=== PATIENT | female | born 1985 | race Caucasian/White ===

== ENCOUNTER 2021-01-14 21:27 | Emergency (ER) | payer OTHER, SELFPAY ==
[2021-01-14] VITALS (10 sets, daily range): BP systolic 126–133; BP diastolic 66–77; PULSE 115; RESP 18; TEMP 36.2; O2SAT 99–100
[2021-01-14] MEDS: SODIUM CHLORIDE 0.9% IV 1,000 ML 999 ML IV CONT (22:24)
[2021-01-14] MEDS: METOCLOPRAMIDE HCL INJ 10 MG/2 ML VIAL IV PUSH (22:24)
[2021-01-14] MEDS: diphenhydrAMINE HCl INJ 50 MG/ML VIAL 25 MG IV PUSH (22:24)
[2021-01-14 22:35] LABS: Basophils Percent Auto 0.2 % (0.2-1.2); Eosinophils Percent Auto 0.2 % (0-4.4); Hematocrit 33.2 % (37.0-47.0); Hemoglobin 11.3 g/dL (12.0-15.0); Immature Granulocyte Absolute 0.08 K/mm3 (0.00-0.031); Immature Granulocyte Percent A 0.6 % (0-0.5); Lymphocytes Absolute Auto 1.19 K/mm3 (0.9-3.2); Lymphocytes Percent Auto 9.5 % (18.3-44.2); Mean Corpuscular Volume 76.5 fl (80-100); Mean Platelet Volume 11.1 fl (7.4-10.4); Monocytes Percent Auto 7.7 % (2.6-8.5); Neutrophils Absolute Auto 10.2 K/mm3 (1.3-6.7); Neutrophils Percent Auto 81.8 % (45.5-73.1); Platelet Count Result 311 k/mm3 (150-375); Red Blood Count 4.34 M/mm3 (4.2-5.4); Red Cell Distribution Width 16.8 % (11.5-14.5); White Blood Count 12.5 K/mm3 (4.5-10.0)
--- NOTE | 2021-01-14 22:40 | PC.NURSE ---
Patient states she is unable to provide a urine specimen. Patient a/ox4, refusing straight cath. Patient aware of need for urine specimen.
--- NOTE | 2021-01-14 22:56 | ED.GENADULT ---
HPI - General Adult General Chief complaint: Nausea/Vomiting/Diarrhea Stated complaint: vomiting x 3 Time Seen by Provider: 01/14/21 22:08 History of Present Illness HPI narrative: Patient is a 35-year-old female presents to emergency department chief complaint of nausea and vomiting. Patient reports about 14 weeks and reports this evening she had about 3 episodes of nausea and vomiting patient denies fever denies abdominal pain denies diarrhea. Patient reports she has had problems with nausea during the but has been able to keep fluids down. Patient denies any trauma denies any vaginal bleeding or loss of fluids. Related Data Home Medications Medication Instructions Recorded Confirmed Pre-Sri Multivitamins/Minerals 01/14/21 Allergies Allergy/AdvReac Type Severity Reaction Status Date / Time Sulfa (Sulfonamide Allergy Vomiting Verified 01/14/21 21:43 Antibiotics) sulfamethoxazole Allergy Vomiting Verified 01/14/21 21:43 [From Bactrim] trimethoprim [From Bactrim] Allergy Vomiting Verified 01/14/21 21:43 Review of Systems Review of Systems: A 10 system review of systems was completed on the patient and is negative except for what is stated in the HPI. Nursing and ancillary documentation was reviewed. Exam Narrative: GENERAL: Well-appearing, well-nourished, and in no acute distress. HEAD: Normocephalic, atraumatic. EYES: PERRLA and EOMI. ENT: Nares clear, no rhinorrhea or epistaxis. Mucous membranes moist. NECK: Supple. CHEST: Clear to auscultation. No respiratory distress. HEART: Regular rate and rhythm. No murmur heard. Normal peripheral pulses. ABDOMEN: Soft, nontender, nondistended, normal active bowel sounds. EXTREMITIES: Normal range of motion. No edema. SKIN: Warm, dry, no rash. NEURO: No focal deficits. Alert and oriented x3. PSYCH: Normal mood and affect. Course Vital Signs Vital signs: Vital Signs Temperature 36.2 C L 01/14/21 21:40 Pulse Rate 115 H 01/14/21 21:40 Respiratory Rate 18 01/14/21 21:40 Blood Pressure 132/76 01/14/21 21:40 Pulse Oximetry 100 01/14/21 21:40 Temperature 36.2 C L 01/14/21 21:40 Pulse Rate 115 H 01/14/21 21:40 Respiratory Rate 18 01/14/21 21:40 Blood Pressure 130/77 01/14/21 23:31 Pulse Oximetry 100 01/14/21 23:31 Medical Decision Making Vital Signs Vital Signs: Vital Signs Temperature 36.2 C L 01/14/21 21:40 Pulse Rate 115 H 01/14/21 21:40 Respiratory Rate 18 01/14/21 21:40 Blood Pressure 132/76 01/14/21 21:40 Pulse Oximetry 100 01/14/21 21:40 Temperature 36.2 C L 01/14/21 21:40 Pulse Rate 115 H 01/14/21 21:40 Respiratory Rate 18 01/14/21 21:40 Blood Pressure 130/77 01/14/21 23:31 Pulse Oximetry 100 01/14/21 23:31 Lab Data Result diagrams: 01/14/21 22:29 01/14/21 22:29 Labs: Lab Results 01/14/21 01/14/21 01/14/21 Range/Units 22:29 22:29 22:58 WBC 12.5 H (4.5-10.0) K/mm3 RBC 4.34 (4.2-5.4) M/mm3 Hgb 11.3 L (12.0-15.0) g/dL Hct 33.2 L (37.0-47.0) % MCV 76.5 L (80-100) fl MCH 26.0 (26-34) pg MCHC 34.0 (32-36) g/dl RDW 16.8 H (11.5-14.5) % Plt Count 311 (150-375) k/mm3 MPV 11.1 H (7.4-10.4) fl Immature Gran % (Auto) 0.6 H (0-0.5) % Neut % (Auto) 81.8 H (45.5-73.1) % Lymph % (Auto) 9.5 L (18.3-44.2) % [place] % (Auto) 7.7 (2.6-8.5) % Eos % (Auto) 0.2 (0-4.4) % Baso % (Auto) 0.2 (0.2-1.2) % Lymph # (Auto) 1.19 (0.9-3.2) K/mm3 [place] # (Auto) 1.0 H (0.1-0.6) K/mm3 Eos # (Auto) 0.0 (0-0.3) K/mm3 Baso # (Auto) 0.0 (0.0-0.1) K/mm3 Abs Immat Gran (auto) 0.08 H (0.00-0.031) K/mm3 Absolute Neuts (auto) 10.2 H (1.3-6.7) K/mm3 Absolute Nucleated RBC 0.0 (0.0-0.012) K/mm3 Nucleated RBC % 0.0 (0.0-0.2) % Sodium 133 L (137-145) mmol/L Potassium 3.9 (3.4-5.0) mmol/L Chloride 104 (98-107) mmol/L Carbon Di
[2021-01-14 23:05] LABS: Alanine Aminotransferase 13 U/L (4-35); Alkaline Phosphatase 105 U/L (38-126); Anion Gap 7 mmol/L (8-16); Aspartate Amino Transferase 44 U/L (14-36); Bilirubin,Total 0.6 mg/dL (0.2-1.3); Blood Urea Nitrogen 7 mg/dL (7-17); Carbon Dioxide 22 mmol/L (22-30); Chloride 104 mmol/L (98-107); Estimated CRCL calculation 127 ml/min; Estimated Glomerular Filt Rate > 60; Glucose 94 mg/dL (65-110); Potassium 3.9 mmol/L (3.4-5.0); Sodium 133 mmol/L (137-145)
[2021-01-14 23:21] LABS: Lactic Acid Reflex 0.8 mmol/L (0.7-2.1)
[2021-01-14 23:36] LABS: Add Urine Microscopic? YES; Appearance Urine Cloudy (Clear); Bacteria Urine Trace /hpf; Bilirubin Urine Negative (Negative); Blood Urine Negative (Negative); Color Urine Yellow (Yellow); Glucose Urine UA Negative (Negative); Ketones Urine 1+ mg/dL (Negative); Leukocyte Esterase Ur Negative LEU/UL (Negative); Mucus Urine Heavy /lpf; Nitrate Urine Negative (Negative); Protein Urine 1+ mg/dL (Negative); Specific Grav Ur 1.018 (1.001-1.035); Squamous Epithelial Cell Urine Rare /hpf (Few); Urobilinogen Urine Negative mg/dL (<2.0); WBC Urine 0-3 /hpf
--- NOTE | 2021-01-14 23:56 | PC.NURSE ---
Patient given crackers and a cup of water for PO challenge. Patient states she does feel much better and her nausea has subsided.
[2021-01-15 00:19] VITALS: BP 130/77; PULSE 99; RESP 17; TEMP 36.6; O2SAT 100
== END 2021-01-15 00:20 | disposition home or self-care (01) ==
PROVIDERS: Emergency Provider Emergency Medicine; PCP Obstetrics & Gynecology
DX: O21.9 Vomiting of pregnancy, unspecified (principal); Z3A.14 14 weeks gestation of pregnancy
CPT/HCPCS: 36415; 80053; 81001; 83605; 85025; 96361; 96374; 96375; 99284; J1200; J2765; J7030

== ENCOUNTER 2021-06-25 15:55 | Inpatient (IN) | payer OTHER, SELFPAY ==
[2021-06-25] VITALS (17 sets, daily range): BP systolic 131–159; BP diastolic 73–91; PULSE 95–110; TEMP 37; BMI 35.4
--- OUTSIDE RECORDS SUMMARY | 2021-06-25 16:03 | XMS_ITS | Encounter Summary ---
:1985 Author Reason for Visit OB visit Assessment and Plan Assessment Note Patient is ___weeks . Discu ssed plan. 1. Routine care Discussion Note: None recorded.Patient educational handouts: No information available. Plan of Care Reminders Provider Appointments Induction Dontae Sunshine 06/26/2021 MD Lita 7:00AM ? Ob Routine Mat Sunshine 06/29/2021 MD Lita 3:45PM ? Ob Routine Mat Sunshine 07/05/2021 MD Lita 4:30PM Lab None ? ? recorded. Referral None ? ? recorded. Procedures None ? ? recorded. Surgeries None ? ? recorded. Imaging None ? ? recorded. Medications Name Start Date ? ? Gentle Iron (iron sulfate) ? iron ? ? Medications Administered None recorded. Vitals Height Weight BMI Blood Pressure 5 ft 2 in 189 lbs 34.6 kg/m2 (1) 146/85 mm[H g] (2) 137/88 mm[Hg ] Results Lab Results None recorded. Allergies Code Code Syst
--- OUTSIDE RECORDS SUMMARY | 2021-06-25 16:03 | XMS_ITS | Encounter Summary ---
:1985 Author Reason for Visit OB visit Assessment and Plan 1. Routine care Discussion Note: None recorded.Patient [...] BMI Blood Pressure 5 ft 2 in 182 lbs 33.3 kg/m2 123/75 mm[Hg] Results Lab Results None recorded. Allergies Code Code System Name Reaction Severity Onset 021147 RxNorm Bactrim Nausea Severe ?
--- OUTSIDE RECORDS SUMMARY | 2021-06-25 16:03 | XMS_ITS | Encounter Summary ---
[...] BMI Blood Pressure 5 ft 2 in 190 lbs 34.8 kg/m2 132/87 mm[Hg] Results Lab Results None recorded. Allergies Code Code System Name Reaction Severity Onset
--- OUTSIDE RECORDS SUMMARY | 2021-06-25 16:03 | XMS_ITS | Encounter Summary ---
:1985 Author Reason for Visit OB visit Assessment and Plan Assessment Note Patient is ___weeks . Discu ssed plan. 1. -induced hypertensio n Discussion Note: None recorded.Patient educational handouts: No information available. Plan of Care Reminders Provider Appointments Induction Dontae Sunsihne 06/26/2021 MD Lita 7:00AM ? Ob Routine [...] BMI Blood Pressure 5 ft 2 in 193 lbs 35.3 kg/m2 (1) 151/93 mm[H g] (2) 149/86 mm[Hg ] Results Lab Results None recorded. Allergies Code
--- OUTSIDE RECORDS SUMMARY | 2021-06-25 16:03 | XMS_ITS | Encounter Summary ---
[...] BMI Blood Pressure 5 ft 2 in 187 lbs 34.2 kg/m2 134/83 mm[Hg] Results Lab Results None recorded. Allergies Code Code System Name Reaction Severity Onset
--- OUTSIDE RECORDS SUMMARY | 2021-06-25 16:03 | XMS_ITS | Encounter Summary ---
:1985 Author Reason for Visit OB visit OB [id number] EDC 07/09/2021 LMP 10/06/2020 Assessment and Plan Assessment Note Patient is _32__weeks . Dis cussed plan. 1. Routine care Discussion Note: None [...] BMI Blood Pressure 5 ft 2 in 184 lbs 33.7 kg/m2 139/83 mm[Hg] Results Lab Results None recorded. Allergies Code Code System Name
--- OUTSIDE RECORDS SUMMARY | 2021-06-25 16:03 | XMS_ITS | Encounter Summary ---
:1985 Author Reason for Visit OB visit 30w2d Assessment and Plan 1. Routine care Discussion [...] ft 2 in 182 lbs 33.3 kg/m2 130/81 mm[Hg] Results Lab Results None recorded. Allergies Code Code System Name Reaction Severity Onset 770535 RxNorm Bactrim Nausea Severe ?
--- OUTSIDE RECORDS SUMMARY | 2021-06-25 16:03 | XMS_ITS | Encounter Summary ---
:1985 Author Reason for Visit None recorded. Assessment and Plan 1. -induced hypertensio n ? non-stress test Discussion Note: None recorded.Patient educational handouts: No information available. Plan of Care Reminders Provider Appointments Induction Dontae Sunshine 06/26/2021 MD Lita 7:00AM ? Ob Routine Mat Sunshine 06/29/2021 MD Lita 3:45PM ? Ob Routine Mat Sunshine 07/05/2021 MD Lita 4:30PM Lab None ? ? recorded. Referral None ? ? recorded. Procedures None ? ? recorded. Surgeries None ? ? recorded. Imaging Non-stress [place] Test 06/23/2021 Medications Name Start Date ? ? Gentle Iron (iron sulfate) ? iron ? ? Medications Administered None recorded. Vitals None recorded. Results Lab Results None recorded. Allergies Code Code System Name Reaction Severity Onset 863847 RxNorm Bactrim Nausea Severe ?
--- OUTSIDE RECORDS SUMMARY | 2021-06-25 16:03 | XMS_ITS | Encounter Summary ---
:1985 Author Reason for Visit None recorded. Assessment and Plan 1. Uterine size for dates discre pancy ? US, obstetric, follow-up Discussion Note: None recorded.Patient educational handouts: No information available. Plan of Care Reminders Provider Appointments Induction Dontae Sunshine 06/26/2021 MD Lita 7:00AM ? Ob Routine Mat Sunshine 06/29/2021 MD Lita 3:45PM ? Ob Routine Mat Sunshine 07/05/2021 MD Lita 4:30PM Lab None ? ? recorded. Referral None ? ? recorded. Procedures None ? ? recorded. Surgeries None ? ? recorded. Imaging , [place] [facility], Follow-up 06/15/2021 Medications Name Start Date ? ? Gentle Iron (iron sulfate) ? iron ? ? Medications Administered None recorded. Vitals None recorded. Results Lab Results None recorded. Allergies Code Code System Name Reaction Severity Onset 955895 RxNorm Bactrim Nausea Severe ?
--- OUTSIDE RECORDS SUMMARY | 2021-06-25 16:03 | XMS_ITS ---
:1985 Author Care Team Providers Name Role Phone Caesar London Primary Care Provider Unavailable Allergies Code Code System Name Reaction Severity Status Onset 434971 RxNorm Bactrim Nausea Severe Active ? Sulfa (Sulfonamide ? ? Active ? Antibiotics) 22040 RxNorm Sulfabenzamide Nausea Moderate Active ? Medications Name Status Start Date Stop Date ? ? fc2 female condom misc Completed ? 021 Gentle Iron (iron sulfate) Active ? Not a vailable iron Active ? Not available levonorgestrel 1.5 mg tablet Completed ? metoclopramide 10 mg tablet Completed ? 01/03 TAKE 1 TABLET BY MOUTH EVERY 6 HOURS NEEDED FOR NAUSEA OR VO MITING Active ? Not available Vienva 0.1 mg-20 mcg tablet Completed ? 12/02 Problems Name Status Onset Date Source ? Active 12/28/2020 ? Procedures Date Name Performed by ? 03/04/2010 Extraction of Strum Tooth Information n ot available 03/04/2008 Tonsilectomy/adenoids Information not av ailable ? Tonsilectomy/adenoids Information not av ailable 12/28/2020 US, Obstetric, 1St Trimester [place] [address] [place] [address] ([address]) 02/22/2021 US, Obstetric, 2Nd or 3Rd Trimester [place]ela montero [address]
[2021-06-25 16:58] LABS: Basophils Absolute Auto 0.1 K/mm3 (0.0-0.1); Basophils Percent Auto 0.4 % (0.2-1.2); Eosinophils Absolute Auto 0.1 K/mm3 (0-0.3); Eosinophils Percent Auto 0.5 % (0-4.4); Hematocrit 36.8 % (37.0-47.0); Hemoglobin 12.3 g/dL (12.0-15.0); Immature Granulocyte Absolute 0.23 K/mm3 (0.00-0.031); Immature Granulocyte Percent A 1.8 % (0-0.5); Lymphocytes Absolute Auto 2.59 K/mm3 (0.9-3.2); Lymphocytes Percent Auto 20.6 % (18.3-44.2); Mean Corpuscular HGB Conc 33.4 g/dl (32-36); Mean Corpuscular Hemoglobin 28.3 pg (26-34); Mean Corpuscular Volume 84.6 fl (80-100); Mean Platelet Volume 12.7 fl (7.4-10.4); Neutrophils Absolute Auto 8.7 K/mm3 (1.3-6.7); Neutrophils Percent Auto 68.7 % (45.5-73.1); Platelet Count Result 227 k/mm3 (150-375); Red Blood Count 4.35 M/mm3 (4.2-5.4); White Blood Count 12.6 K/mm3 (4.5-10.0)
--- NOTE | 2021-06-25 16:59 | WPDANESEPP ---
Anes - Eval Pre Procedure Procedure: labor epidural Date/Time: 06/25/21 16:59 Surgeon: soumya Pre Op Diagnosis: IOL Patient Data Age: 35 Gender: F Height: Weight: Last Vital Signs Pulse 95 06/25/21 16:31 BP 150/88 H 06/25/21 16:31 Allergies Allergy/AdvReac Type Severity Reaction Status Date / Time Sulfa (Sulfonamide Allergy Vomiting Verified 01/14/21 21:43 Antibiotics) sulfabenzamide Allergy Vomiting Verified 06/12/21 14:44 sulfamethoxazole Allergy Vomiting Verified 01/14/21 21:43 [From Bactrim] trimethoprim [From Bactrim] Allergy Vomiting Verified 01/14/21 21:43 Home Medications Medication Instructions Recorded Confirmed Type Pre-Sri Multivitamins/Minerals 01/14/21 History ferrous sulfate 140 mg PO DAILY 06/12/21 06/12/21 History Laboratory Tests 06/25/21 06/25/21 06/25/21 16:48 16:48 16:48 WBC 12.6 K/mm3 H K/mm3 (4.5-10.0) RBC 4.35 M/mm3 M/mm3 (4.2-5.4) Hgb 12.3 g/dL g/dL (12.0-15.0) Hct 36.8 % L % (37.0-47.0) MCV 84.6 fl fl (80-100) MCH 28.3 pg pg (26-34) MCHC 33.4 g/dl g/dl (32-36) RDW 16.0 % H % (11.5-14.5) Plt Count 227 k/mm3 k/mm3 (150-375) MPV 12.7 fl H fl (7.4-10.4) Immature Gran % (Auto) 1.8 % H % (0-0.5) Neut % (Auto) 68.7 % % (45.5-73.1) Lymph % (Auto) 20.6 % % (18.3-44.2) [place] % (Auto) 8.0 % % (2.6-8.5) Eos % (Auto) 0.5 % % (0-4.4) Baso % (Auto) 0.4 % % (0.2-1.2) Lymph # (Auto) 2.59 K/mm3 K/mm3 (0.9-3.2) [place] # (Auto) 1.0 K/mm3 H K/mm3 (0.1-0.6) Eos # (Auto) 0.1 K/mm3 K/mm3 (0-0.3) Baso # (Auto) 0.1 K/mm3 K/mm3 (0.0-0.1) Abs Immat Gran (auto) 0.23 K/mm3 H K/mm3 (0.00-0.031) Absolute Neuts (auto) 8.7 K/mm3 H K/mm3 (1.3-6.7) Absolute Nucleated RBC 0.0 K/mm3 K/mm3 (0.0-0.012) Nucleated RBC % 0.0 % % (0.0-0.2) Sodium Pending Potassium Pending Chloride Pending Carbon Dioxide Pending Anion Gap Pending BUN Pending Creatinine Pending Estim Creat Clear Calc Pending Estimated GFR Pending Glucose Pending Uric Acid Pending Calcium Pending Total Bilirubin Pending AST Pending ALT Pending Alkaline Phosphatase Pending Total Protein Pending Albumin Pending RPR 06/25/21 16:49 WBC RBC Hgb Hct MCV MCH MCHC RDW Plt Count MPV Immature Gran % (Auto) Neut % (Auto) Lymph % (Auto) [place] % (Auto) Eos % (Auto) Baso % (Auto) Lymph # (Auto) [place] # (Auto) Eos # (Auto) Baso # (Auto) Abs Immat Gran (auto) Absolute Neuts (auto) Absolute Nucleated RBC Nucleated RBC % Sodium Potassium Chloride Carbon Dioxide Anion Gap BUN Creatinine Estim Creat Clear Calc Estimated GFR Glucose Uric Acid Calcium Total Bilirubin AST ALT Alkaline Phosphatase Total Protein Albumin RPR Pending Patient hx anesthesia problems: none Family hx anesthesia problems: none Results Review: All pre-operative results and documents have been reviewed as part of the pre-operative evaluation. [facility] Family History Family History (Updated 06/12/21 @ 14:53 by Sam Lopez RN) Father Kidney disease Hypertension Mother High cholesterol Hypertension Grandparent Heart disease Emphysema lung Chronic obstructive pulmonary disease Grandparent Cerebrovascular accident Graves disease Grandparent Chronic obstructive pulmonary
[2021-06-25] MEDS: DINOPROSTONE 10 MG VAG INSERT VAGINAL (17:02)
[2021-06-25 17:08] LABS: Alanine Aminotransferase 14 U/L (4-35); Albumin Level 3.6 g/dL (3.5-5.1); Alkaline Phosphatase 167 U/L (38-126); Anion Gap 7 mmol/L (8-16); Aspartate Amino Transferase 44 U/L (14-36); Bilirubin,Total 0.6 mg/dL (0.2-1.3); Blood Urea Nitrogen 7 mg/dL (7-17); Carbon Dioxide 21 mmol/L (22-30); Chloride 107 mmol/L (98-107); Estimated Glomerular Filt Rate > 60; Glucose 83 mg/dL (65-110); Potassium 3.4 mmol/L (3.4-5.0); Sodium 135 mmol/L (137-145); Uric Acid 3.9 mg/dL (2.5-7.5)
--- NOTE | 2021-06-25 17:09 | LDADM ---
This patient, Leila Martínez, was admitted to Labor/Delivery/Recovery 106 on 06/25/21 at 15:55. Plans for labor, pain management and were discussed with patient. Patient/family oriented to hospital policies and general routines including ID bracelet, bed and alarms, visiting hours, pain management, procedures, bathroom and other care routines, personal items, smoking policy, room service/diet and guest tray routines, infant security routines, and visiting hours. Patient/Family are encouraged to report perceived risks to care and to ask questions if they do not understand what they are told or what they should do. See OBIX for further documentation.
[2021-06-26] VITALS (264 sets, daily range): BP systolic 46–152; BP diastolic 14–126; PULSE 74–172; RESP 16–18; TEMP 36.2–38.3; O2SAT 83–100
[2021-06-26] MEDS: LACTATED RINGERS 1,000 ML 125 ML IV CONT ×4 (02:59→08:53)
[2021-06-26] MEDS: AMPICILLIN 2 GM/NS 100 ML 2 GM/100 ML BAG IVPB (02:59)
[2021-06-26] MEDS: fentaNYL CITRATE INJ (*CRX) 100 MCG/2 ML VIAL 50 MCG IV PUSH ×2 (04:14→05:39)
[2021-06-26] MEDS: OXYTOCIN 30 UNITS/NS 500 ML 30 UNITS/500 ML BAG 6 UNITS IV CONT (06:45)
[2021-06-26] MEDS: AMPICILLIN 1 GM/NS 50 ML 1 GM/50 ML BAG IVPB ×3 (07:11→15:21)
[2021-06-26] MEDS: ONDANSETRON INJ 4 MG/2 ML VIAL IV PUSH ×2 (07:27→18:01)
--- NOTE | 2021-06-26 07:55 | P.HPUP_ITS ---
History and Physical Update Update Date/Time: 06/26/21 07:55 35y/o G1 at 37 week. Induction of labor for Gesta tional HTN. SROM, s/p cervidil, pitocin started and epidural placed. EFM and expectant. History and Physical has been reviewed, including an updated exam of the patient. There are NO changes in the patient's condition. Risks, benefits, and alternatives have been discussed and questions answered. Patient agrees to proceed with procedure.
[2021-06-26 09:00] LABS: Rapid Plasma Reagin Non-Reactive (NonReactive)
[2021-06-26] MEDS: miSOPROStol 200 MCG TABLET 1000 MCG (19:18)
--- NOTE | 2021-06-26 19:52 | PM.OBPRVD ---
OB - Delivery Note Procedure Delivery date: 06/26/21 Procedure: , intrauterine balloon insertion, hemorrhage management Induction method: AROM, Per Pitocin Protocol and Per Cervidil Protocol Delivery monitor: External FHT and Internal Uterine Route of delivery: Laceration Description: Perineal - 2nd Degree Delivery repair: vicryl Specimen: Yes ( placenta) Quantitative Blood Loss (ml): 759 Anesthesia type: Epidural Baby Date of : 06/26/21 Time of : 19:04 Weeks of gestation at delivery: 38 Infant gender: Female Weight (pounds): 6 Weight (ounces): 10 position: Right Occiput Anterior Placenta delivery description: Spontaneous score one minute: 9 score five minutes: 9 Narrative: management of hemorrhage. There was modest a continuous bleeding from the uterus. A Bakri balloon was inserted. This was done early in the process. Earlier than my usual practice. It was anticipatory. Persistent bleeding that did not change with Cytotec placement, repetitive fundal massage, evaluation for intrauterine clots and distension with manual exploration of the intrauterine cavity. Bakri balloon was placed and filled to about 250-300 cc. Much improved blood loss at that time. There was using areas throughout the vagina. Multiple sutures were used to close the second-degree perineal laceration as well as bleeding areas of the distal vagina. The vagina continue to whose. The vagina was packed with a vaginal pack. It was all hemostatic at the end of this process.
--- NOTE | 2021-06-26 22:36 | OBPPTRN ---
Patient transferred to post room # 279 via wheelchair. Support person present. Oriented to unit, room, information board, rooming in, admission packet and security measures. Patient verbalizes understanding.
[2021-06-26] MEDS: ACETAMINOPHEN 325 MG TABLET 650 MG PO (23:28)
[2021-06-27 04:30] VITALS: BP 126/80; PULSE 109; RESP 16; TEMP 37.1; O2SAT 100
[2021-06-27] MEDS: ACETAMINOPHEN 325 MG TABLET 650 MG PO (05:28)
[2021-06-27 06:03] LABS: Hematocrit 30.8 % (37.0-47.0)
[2021-06-27 07:30] VITALS: BP 125/78; PULSE 104; RESP 18; TEMP 37.6; O2SAT 99
--- NOTE | 2021-06-27 07:57 | PM.OBPNVD ---
OB - PN: Subj Subjective Date/time seen: 06/27/21 07:57 Patient comments: no complaints, pain well controlled, incisional pain, tolerating diet and flatus present OB - PN: Obj Data Labs CBC & Chem 7: 06/27/21 04:44 06/25/21 16:48 Labs: Laboratory Results - last 24 hr 06/25/21 06/27/21 16:49 04:44 Hgb 10.0 L Hct 30.8 L RPR Non-reactive OB - PN A/P Plan day: 1 Plan: routine care Comments: No problems, routine care, status post hemorrhage. Reasonably good hemoglobin hematocrit, normal vitals, Bakri balloon removed, vaginal packing removed, no/minimal bleeding currently. Time Spent With Patient Time: Total time spent is greater than 50% in coordination of care (as documented) at patient's floor/unit and/or counseling patient: Exam Const: General: comfortable, no acute distress and alert Resp: Effort & Inspection: normal respiratory effort Auscultation: no crackles, no rales and no rhonchi Cardio: Rate: regular rate Heart sounds: no click, no murmurs and no rubs GI: Inspection: non-distended GI Palp: No Tenderness to palpation present (GI) Auscultation: normal bowel sounds Other: Incision - CDI Extrem: General: normal to inspection, no pedal edema and no calf tenderness
[2021-06-27] MEDS: IBUPROFEN 600 MG TABLET PO ×2 (08:30→17:11)
[2021-06-27] MEDS: MULTIVIT/MIN/PREN/FOL AC/IRON TABLET 1 TAB PO (08:30)
--- NOTE | 2021-06-27 09:20 | WPDANLDPN2 ---
Anes-Prog Note L&D Date/Time: 06/27/21 09:20 Comfortable throughout: labor and delivery Neuraxial method: epidural Epidural/Spinal procedure site: clean & non-tender Neuro status: Neuro function grossly intact. Cardiovascular status: normal Respiratory status: normal Airway patency: baseline Mental status: baseline Post-Op hydration status: normal Vital Signs: Last Vital Signs Temp 98.7 F 06/27/21 04:30 Pulse 109 H 06/27/21 04:30 Resp 16 06/27/21 04:30 BP 126/80 06/27/21 04:30 Pulse Ox 100 06/27/21 04:30 Pain score (VAS): 0 I/O: Intake & Output 06/26/21 06/27/21 06/27/21 23:59 07:59 15:59 Intake Total 300 Output Total 10 550 Balance -10 -250 Post-procedural complaints: none Patient feedback: Patient satisfied with anesthetic care.
--- NOTE | 2021-06-27 11:01 | PC.NURSE ---
1755 - 1609 Introductions were made, then consulted with patient to assess needs related to . Mother led the conversation with her experience feeding her infant so far with and supplementing. Mother works well with her infant with encouragement and education. Encouraged understanding of the benefits of skin to skin (unwrapping and placing vertically on her chest), responsive feeding and how to watch for early feeding signs, frequency of feeding on demand about every 8-12 times in 24 hours (every 2-3 hours), milk production, duration of feeding, signs of adequate intake/output and how to record on the feeding sheet. Reviewed positioning and ear, shoulder, hip alignment, supporting the breast, asymmetrical latch (off-center), and leading with the chin with a big open side gape. latched optimally to the left breast in cross cradle position. takes a few sucks, then pulls off and cries. latches well to the right breast in football position sucks for a while, then pulls off and sleeps. Mother demonstrates education regarding position changes, stimulating infant to eat, waiting for the big, wide open gape, and brings to the breast well. is frantic or sleepy. Supplemented with 10cc. Breast pump provided due to ineffective . Instructions given on cleaning, care, usage, there should be no pain, pumping schedule for milk production, collection, and storage of human milk. Parents are encouraged to record pumping schedule on the feeding sheet. Patient was assessed for correct placement, flange size, to pump for comfort and nipple stretching/stimulation for adequate milk production. Nipple care reviewed with optimal latch and good positioning. Reminding mother of comfort measures of healing with a warm and wet washcloth to rinse breast, then leave open to air-dry as needed. Reviewed good handwashing when or touching the breast/nipples to prevent infection. Resources used to facilitate learning were used with the visual handouts/ tool/mom and baby guide. Mother voiced understanding of responsive feedings, stimulating with skin to skin, hand expressed colostrum, touch, talking to to encourage if it has been 2 -3 hours since the start of the last , to call if infant does not latch or there is discomfort with . Reported to the primary RN. After pumping session was complete patient called for RN to collect the human milk that mother had pumped. Human milk expressed is a total of 8 mls., and 3 mls was syringe fed to infant due to infant quiet, alert, awake and demonstrating feeding cues. The parents will use the remainder 5 mls for the next attempt if needed, otherwise it will be stored. Reported to primary RN.
[2021-06-27 12:00] VITALS: BP 136/65; PULSE 102; RESP 18; TEMP 36.7; O2SAT 99
[2021-06-27 16:00] VITALS: BP 135/82; PULSE 95; RESP 18; TEMP 36.9; O2SAT 99
[2021-06-27] MEDS: DOCUSATE SODIUM 100 MG CAPSULE PO (17:12)
[2021-06-27 20:40] VITALS: BP 125/73; PULSE 98; RESP 16; TEMP 36.7
[2021-06-28 04:15] VITALS: BP 132/72; PULSE 104; RESP 16; TEMP 36.7
[2021-06-28 07:55] VITALS: BP 138/90; PULSE 98; RESP 16; TEMP 36.9; O2SAT 100
--- NOTE | 2021-06-28 07:55 | PM.OBPNVD ---
OB - PN: Subj Subjective Date/time seen: 06/28/21 07:55 Patient comments: no complaints baby status: doing well [place] feeding status: breast and bottle feeding OB - PN: Obj Data Labs CBC & Chem 7: 06/27/21 04:44 06/25/21 16:48 OB - PN A/P Plan day: 2 Plan: routine care and discharge home Time Spent With Patient Time: Total time spent is greater than 50% in coordination of care (as documented) at patient's floor/unit and/or counseling patient: Review of Systems Review of Systems: All systems reviewed & are unremarkable except as noted in HPI and below Exam Const: General: cooperative, healthy appearing, comfortable and no acute distress
--- NOTE | 2021-06-28 07:57 | P.DS_ITS ---
DS: Admitting Diagnosis Discharge Date 06/28/21 Admitting Diagnosis iol OB - DS: Summary OB Procedures : None OB Procedures Intrapartum: Spontaneous Vag Delivery and Uterine exploration OB Procedures: : None Time Spent with Patient Time attestation: Total time spent providing and/or coordinating discharge services: DS: Data Data Completed and Pending Pending studies at discharge: Pending at discharge 06/26/21 19:10 Surgical [PTH] Routine Discharge Plan Discharge Attending physician on discharge: Abhijit London Discharging Clinician: Sheba Groves Patient Disposition: Home, Self-Care Activity: pelvic rest Diet: regular Patient Instructions: Antibiotic Form Stand Alone Forms: General Discharge Information Follow-up/Referrals: Abhijit London MD [Physician] - 4 Weeks Discharge Medications: Continued Pre-Sri Multivitamins/Minerals 1 tab-cap PO DAILY RF: 0 ferrous sulfate 140 mg (45 mg iron) Tablet Extended Release 140 mg PO DAILY RF: 0 Date of admission: 06/25/21 15:55 Primary Care Provider: PHYSICIAN,DRAPERY SUPERVISOR Admitting Provider: Abhijit London Attending physician on admission: Abhijit London Condition: Stable
[2021-06-28] MEDS: IBUPROFEN 600 MG TABLET PO (08:25)
[2021-06-28] MEDS: MULTIVIT/MIN/PREN/FOL AC/IRON TABLET 1 TAB PO (08:25)
[2021-06-29 08:51] VITALS: BP 137/84; PULSE 89; RESP 20; TEMP 36.9; O2SAT 100
== END 2021-06-28 14:37 | disposition home or self-care (01) | DRG 807 ==
LOC: ANHLDR 16:01 → ANHOB2 06-26 22:40
PROVIDERS: Admitting Provider Obstetrics & Gynecology; Visit Provider Obstetrics & Gynecology
DX: O13.4 Gestational [pregnancy-induced] hypertension without significant proteinuria, complicating childbirth (principal); Z37.0 Single live birth; Z3A.38 38 weeks gestation of pregnancy; O99.824 Streptococcus B carrier state complicating childbirth; O70.1 Second degree perineal laceration during delivery; O36.8330 Maternal care for abnormalities of the fetal heart rate or rhythm, third trimester, not applicable or unspecified
CPT/HCPCS: 36415; 80053; 84550; 85014; 85018; 85025; 86592; 86850; 86900; 86901; 88307; A9270; J0290; J2405; J2590; J2795; J3010; J7120

== ENCOUNTER 2022-10-19 12:40 | Outpatient (CLI) | payer OTHER, SELFPAY ==
[2022-10-19 18:23] LABS: Basophils Absolute Auto 0.1 K/mm3 (0.0-0.1); Basophils Percent Auto 0.4 % (0.2-1.2); Eosinophils Absolute Auto 0.1 K/mm3 (0-0.3); Eosinophils Percent Auto 0.9 % (0-4.4); Hematocrit 43.3 % (37.0-47.0); Hemoglobin 14.3 g/dL (12.0-15.0); Immature Granulocyte Absolute 0.05 K/mm3 (0.00-0.031); Immature Granulocyte Percent A 0.4 % (0-0.5); Lymphocytes Absolute Auto 4.06 K/mm3 (0.9-3.2); Lymphocytes Percent Auto 34.2 % (18.3-44.2); Mean Corpuscular Hemoglobin 27.7 pg (26-34); Mean Corpuscular Volume 83.9 fl (80-100); Mean Platelet Volume 11.5 fl (7.4-10.4); Monocytes Absolute Auto 0.7 K/mm3 (0.1-0.6); Monocytes Percent Auto 5.5 % (2.6-8.5); Neutrophils Percent Auto 58.6 % (45.5-73.1); Platelet Count Result 330 k/mm3 (150-375); Red Blood Count 5.16 M/mm3 (4.2-5.4); Red Cell Distribution Width 12.8 % (11.5-14.5); White Blood Count 11.9 K/mm3 (4.5-10.0)
[2022-10-19 18:47] LABS: Alanine Aminotransferase 21 U/L (6-35); Albumin Level 4.3 g/dL (3.5-5.1); Alkaline Phosphatase 144 U/L (38-126); Anion Gap 4 mmol/L (8-16); Aspartate Amino Transferase 81 U/L (14-36); Bilirubin,Total 0.6 mg/dL (0.2-1.3); Blood Urea Nitrogen 9 mg/dL (7-17); Calcium 9.1 mg/dL (8.4-10.2); Carbon Dioxide 26 mmol/L (22-30); Chloride 102 mmol/L (98-107); Estimated Glomerular Filt Rate > 60; Glucose 131 mg/dL (65-110); Sodium 132 mmol/L (137-145)
== END 2022-10-19 12:41 | disposition home or self-care (01) ==
LOC: ANHGOSHLAB 12:42
PROVIDERS: PCP Family Medicine; Visit Provider Family Medicine
DX: R53.83 Other fatigue (principal); Z13.29 Encounter for screening for other suspected endocrine disorder; Z13.228 Encounter for screening for other metabolic disorders
CPT/HCPCS: 36415; 80053; 84443; 85025

== ENCOUNTER 2023-06-20 16:18 | Emergency (ER) | payer OTHER, SELFPAY ==
[2023-06-20 16:25] VITALS: BP 127/84; PULSE 84; RESP 18; TEMP 36.7; O2SAT 100
[2023-06-20 16:27] VITALS: BP 127/84; PULSE 84; RESP 18; TEMP 36.7; O2SAT 100
--- NOTE | 2023-06-20 16:40 | ED.URI ---
HPI - URI/Sore Throat General Chief Complaint: Upper Respiratory Infection Stated Complaint: Throat Irritation and Sinus Problems Time Seen by Provider: 06/20/23 16:34 Source: patient, RN notes reviewed and old records reviewed Mode of arrival: ambulatory Limitations: no limitations History of Present Illness HPI Narrative: Patient presents today with a 9-10 day history of nasal congestion, rhinorrhea, with a 4 day history of productive cough. Reports her eyes became red yesterday. She had a few episodes of vomiting and diarrhea 3 days ago, but none since then. She has been taking Coricidin and Benadryl with little relief. No shortness of breath. History of chronic sinusitis and deviated septum. No recent antibiotic use. Related Data Allergies Allergy/AdvReac Type Severity Reaction Status Date / Time Sulfa (Sulfonamide AdvReac Vomiting Verified 06/20/23 16:26 Antibiotics) sulfabenzamide AdvReac Vomiting Verified 06/20/23 16:26 sulfamethoxazole AdvReac Vomiting Verified 06/20/23 16:26 [From Bactrim] trimethoprim [From Bactrim] AdvReac Vomiting Verified 06/20/23 16:26 Review of Systems Review of Systems: CONSTITUTIONAL: Denies body aches, fever, chills, or sweats. EYES: Denies visual changes, or discharge.+ bilateral eye redness ENT: Denies sore throat, or otalgia.+ congestion, rhinorrhea CARDIOVASCULAR: Denies chest pain, palpitations, or edema. RESPIRATORY: Denies dyspnea.+ cough GASTROINTESTINAL: Denies abdominal pain, nausea. + vomiting, diarrhea GENITOURINARY: Denies dysuria or hematuria. SKIN: Denies rash, itching, or wounds. MUSCULOSKELETAL: Denies back pain, joint pain, or myalgia. NEUROLOGIC: Denies headache, numbness, tingling, or weakness. PSYCH: Denies depression or anxiety. [facility] Family History Family History Father Kidney disease Hypertension Mother High cholesterol Hypertension Grandparent Heart disease Emphysema lung Chronic obstructive pulmonary disease Grandparent Cerebrovascular accident Graves disease Grandparent Chronic obstructive pulmonary disease Social History Social History Smoking status: Never smoker Alcohol intake: current Drinks per week: 1 Substance use: never Lack of Transportation: No Lack of Food: Never True Current Housing: I Have Housing Concerned About Future Housing: No Difficulty Paying Gas/Electric Bills: No Difficulty Paying for Meds: No Currently Unemployed: No Education: Bachelor's Degree Difficulty w/ Childcare or Family Care: No Living arrangements: with family Spiritual care concerns: No Comments At time of signature, I have reviewed and agree with nursing past medical, surgical, social and family history unless otherwise noted. Please see nursing chart for further information. There is no relevant family history pertinent to the presenting complaint Exam Narrative: GENERAL: Well-appearing, well-nourished, and in no acute distress. HEAD: Normocephalic, atraumatic. EYES: EOMI. No redness or drainage. Bilateral conjunctiva are mildly erythematous without active drainage. ENT: Mucous membranes pink and moist. Nares congested. No rhinorrhea. Bilateral frontal and maxillary sinus tenderness. TMs normal bilaterally. Throat normal. Uvula midline. Bilateral swollen nasal turbinates with purulent discharge. NECK: Normal AROM. Supple. Bilateral anterior cervical chain tenderness. CHEST: No respiratory distress. Clear to auscultation. Harsh cough noted. HEART: Regular rate and rhythm. No murmur appreciated. EXTREMITIES: Normal range of motion. No edema. SKIN: Warm, dry, no rash. Capillary refill normal. Normal skin turgor. NEURO: No focal deficits. Alert and oriented x3. Gait steady. PSYCH: Normal affect. No signs of depression or anxiety. Course Course Level of Care: Exp
== END 2023-06-20 16:48 | disposition home or self-care (01) ==
PROVIDERS: Emergency Provider Nurse Practitioner; PCP Family Medicine
DX: J01.90 Acute sinusitis, unspecified (principal)
CPT/HCPCS: 99213; G0463

== ENCOUNTER 2023-07-26 13:34 | Outpatient (CLI) | payer OTHER, SELFPAY ==
--- NOTE | ~2023-07-26 | CT_ITS ---
EXAMINATION: CT sinus wo con DATE: 07/26/2023 13:47 INDICATION: Acute recurrent sinusitis TECHNIQUE: Computed tomography (CT) of the paranasal sinuses was performed without contrast. Iterativ e reconstruction technique was employed. Exam dose: 290.62 mGy-cm total exam DLP. COMPARISON: None FINDINGS: There is rightward deviation of the nasal septum. There is prominent soft tissue swelling o f the middle and inferior nasal turbinates, left greater than right. There is partial soft tissue opa cification of the left middle meatus. There is mild soft tissue thickening of the right maxillary ostium and infundibulum. More prominent s oft tissue thickening is noted partially occluding the left maxillary ostium and infundibulum. There is moderate opacification of the frontal sinuses, particularly in the frontal ethmoid areas. Pr ominent patchy soft tissue opacification of the ethmoid air cells is noted bilaterally. Up to 1.4 x 2 cm polypoid soft tissue opacity at the floor of the left maxillary ostium and mild to m oderate nodular mucoperiosteal thickening of the left maxillary antrum. Overall 1.6 x 2.4 cm polypoid soft tissue opacity at the floor of the right maxillary sinus, with mil d inferior and lateral right mucoperiosteal thickening. Mild amount of mucoperiosteal thickening of the sphenoid sinuses, right greater than left. The mastoid air cells are well developed and aerated. Middle and inner ear apparatus appear unremarka ble. IMPRESSION: Rightward nasal septal deviation Prominent soft tissue swelling of the nasal turbinates, left greater than right Bilateral maxillary ostium and infundibulum soft tissue thickening, greater on the left Prominent polypoid soft tissue opacities in the floor both maxillary sinuses with mild to moderate mu coperiosteal thickening of the frontal, maxillary and sphenoid sinuses and prominent patchy opacifica tion of the ethmoids Reviewed, dictated and finalized at [facility]. Reviewed, dictated and finalized at [facility]. IMPRESSION: Rightward nasal septal deviation Prominent soft tissue swelling of the nasal turbinates, left greater than right Bilateral maxillary ostium and infundibulum soft tissue thickening, greater on the left Prominent polypoid soft tissue opacities in the floor both maxillary sinuses wi th mild to moderate mucoperiosteal thickening of the frontal, maxillary and sph enoid sinuses and prominent patchy opacification of the ethmoids
== END 2023-07-26 13:35 ==
PROVIDERS: PCP Otolaryngology; Visit Provider Otolaryngology
DX: J01.91 Acute recurrent sinusitis, unspecified (principal); J34.2 Deviated nasal septum; J32.8 Other chronic sinusitis
CPT/HCPCS: 70486

== ENCOUNTER 2023-08-19 17:52 | Emergency (ER) | payer OTHER, SELFPAY ==
--- NOTE | ~2023-08-19 | XR_ITS ---
EXAM: XR toe 4th LT min 2V DATE: 08/19/2023 18:19 HISTORY: pain left 4th toe , injury . COMPARISON: None available. FINDINGS: Normal mineralization. No fracture or dislocation. No lytic or blastic lesion. Joint space s and physes are maintained. No erosion or periosteal change. Soft tissues within normal limits. IMPRESSION: No acute osseous finding in the left fourth toe. Reviewed, dictated and finalized at [facility].
--- NOTE | 2023-08-19 17:59 | ED.LOWEXIN ---
HPI - Extremity Injury (Lower) General Chief Complaint: Extremity Injury, Lower Stated Complaint: left ring toe injury Time Seen by Provider: 08/19/23 17:58 Source: patient Mode of arrival: ambulatory Limitations: no limitations History of Present Illness HPI Narrative: Patient is a 37-year-old female who presents with right 4th toe pain, bruising and swelling. Patient had her work drop on toe approximately 1 hour prior to arrival. Patient did use ice. Patient states bruising has improved slightly. Patient reports pain with movement and walking. Patient has not taken anything for pain. Related Data Allergies Allergy/AdvReac Type Severity Reaction Status Date / Time Sulfa (Sulfonamide AdvReac Vomiting Verified 08/19/23 18:14 Antibiotics) sulfabenzamide AdvReac Vomiting Verified 08/19/23 18:14 sulfamethoxazole AdvReac Vomiting Verified 08/19/23 18:14 [From Bactrim] trimethoprim [From Bactrim] AdvReac Vomiting Verified 08/19/23 18:14 Review of Systems Review of Systems: All systems reviewed & are unremarkable except as noted in HPI and below Constitutional: Constitutional: Denies body ache(s), Denies chills, Denies fatigue, Denies fever(s), Denies headache(s), Denies malaise and Denies weakness Eyes: Eyes: Denies blurry vision, Denies irritation and Denies loss of vision ENT: Denies otalgia, Denies headache(s), Denies nasal discharge, Denies sinus pain and Denies sore throat Cardiovascular: Cardiovascular: Denies chest pain, Denies irregular heart rhythm and Denies dyspnea Respiratory: Respiratory: Denies dyspnea Gastrointestinal: Gastrointestinal: Denies abdominal pain, Denies melena, Denies hematochezia, Denies diarrhea, Denies nausea and Denies vomiting Musculoskeletal: Musculoskeletal: Denies back pain, Denies myalgias and Reports arthralgias Integumentary/Breasts: Skin/Breast: Denies pruritus and Denies rash Neurologic: Denies headache(s), Denies loss of vision and Denies weakness Psychiatric: Psychiatric: Reports no additional psychiatric complaints Endocrine: Endocrine: Denies fatigue PMFSH Family History Family History Father Kidney disease Hypertension Mother High cholesterol Hypertension Grandparent Heart disease Emphysema lung Chronic obstructive pulmonary disease Grandparent Cerebrovascular accident Graves disease Grandparent Chronic obstructive pulmonary disease Social History Social History Social History: Caffeine- coffee daily Smoking status: Never smoker Alcohol intake: current Alcohol use details: Rarely Substance use: never Substance use type: does not use Do You Feel Safe in your Home?: Yes Lack of Transportation: No Lack of Food: Never True Current Housing: I Have Housing Concerned About Future Housing: No Difficulty Paying Gas/Electric Bills: No Difficulty Paying for Meds: No Currently Unemployed: No Education: Bachelor's Degree Difficulty w/ Childcare or Family Care: No Living arrangements: with family Spiritual care concerns: No Comments At time of signature, agree with nursing past medical, surgical, social and family history. There is no relevant family history pertinent to the presenting complaint. Exam Const: General: cooperative, healthy appearing, comfortable, no acute distress and well nourished Nutritional Appearance: well nourished Orientation/consciousness: patient oriented x3 Limitations: no limitations HENMT: Head: normal to inspection, normocephalic and atraumatic Ears: hearing grossly normal bilaterally and external ears normal Face/Nose/Sinus: Normal external nose present, normal facial exam and face symmetric Face and sinus: normal facial exam and face symmetric Mouth: Yes lip normal Eyes: General: appearance normal, both eyes and all related structures Alignment and Position: alignmen
[2023-08-19 18:03] VITALS: BP 127/79; PULSE 73; RESP 16; TEMP 36.4; O2SAT 100
== END 2023-08-19 18:39 | disposition home or self-care (01) ==
PROVIDERS: Emergency Provider Nurse Practitioner Family; PCP Family Medicine
DX: S90.122A Contusion of left lesser toe(s) without damage to nail, initial encounter (principal); W20.8XXA Other cause of strike by thrown, projected or falling object, initial encounter
CPT/HCPCS: 73660; 99213; G0463

== ENCOUNTER 2023-11-01 08:05 | Outpatient (CLI) | payer OTHER, SELFPAY ==
[2023-11-01 14:35] LABS: Alanine Aminotransferase 20 U/L (6-35); Albumin Level 4.7 g/dL (3.5-5.1); Alkaline Phosphatase 98 U/L (38-126); Anion Gap 10 mmol/L (4-12); Aspartate Amino Transferase 120 U/L (14-36); Bilirubin,Total 0.9 mg/dL (0.2-1.3); Blood Urea Nitrogen 17 mg/dL (7-17); Calcium 9.1 mg/dL (8.4-10.2); Carbon Dioxide 28 mmol/L (22-30); Chloride 99 mmol/L (98-107); Cholesterol 162 mg/dL (0-200); Estimated Glomerular Filt Rate > 60; Glucose 62 mg/dL (65-110); HDL Direct 43 mg/dL; Potassium 4.6 mmol/L (3.4-5.0); Sodium 137 mmol/L (137-145); Triglycerides 94 mg/dL (<150)
[2023-11-01 14:45] LABS: LDL Cholesterol Direct 87 mg/dL
== END 2023-11-01 08:06 | disposition home or self-care (01) ==
LOC: ANHGOSHLAB 08:06
PROVIDERS: PCP Family Medicine; Visit Provider Family Medicine
DX: Z13.228 Encounter for screening for other metabolic disorders (principal); Z13.29 Encounter for screening for other suspected endocrine disorder; Z13.220 Encounter for screening for lipoid disorders
CPT/HCPCS: 36415; 80053; 80061; 84443

== ENCOUNTER 2024-02-05 15:05 | Outpatient (CLI) | payer OTHER, SELFPAY ==
[2024-02-05 18:57] LABS: Basophils Percent Auto 0.3 % (0.2-1.2); Eosinophils Absolute Auto 0.2 K/mm3 (0-0.3); Eosinophils Percent Auto 1.4 % (0-4.4); Hematocrit 43.9 % (37.0-47.0); Hemoglobin 14.6 g/dL (12.0-15.0); Immature Granulocyte Absolute 0.03 K/mm3 (0.00-0.031); Immature Granulocyte Percent A 0.3 % (0-0.5); Lymphocytes Absolute Auto 3.81 K/mm3 (0.9-3.2); Mean Corpuscular HGB Conc 33.3 g/dl (32-36); Mean Corpuscular Hemoglobin 29.3 pg (26-34); Mean Platelet Volume 11.5 fl (7.4-10.4); Monocytes Absolute Auto 0.6 K/mm3 (0.1-0.6); Monocytes Percent Auto 5.9 % (2.6-8.5); Neutrophils Percent Auto 56.1 % (45.5-73.1); Platelet Count Result 320 k/mm3 (150-375); Red Blood Count 4.99 M/mm3 (4.2-5.4); Red Cell Distribution Width 12.8 % (11.5-14.5); White Blood Count 10.6 K/mm3 (4.5-10.0)
[2024-02-05 21:41] LABS: Alanine Aminotransferase 23 U/L (6-35); Albumin Level 4.8 g/dL (3.5-5.1); Alkaline Phosphatase 108 U/L (38-126); Anion Gap 8 mmol/L (4-12); Aspartate Amino Transferase 122 U/L (14-36); Blood Urea Nitrogen 12 mg/dL (7-17); Calcium 9.2 mg/dL (8.4-10.2); Carbon Dioxide 29 mmol/L (22-30); Chloride 101 mmol/L (98-107); Estimated Glomerular Filt Rate > 60; Glucose 83 mg/dL (65-110); Sodium 138 mmol/L (137-145)
[2024-02-05 22:33] LABS: Hepatitis B Surface Antigen Negative (Negative)
[2024-02-05 22:39] LABS: HAV RESULT Negative (Negative); Hepatitis B Core IgM Result Negative (Negative)
[2024-02-05 22:51] LABS: Hepatitis C Virus Antibody Negative (Negative)
[2024-02-05 23:03] LABS: Folic Acid > 20.0 ng/mL (2.76->20)
== END 2024-02-05 15:06 | disposition home or self-care (01) ==
LOC: ANHGOSHLAB 15:06
PROVIDERS: PCP Family Medicine; Visit Provider Family Medicine
DX: D50.9 Iron deficiency anemia, unspecified (principal); R53.83 Other fatigue; D64.9 Anemia, unspecified; E55.9 Vitamin D deficiency, unspecified; R74.8 Abnormal levels of other serum enzymes; Z13.228 Encounter for screening for other metabolic disorders
CPT/HCPCS: 36415; 80053; 80074; 82306; 82607; 82728; 82746; 85025

== ENCOUNTER 2024-02-13 07:43 | Outpatient (CLI) | payer OTHER, SELFPAY ==
--- NOTE | ~2024-02-13 | US_ITS ---
US abdomen limited INDICATION: Abnormal levels of serum enzymes. PROCEDURE: Realtime right upper abdominal ultrasound. COMPARISON: No prior studies for comparison. FINDINGS: The pancreas is normal without focal mass or pancreatic ductal dilation. Liver echotexture is normal without focal mass or intrahepatic biliary dilatation. There is normal directional flow i n the portal vein. The gallbladder is normal without stones, gallbladder wall thickening or pericholecystic fluid. Comm on bile duct measures 3 mm. No sonographic العلي's sign. Right renal echotexture is normal. Right k idney measures 10.8 cm. IMPRESSION: 1: Normal limited abdominal ultrasound. Reviewed, dictated and finalized at location [facility]. 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
== END 2024-02-13 07:44 | disposition home or self-care (01) ==
LOC: MICIMG 07:44
PROVIDERS: PCP Family Medicine; Visit Provider Family Medicine
DX: R74.8 Abnormal levels of other serum enzymes (principal)
CPT/HCPCS: 76705

== ENCOUNTER 2024-04-02 11:33 | Emergency (ER) | payer OTHER, SELFPAY ==
[2024-04-02 11:41] VITALS: BP 134/76; PULSE 73; RESP 18; TEMP 36.6; O2SAT 99
--- NOTE | 2024-04-02 12:17 | ED_ITS ---
HPI - URI/Sore Throat General Chief Complaint: Upper Respiratory Infection Stated Complaint: sinus congestion History of Present Illness HPI Narrative: patient is a 38-year-old female, past medical history significant for recurrent sinusitis, presents to [facility] with 1 month history of URI symptoms, including nasal congestion, purulent nasal discharge, ear fullness and a dry cough. She does report some mucus production in the morning when waking. She states that she has previously seen an ENT for recurrent sinusitis however that ENT left the area. She is using [id number] Flonase, Sudafed PE and a Neti pot without relief. She denies any additional associated symptoms or modifying factors. She is not . Related Data Allergies Allergy/AdvReac Type Severity Reaction Status Date / Time Sulfa (Sulfonamide AdvReac Vomiting Verified 04/02/24 11:56 Antibiotics) sulfabenzamide AdvReac Vomiting Verified 04/02/24 11:56 sulfamethoxazole (From AdvReac Vomiting Verified 04/02/24 11:56 Bactrim) trimethoprim (From Bactrim) AdvReac Vomiting Verified 04/02/24 11:56 Review of Systems Constitutional: Comments: she denies fever ENT: Comments: Refer HPI PMFSH Family History Family History Father Kidney disease Hypertension Mother High cholesterol Hypertension Grandparent Heart disease Emphysema lung Chronic obstructive pulmonary disease Grandparent Cerebrovascular accident Graves disease Grandparent Chronic obstructive pulmonary disease Social History Social History Social History: Caffeine- coffee daily Smoking status: Never smoker Alcohol intake: current Alcohol use details: Rarely Substance use: never Substance use type: does not use Do You Feel Safe in your Home?: Yes Lack of Transportation: No Lack of Food: Never True Current Housing: I Have Housing Concerned About Future Housing: No Difficulty Paying Gas/Electric Bills: No Difficulty Paying for Meds: No Currently Unemployed: No Education: Bachelor's Degree Difficulty w/ Childcare or Family Care: No Living arrangements: with family Spiritual care concerns: No Exam Const: General: healthy appearing Nutritional Appearance: well nourished Orientation/consciousness: patient oriented x3 Limitations: no limitations HENMT: Head: normal to inspection Ears: TM abnormal ( patient has a serous pattern bilaterally, bulging TMs with slight erythema) Face and sinus: normal facial exam and sinus tenderness ( diffuse frontal and maxillary sinuses are tender to palpation) Other: patient sounds nasally congested when speaking posterior pharyngeal cobblestoning parents noted, otherwise unremarkable pharyngeal exam Eyes: Conjunctivae: conjunctivae normal Pupils: Equal, round and reactive pupils present EOM: EOMs intact bilaterally Direct Ophthalmoscopy: no photophobia Neck: Neck: normal visual inspection Resp: Effort & Inspection: normal respiratory effort Auscultation: clear to auscultation bilaterally Cardio: Rate: regular rate Rhythm: regular rhythm Skin: General skin exam: normal color Rashes: no rashes Wounds: no wounds Neuro: General: patient oriented x3 Cranial nerves: Yes Nystagmus not present Speech: normal speech Course Course Emergency Course: patient has had symptoms for 4-5 weeks, concerning for post viral sinusitis, will treat with Augmentin short steroid course, follow-up with PCP in 3-5 days if symptoms not improving. Patient is agreeable plan Level of Care: Express Care Visit (88991) Vital Signs Vital signs: Vital Signs Temperature 36.6 C 04/02/24 11:41 Pulse Rate 73 04/02/24 11:41 Respiratory Rate 18 04/02/24 11:41 Blood Pressure 134/76 04/02/24 11:41 Pulse Oximetry 99 04/02/24 11:41 Oxygen Delivery Room Air 04/02/24 11:41 Temperature 36.6 C 04/02/24 11:41 Pulse Rate 73 04/02/24 11:41 Respiratory Rate 18 04/02/24 11:41 Blood Pressure 134/76 04/02/24 11:41 Pulse Oximetry 99 04/02/24 11:41 Oxygen Delivery Room Air 04/02/24 11:41 MDM - URI/Sore Throat MDM Narrative Medical decision making narrative: Augmentin, prednisone Differential Diagnosis Differential diagnosis: Likely upper respiratory infection, otitis media, sinusitis, viral infection, bronchitis and pharyngitis Discharge Plan Discharge Clinical Impression: Acute bacterial sinusitis Patient Disposition: Home, Self-Care Condition: Stable Instructions: Antibiotic Form, Sinusitis (ED) Additional Instructions: START AND COMPLETE ORAL STEROID AND ANTIBIOTICS PRESCRIBED. YOU MAY CONTINUE FLONASE AND ZYRTEC DIRECTED [id number]. FOLLOW-UP WITH YOUR PRIMARY DOCTOR IN 3-5 DAYS IF SYMPTOMS NOT IMPROVING Patient Language: Omani Prescriptions: New amoxicillin-pot clavulanate 875-125 mg tablet 1 tablet PO Q12H Qty: 20 0RF prednisone 20 mg tablet 40 mg PO DAILY 5 Days Qty: 10 0RF No Action citalopram 20 mg tablet 20 mg PO DAILY Qty: 90 1RF Follow-up/Referrals: PHYSICIAN,FOILING MACHINE OPERATOR [Primary Care Provider] - Stand Alone Forms: Work/School Release IP Time of Disposition: 12:21
--- OUTSIDE RECORDS SUMMARY | 2024-04-02 12:32 | XMS_ITS | Data Portability ---
Author Organization [facility] [place] Address [address] [place] [address] Care Team Providers Care Marketing Team Lead Name Role Phone GAGANDEEP CANSECO Primary Care Provider Assessment Encounter Date Assessment Date Assessment LastModified by Organization Details LastModified Time 12/29/2021 12/29/2021 Annual gynecological exam performed. Patient will come back in a year unless there are new symptoms. Not available 12/29/2021 14:02:53 01/10/2023 01/10/2023 Annual gynecological exam performed. Patient will come back in a year unless there are new symptoms. [email or web address] Not available 01/10/2023 16:57:30 Plan of Treatment Reminders Order Date Submit Date Provider Last Modified By Organization Details Last Modified Time Details Appointments None recorded. Lab CBC w/ auto diff [facility] (Lab), [address], [place], [address], 01:42:58 CMP, serum or plasma [facility] (Lab), [address], [place], [address], 01:42:59 lipid panel, blood [facility] (Lab), [address], [place], [address], 01:42:59 TSH, serum or plasma [facility] (Lab), [address] [facility], [place], [address], 01:43:00 vitamin D, 25-hydrox y, total, serum [facility] (Lab), [address] [facility], [place], [address], 01:43:00 Referral None recorded. Procedures None recorded. Surgeries None recorded. Imaging None recorded. Medication Orders None recorded. Patient TargetsNo targets recorded. Patient InstructionsNo instructions recorded. Reason for Referral None Reported. Results Created Date Observation Date Name Description Value Unit Range Abnormal Flag Note LastModifiedBy Organization Detail LastModifiedTime 08/11/19 22 08/10/2021 BHCG, QUANT ITATI VE B-HCG <0.2 mIU/m L This assay was perfo rmed using [employer] ratio n reage nts and test kits. Value s obtai elsy with other assay metho ds or kits canno t be used inter bynum eably . Refer ence Range s: Non-p regna nt, preme nopau ary women : 0.0-5 .3 mIU/m L Postm enopa usal women : 0.0-7 .0 mIU/m L Alisa l Pregn andree: Gesta mitch l Age bHCG Conc. - mIU/m L 3 Weeks 5.8 - 71.7 4 Weeks 9.5 - 750 5 Weeks 217-7 138 6 Weeks 158 - 31,79 5 7 Weeks 3,697 - 162,5 63 8 Weeks 32,06 5 - 149,5 71 9 Weeks 63,80 3 - 151,4 10 10 Weeks 46,50 9 - 186,9 77 12 Weeks 27,83 2 - 210,6 12 14 Weeks 13,95 0 - 62,53 0 15 Weeks 12,03 9 - 70,97 1 16 Weeks 9,040 - 56,45 1 17 Weeks 8,175 - 55,86 8 18 Weeks 8,099 - 58,17 6 Not Available [facility] (Lab) [address], [place], [address], 08/11/2021 03:14:42 08/12/19 22 08/11/2021 CT/GC AND TRICH OMONA S VAGIN CHON (RRNA ), URINE chlamydia trachomatis, PCR Negati ve negati ve Not Available [facility] (Lab) [address] [facility], [place], [address], 08/12/2021 13:10:16 08/12/19 22 08/11/2021 CT/GC AND TRICH OMONA S VAGIN CHON (RRNA ), URINE neisseria gonorrhoeae, PCR Negati ve negati ve Not Available [facility] (Lab) [address] [facility], [place], [address], 08/12/2021 13:10:16 08/12/19 22 08/11/2021 CT/GC AND TRICH OMONA S VAGIN CHON (RRNA ), URINE trichomonas vaginalis ribosomal RNA (rrna) Negati ve negati ve Not Available [facility] (Lab) [address] [facility], [place], [address], 08/12/2021 13:10:16 12/30/19 22 12/29/2021 CBC W/DIF F WBC 11.3 10'3/ uL 3.6-10 .2 high Not Available [facility] [address] [place] [address], [address], 12/30/2021 01:42:58 12/30/19 22 12/29/2021 CBC W/DIF F RBC 5.22 10'6/ uL (based on docume nted legal sex) 4.10-5 .30 Not Available [facility] [address] [place], [address], 12/30/2021 01:42:58 12/30/19 22 12/29/2021 CBC W/DIF F HGB 14.1 g/dL (based on docume nted legal sex) 11.9-1 5.8 Not Available [facility] [address] [place], [place] [address], [place], [address], 12/30/2021 01:42:58 12/30/1912/29/2021 CBC W/DIF F HCT 43.5 % (based on docume nted legal sex) 37.4-4 8.3 Not Available [facility] [place], [address], 12/30/2021 01:42:58 12/30/1912/29/2021 CBC W/DIF F MCV 83.3 fL 82.0-9 9.0 Not Available [facility] [place], [address], 12/30/2021 01:42:58 12/30/1912/29/2021 CBC W/DIF F MCH 27.0 pg 27.0-3 3.0 Not Available [facility] [address] [place], [place] [address], [place], [address], 12/30/2021 01:42:58 12/30/1912/29/2021 CBC W/DIF F MCHC 32.4 g/dL 32.0-3 6.0 Not Available [facility] [place], [address], 12/30/2021 01:42:58 12/30/1912/29/2021 CBC W/DIF F RDW 13.8 % 11.0-1 5.0 Not Available [facility] [address] [place], [place] [address], [place], [address], 12/30/2021 01:42:58 12/30/1912/29/2021 CBC W/DIF F plt 363 10'3/ uL 150-45 0 Not Available [facility] [place], [address], 12/30/2021 01:42:58 12/30/1912/29/2021 CBC W/DIF F MPV 11.9 fL 9.8-12 .7 Not Available [facility] [address] [place], [place] [address], [place], [address], 12/30/2021 01:42:58 12/30/1912/29/2021 CBC W/DIF F NRBC's 0.0 % 0 Not Available [facility] [address] [place] [address], [address], 12/30/2021 01:42:58 12/30/1912/29/2021 CBC W/DIF F absolute NRBCs 0.0 10'3/ uL 0 Not Available [facility] [address] [place] [address], [address], 12/30/2021 01:42:58 12/30/19 22 12/29/2021 CBC W/DIF F neutrophils 60.4 % 37.0-7 2.0 Not Available [facility] [address] [place] [address], [address], 12/30/2021 01:42:58 12/30/1912/29/2021 CBC W/DIF F lymphocytes 30.0 % 16.0-4 8.0 Not Available [facility] [address] [place] [address], [address], 12/30/2021 01:42:58 12/30/1912/29/2021 CBC W/DIF F monocytes 7.6 % 4.0-14 .0 Not Available [facility] [address] [place] [address], [address], 12/30/2021 01:42:58 12/30/1912/29/2021 CBC W/DIF F eosinophils 1.2 % 0.0-9. 0 Not Available [facility] [address] [place], [place] [address], [place], [address], 12/30/2021 01:42:58 12/30/19 22 12/29/2021 CBC W/DIF F basophils 0.3 % 0.0-2. 0 Not Available [facility] [address] [place] [address], [address], 12/30/2021 01:42:58 12/30/1912/29/2021 CBC W/DIF F immature granulocytes 0.5 % no define d refere nce range Not Available [facility] [address] [place] [address], [address], 12/30/2021 01:42:58 12/30/1912/29/2021 CBC W/DIF F absolute neutrophils 6.8 10'3/ uL 1.1-6. 0 high Not Available [facility] [address] [place] [address], [address], 12/30/2021 01:42:58 12/30/19 22 12/29/2021 CBC W/DIF F absolute lymphocytes 3.4 10'3/ uL 0.7-3. 4 Not Available [facility] [address] [place] [address], [address], 12/30/2021 01:42:58 12/30/1912/29/2021 CBC W/DIF F absolute monocytes 0.9 10'3/ uL 0.3-1. 0 Not Available [facility] [address] [place] [address], [address], 12/30/2021 01:42:58 12/30/19 22 12/29/2021 CBC W/DIF F absolute eosinophils 0.1 10'3/ uL 0.0-0. 6 Not Available [facility] [address] [place], [address], 12/30/2021 01:42:58 12/30/1912/29/2021 CBC W/DIF F absolute basophils 0.0 10'3/ uL 0.0-0. 1 Not Available [facility] [address] [place] [address], [address], 12/30/2021 01:42:58 12/30/19 22 12/29/2021 CBC W/DIF F absolute immature granulocytes 0.1 10'3/ uL 0.00-0 .10 12/30 12:11 AM: P indic ates parti al resul ts on a panel have been relea sed. Addit ional resul ts will follo w. 12/30 12:11 AM: This resul t has been final verif ied. No addit ional or bynum ed resul ts are expec salma. Not Available [facility] [address] [place] [address], [address], 12/30/2021 01:42:58 12/30/1912/29/2021 LIPID PANEL ,AMA (LDL- CALC) total cholesterol 180 mg/dL 0-199 Not Available [facility] [address] [place] [address], [address], 12/30/2021 01:42:59 12/30/1912/29/2021 LIPID PANEL ,AMA (LDL- CALC) triglyceride s 84 mg/dL 0.00-1 50.00 NCEP Refer ence Value s for Trigl yceri bart: Alisa l: <150 mg/dL Borde rline High: 150 - 199 mg/dL High: 200 - 499 mg/dL Very High: >/= 500 mg/dL Not Available [facility] [address] [place], [address], 12/30/2021 01:42:59 12/30/1912/29/2021 LIPID PANEL ,AMA (LDL- CALC) HDL cholesterol 58 mg/dL >40 Not Available [address], [address], 12/30/2021 01:42:59 12/30/19 22 12/29/2021 LIPID PANEL ,AMA (LDL- CALC) LDL cholesterol 105 mg/dL 0-99 high Cutof f value s recom ewa d by the Heri nal Tari stero l Educa tion Progr am: DEANNA ABLE: Tari stero l <200 mg/dL LDL <100 mg/dL BORDE RLINE : Tari stero l 200-2 39 mg/dL LDL 101-1 59 mg/dL HIGHE R RISK: Tari stero l >240 mg/dL LDL >160 mg/dL , HDL <40 mg/dL Not Available [address], [address], 12/30/2021 01:42:59 12/30/1912/29/2021 LIPID PANEL ,AMA (LDL- CALC) non-HDL cholesterol 122 mg/dL no refere nce range A reaso nable goal for non-H DL tari stero l is one that is 30 mg/dL highe r than the LDL tari stero l goal. Not Available [facility] [address], [address], 12/30/2021 01:42:59 12/30/1912/29/2021 LIPID PANEL ,AMA (LDL- CALC) chol/HDL ratio 3.1 . 0.0-5. 0 Not Available [address], [address], 12/30/2021 01:42:59 12/30/19 22 12/29/2021 CMP(C OMPRE HENSI VE METAB OLIC PANEL ) sodium 137 mmol/ L 133-14 6 Not Available [facility] [address] [place] [address] [place], [address], 12/30/2021 01:42:59 12/30/1912/29/2021 CMP(C OMPRE HENSI VE METAB OLIC PANEL ) potassium 4.1 mmol/ L 3.5-5. 1 Not Available [facility] [place], [address], 12/30/2021 01:42:59 12/30/1912/29/2021 CMP(C OMPRE HENSI VE METAB OLIC PANEL ) chloride 102 mmol/ L 98-107 Not Available [facility] [place], [address], 12/30/2021 01:42:59 12/30/1912/29/2021 CMP(C OMPRE HENSI VE METAB OLIC PANEL ) carbon dioxide 24 mmol/ L 21-31 Not Available [facility] [place], [address], 12/30/2021 01:42:59 12/30/1912/29/2021 CMP(C OMPRE HENSI VE METAB OLIC PANEL ) anion gap 11 mmol/ L 4-13 Not Available [facility] [address] [place], [place] [address], [place], [address], 12/30/2021 01:42:59 12/30/1912/29/2021 CMP(C OMPRE HENSI VE METAB OLIC PANEL ) blood urea nitrogen 19 mg/dL 7-25 Not Available [facility] [place], [address], 12/30/2021 01:42:59 12/30/19 22 12/29/2021 CMP(C OMPRE HENSI VE METAB OLIC PANEL ) creatinine 0.63 mg/dL 0.60-1 .30 Not Available [facility] [address] [place] [place] [address] [place], [address], 12/30/2021 01:42:59 12/30/1912/29/2021 CMP(C OMPRE HENSI VE METAB OLIC PANEL ) egfrcr (CKD-epi 2020) >90 mL/mi n/1.7 3_m2 >=60 Not Available [facility] [address] [place], [place] [address], [place], [address], 12/30/2021 01:42:59 12/30/1912/29/2021 CMP(C OMPRE HENSI VE METAB OLIC PANEL ) calcium 9.5 mg/dL 8.3-10 .5 Not Available [facility] [address] [place], [place] [address] [place], [address], 12/30/2021 01:42:59 12/30/1912/29/2021 CMP(C OMPRE HENSI VE METAB OLIC PANEL ) glucose 77 mg/dL 70-100 Not Available [facility] [address] [place], [place] [address], [place], [address], 12/30/2021 01:42:59 12/30/1912/29/2021 CMP(C OMPRE HENSI VE METAB OLIC PANEL ) protein, total 7.5 g/dL 6.4-8. 3 Not Available [facility] [address] [place], [place] [address], [place], [address], 12/30/2021 01:42:59 12/30/1912/29/2021 CMP(C OMPRE HENSI VE METAB OLIC PANEL ) albumin 4.6 g/dL 3.5-5. 0 Not Available [facility] [address] [place], [place] [address], [place], [address], 12/30/2021 01:42:59 12/30/1912/29/2021 CMP(C OMPRE HENSI VE METAB OLIC PANEL ) ALT 11 units /L 9-43 Not Available [facility] [address] [place] [address], [address], 12/30/2021 01:42:59 12/30/19 22 12/29/2021 CMP(C OMPRE HENSI VE METAB OLIC PANEL ) alkaline phosphatase 123 units /L 34-104 high Not Available [facility] [address] [place] [address], [address], 12/30/2021 01:42:59 12/30/1912/29/2021 CMP(C OMPRE HENSI VE METAB OLIC PANEL ) AST 87 units /L 13-39 high Not Available [facility] [address] [place] [address], [address], 12/30/2021 01:42:59 12/30/1912/29/2021 CMP(C OMPRE HENSI VE METAB OLIC PANEL ) bilirubin, total 1.0 mg/dL 0.2-1. 2 Not Available [facility] [address] [place] [address], [address], 12/30/2021 01:42:59 12/30/19 22 12/29/2021 TSH, REFLE X FREE T4 TSH 1.09 uIU/m L 0.30-5 .33 Not Available [facility] [address] [place] [address], [address], 12/30/2021 01:43:00 12/30/1912/29/2021 VITAM IN D, 25-OH (TOTA L D2/D3 ) vitamin D, 25-hydroxy, total 25.9 NG/mL 30.0-1 00.0 low Sugge stive of Defic iency : <20 ng/mL Sugge stive of Insuf ficie ncy: 20-29 ng/mL Sugge stive of Suffi cienc y: 30-10 0 ng/mL Sugge stive of Toxic ity: >150 ng/mL Not Available [facility] [address], [place], [address], 12/30/2021 01:43:00 12/30/19 22 12/29/2021 IMAGE GUIDE D PAP AND HPV REGAR DLESS image guided Pap, HPV regardless of Pap result SEE RESULT S BELOW CASE REPOR T: Cytol ogy Gynec ologi dorothea Repor t Case: [id number] Autho maria t kyle Provi jamar: Dontae London MD Colle cted: 12/29 1538 Order ing Locat ion: [place] [facility] Recei dave: 12/30 0425 First Scree n: Sherrie Fraire , CT Rescr een: Dar malhotra, Sukh jackson, CT Speci men: Scree walter Pap - Image d, Cervi x STATE MENT OF ADEQU ACY: Satis facto ry for evalu ation Trans forma tion zone compo nent prese nt FINAL DIAGN OSIS: Negat any for Intra epith elial Lesio n or Jennifer garcia (NIL) . Elect ros guerra gerri d by Sukh Butt am, CT on 2021 at 12:22 PM ----- ----- ----- ----- ----- ----- ----- ----- ----- ----- ----- ----- ----- ----- ----- ----- ----- ---- HPV RESUL TS: HPV mRNA E6/E7 : No HPV mRNA Detec salma NOTE: This high risk HPV mRNA assay detec ts fourt een high- risk HPV types (16, 18, 31, 33, 35, 39, 45, 51, 52, 56, 58, 59, 66, 68) witho ut diffe renti ation . COMME NT: Note: This speci men was revie wed by a Cytot echno logis t and/o r Patho logis t (as indic ated in this repor t) after evalu ation using the Thinp rep Imagi ng Syste m. CLINI DOROTHEA INFOR MATIO N: Menst rual Statu s: LMP (if appli cable ): Clini dorothea Histo ry/Pr eviou s Pap: Type of Neopl roseann (if appli cable ): Signi fican t Clini dorothea Findi ngs: Other Histo ry: Hormo mona (if appli cable ): PAP EDUCA MITCH L NOTE: The Pap Test is a scree walter test with an inher ent false negat any rate. Liqui d-bas ed sampl ing may decre ase, but will not elimi narda, false negat any resul ts. A negat any resul t does not precl ude the prese nce and/o r devel opmen t of disea se, since the prese nce of abnor mal cells in the sampl e depen ds on the locat ion of the lesio n and sampl ing techn ique. Lucia nued regul ar scree walter is the best metho d of cance r preve ntion . If repor salma cytol ogic findi ng do not corre late with physi dorothea and/o r histo rical findi ngs, furth er inves tigat ion is recom ewa d, as clini siri rojas nted. Not Available [facility] (Lab) [address] [facility], [place], [address], 01/04/2022 13:25:17 01/11/20 23 01/10/2023 IMAGE GUIDE D PAP AND HPV REGAR DLESS image guided Pap, HPV regardless of Pap result SEE RESULT S BELOW CASE REPOR T: Cytol ogy Gynec ologi dorothea Repor t Case: [id number] Autho maria t wright Provi jamar: Freida Monge NP Colle cted: 01/10 1707 Order ing Locat ion: [place] Path[facility] [place] Recei dave: 01/11 0654 First Scree n: Wagne r, Delisa ica Speci men: Scree walter Pap - Image d, Cervi x STATE MENT OF ADEQU ACY: Satis facto ry for evalu ation Trans forma tion zone compo nent prese nt FINAL DIAGN OSIS: Negat any for Intra epith elial Lesio n or Jennifer garcia (NIL) . Elect ros talley d by Delisa Mclean ica on 01/14 at 12:12 PM ----- ----- ----- ----- ----- ----- ----- ----- ----- ----- ----- ----- ----- ----- ----- ----- ----- ---- HPV RESUL TS: HPV mRNA E6/E7 : No HPV mRNA Detec salma NOTE: This high risk HPV mRNA assay detec ts fourt een high- risk HPV types (16, 18, 31, 33, 35, 39, 45, 51, 52, 56, 58, 59, 66, 68) witho ut diffe renti ation . COMME NT: This speci men was revie wed by a Cytot echno logis t and/o r Patho logis t (as indic ated in this repor t) after evalu ation using the Thinp rep Imagi ng Syste m. CLINI DOROTHEA INFOR MATIO N: Menst rual Statu s: LMP (if appli cable ): Clini dorothea Histo ry/Pr eviou s Pap: Type of Neopl roseann (if appli cable ): Signi fican t Clini dorothea Findi ngs: Other Histo ry: Hormo mona (if appli cable ): PAP EDUCA MITCH L NOTE: The Pap Test is a scree walter test with an inher ent false negat any rate. Liqui d-bas ed sampl ing may decre ase, but will not elimi narda, false negat any resul ts. A negat any resul t does not precl ude the prese nce and/o r devel opmen t of disea se, since the prese nce of abnor mal cells in the sampl e depen ds on the locat ion of the lesio n and sampl ing techn ique. Lucia nued regul ar scree walter is the best metho d of cance r preve ntion . If repor salma cytol ogic findi ng do not corre late with physi dorothea and/o r histo rical findi ngs, ena reed ion is recom ewa d, as clini siri rojas nted. Not Available [facility] (Lab) [address], [place], [address], 01/14/2023 13:15:25 Result Notes None recorded. Problems Name Problem SNOMED Code Status Onset Date Resolution Date Notes Provider Name and Address Organization Details Recorded Time 07752526 Completed 202007/21/2021 Rakel Acevedo [facility] 2 11:54:33 Anemia [id number] Completed slowfe daily 1 tab Rakel Acevedo [facility] 2 11:54:28 Problem Notes None recorded. Procedures Surgical History Date Name Laterality Status Provider Name and Address Organization Details Recorded Time 2 Date of Last Pap Smear completed [facility] 01/03/2023 16:51:59 2 IUD Insertion completed [facility] 08/11/2021 11:31:46 1 extraction of wisdom tooth completed Dayanara Alvarado [facility] 02/22/2021 11:34:14 9 tonsilectomy/a denoids completed Dayanara Alvarado [facility] 02/22/2021 11:34:27 tonsilectomy/a denoids completed Anju Chester [facility] 01/10/2023 17:00:06 Imaging Results None recorded. Procedure Notes None recorded. Medical Equipment None Reported. Allergies Allergen ID Allergen Name Allergen Category Reaction Reaction Severity Criticality Documentation Date Start Date Code Code System Note Provider Name and Address Organization Details Recorded Time 06411 Substance with sulfonami de structure and antibacte rial mechanism of action (substanc e) medicatio n Not available Not available Not available 12/14/2020 [address] [facility] 12:52:00 67472 Bactrim medicatio n nausea severe Not available 12/14/2020 [address] [facility] 12:52:09 10441 sulfabenz amide Not available nausea moderate Not available 12/28/[address] [facility] 17:45:06 Medications Name Sig Start Date Stop Date Status Note LastModified by Organization Details LastModified Time fc2 female condom misc 12/14 completed Not Available Not Available Not Available Mirena 21 mcg/24 hr (up to 8 years) 52 mg intrauterin e device Take by intrauter ine route. active Not Available Not Available No t Available ofloxacin 0.3 % eye drops 01/10 completed Not Available Not Available Not Available citalopram 10 mg tablet 01/10 completed Not Available Not Available Not Available prednisone 5 mg tablet active Not Available Not Available Not Available amoxicillin 875 mg tablet 01/10 completed Not Available Not Available Not Available citalopram 20 mg tablet TAKE 1 TABLET BY MOUTH DAILY active Not Available Not Available No t Available oseltamivir 75 mg capsule 01/10 completed Not Available Not Available Not Available metoclopram edy 10 mg tablet TAKE 1 TABLET BY MOUTH EVERY 6 HOURS NEEDED FOR NAUSEA OR VOMITING 01/25 completed Not Available Not Available Not Available iron 12/29 completed Not Available Not Available Not Available 12/29 completed Not Available Not Available Not Available levonorgest rel 1.5 mg tablet 12/14 completed Not Available Not Available Not Available Gentle Iron (iron sulfate) 12/29 completed Not Available Not Available Not Available Vienva 0.1 mg-20 mcg tablet 12/14 completed Not Available Not Available Not Available BinaxNOW COVID-19 Ag Self Test kit TEST DIRECTED TODAY 01/10 completed Not Available Not Available Not Available Vitals Date Recorded Body height Body mass index (BMI) Body weight Systolic blood pressure Diastolic blood pressure Provider Name and Address Organization Details Last Updated DateTime 07/25/2021 157.48 cm 29.6 kg/m2 66534.96 g 121 mm[Hg] 85 mm[Hg] [facility] 2 10:51:30 Date Recorded Body height Body mass index (BMI) Body weight Systolic blood pressure Diastolic blood pressure Provider Name and Address Organization Details Last Updated DateTime 08/11/2021 157.48 cm 29.8 kg/m2 06043.56 g 132 mm[Hg] 86 mm[Hg] [facility] 2 11:13:08 Date Recorded Body height Body mass index (BMI) Body weight Systolic blood pressure Diastolic blood pressure Provider Name and Address Organization Details Last Updated DateTime 09/11/2021 157.48 cm 29.6 kg/m2 10894.96 g 138 mm[Hg] 73 mm[Hg] [facility] 2 17:29:54 Date Recorded Body height Body mass index (BMI) Body weight Systolic blood pressure Diastolic blood pressure Provider Name and Address Organization Details Last Updated DateTime 12/29/2021 157.48 cm 29.3 kg/m2 87913.78 g 130 mm[Hg] 89 mm[Hg] [facility] 2 14:15:55 Date Recorded Body height Body mass index (BMI) Body weight Systolic blood pressure Diastolic blood pressure Provider Name and Address Organization Details Last Updated DateTime 01/10/2023 157.48 cm 29.4 kg/m2 63720.37 g 132 mm[Hg] 85 mm[Hg] Anju Chester [facility] 3 16:59:18 Social History Question Answer Notes LastModified by Organizat ion Details LastModified Time Tobacco Smoking Status Never Smoker Elbert hernandez [facility] 09/11/2021 17:06:50 Do You Have An Advance Directive? No Information n ot available 12/28/2020 What Is Your Level Of Alcohol Consumption? None Information not available 12/28/2020 If You Are , What Was Your Level Of Alcohol Consumption Prior To ? None [email or web address] Information not available 09/11/2021 How Many Years Have You Consumed Alcohol? 12 Information not available 12/28/2020 Are You Blind Or Do You Have Difficulty Seeing? No Information n ot available 12/28/2020 What Is Your Level Of Caffeine Consumption? Heavy Information not available 12/28/2020 How Much Tobacco Do You Chew? None Information not available 12/28/2020 In The 14 Days Before Symptom Onset, Have You Had Close Contact With A Laboratory-confirm ed COVID-19 While That Case Was Ill? No Information n ot available 12/28/2020 In The 14 Days Before Symptom Onset, Have You Had Close Contact With A Person Who Is Under Investigation For COVID-19 While That Person Was Ill? No Information not available 12/28/2020 Have You Been To An Area Known To Be High Risk For COVID-19? Yes Information not available 12/28/2020 Are You Deaf Or Do You Have Serious Difficulty Hearing? No Information not available 12/28/2020 What Type Of Diet Are You Following? REGULAR Information n ot available 12/28/2020 What Is The Highest Grade Or Level Of School You Have Completed Or The Highest Degree You Have Received? 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 Yes Information not available 12/28/2020 Do You Use Protection During Sex? Usually Information not available 12/28/2020 Do You Use Your Seat Belt Or Car Seat Routinely? Yes Information not available 12/28/2020 Do You Have Smoke And Carbon Monoxide Detectors In Your Home? Yes Information not available 12/28/2020 How Much Tobacco Do You Smoke? No Information not available 12/28/2020 Do You Feel Stressed (tense, Restless, Nervous, Or Anxious, Or Unable To Sleep At Night)? [id number] Information not available 12/28/2020 Do You Use Any Illicit Or Recreational Drugs? No Information not available 12/28/2020 Do You Use Sunscreen Routinely? Yes Information not available 12/28/2020 Has Tobacco Cessation Counseling Been Provided? No [email or web address] Information not available 09/11/2021 Have You Used IV Drugs? No Information not available 12/28/2020 Do You Or Have You Ever Used Any Other Forms Of Tobacco Or Nicotine? No [email or web address] Information not available 09/11/2021 Sex: Unknown Functional Status Question Answer Note LastModified by Organizat ion Details LastModified Time Do you have difficulty walking or climbing stairs? No [email or web address] Information not available 09/11/2021 Are you able to walk? YESWOREST Information not available 12/28/2020 Are you able to care for yourself? Yes Information not available 09/11/2021 Do you have difficulty dressing or bathing? No [email or web address] Information not available 09/11/2021 What is your exercise level? Moderate Information not available 12/28/2020 Mental Status None recorded. Family History Relationship Description Onset Age of this Age Resolved Age Notes LastModified by Organization Details LastModified Time Mother Hypertensive disorder [email or web address] Not available 2020 10:36:57 Father Hypertensive disorder [email or web address] Not available 2020 10:36:57 Maternal Grandmother Hypertensive disorder [email or web address] Not available 2020 10:36:57 Maternal Grandmother Malignant tumor of lung Not available 2020 17:45:09 Maternal Grandmother Heart disease Not available 2020 17:45:09 Maternal Grandmother Disorder of lung Not available 2020 17:45:09 Paternal Grandmother Disorder of thyroid gland Not available 2020 17:45:10 Medical History Condition Response Allergies (Food, seasonal, environmental ) Y Other N Blood Transfusion N Drug/Latex Allergies/Reactions Y Breast Cancer N Dermatologic Disorders N Lung Disease N Defects or Inherited Disease N Breast Problem N Gestational Diabetes N Hematologic disorders N Anesthesia Complications N History of STI N Deep Vein Thrombosis N Polycystic ovary syndrome N Anxiety Disorder Y Autoimmune disease N Arthritis N Infertility N Polyps N Acid Reflux (GERD) N History of abnormal pap N Cancer N Stroke N Varicosities N Neurologic/Epilepsy N Endometriosis N High Cholesterol N Headaches N Fibromyalgia N Kidney Disease N Heart Problems N Kidney or Bladder Problems N Thyroid Problems N GI Problems N Eating Disorder N Anemia N Art (IVF or FET) N Psychiatric Illness N Ovarian Cancer N Diabetes N Pulmonary (TB, Asthma) N Hepatitis/Liver Disease N No Past Medical History N Eczema N Urinary Tract Infection N Abuse/Domestic Violence N Asthma N Trauma/Violence N Depression/ depression Y Heart Disease N Pre-Eclampsia N Hypertension N Osteoporosis N Thrombophilias N Gynecological History Statement/Question Response Abnormal Pap N Date of LMP 12/22/2022 On BCP's at Conception? N N Was last menstrual period normal Y STIs/STDs N HPV Vaccine Y Duration of Flow (days) 5 Current Control Method IUD Frequency of Cycle (Q days) 28 Sexually Active? Y Age of first menstrual cycle 16 Date of Last Pap Smear 12/29/2021 Sexual Problems? N Desired Control Method LMP Definite N Obstetrics History GPAL:G 1 P 1 0 0 1 Type Value Full Term 1 Living 1 Total 1 Past Encounters Encounter ID Performer Location Encounter Start Date Encounter Closed Date Diagnosis/Indication Diagnosis SNOMED-CT Code Diagnosis ICD10 Code Diagnosis Note [id number] Ashley Portillo [facility] [address] [address] 12/15/2020 10:28:27 12/15/2020 11:31:00 Gynecologic examination 54680961 Z01.419 Z11.51 test positive 345874407 Z32.01 Risk factors addressed: Tobacco Cessation, Safe Sexual Practices, environmen soren, work hazards, travel restrictio ns, seat belt use.Eat a health well balanced diet, avoid alcohol, tobacco, and street drugs.Enga ge in daily low impact exercise, avoid temperatur e extremes, and cat, rodent, and bird feces.Avoi d travel to areas where zika virus is a concern.Of fered cf/sma/nip tLucila wright all 3. Handouts given and discussed with patient.Ch ildbirth classes recommende d.New OB sheet given.If previous , counseling . Pt has already had covid vaccine. Encouraged flu vaccine.Pt verbalizes that she understand s the importance of above instructio ns.All questions were answered.P atient reminded to have annual well woman examinatio n and address [facility] . [id number] Yamileth Gongora [facility] [address],[place] [address] 12/15/2020 12:27:50 12/15/2020 12:52:32 [id number] [facility] [address] [place] [address] 12/28/2020 16:56:07 12/28/2020 17:44:50 Uterine size for dates discrepancy [id number] O26.841 Z3A.12 [id number] Caesar London MD [facility] [address],[place] [address] 12/28/2020 16:59:53 12/29/2020 15:30:56 Routine care 496789373 Z34.01 [id number] Sheba Groves [facility] [address] [place] [address] 01/25/2021 17:56:16 01/30/2021 13:38:53 Routine care [id number] Z34.92 [id number] [facility] [address] [place] [address] 01/25/2021 18:49:00 01/26/2021 03:50:12 [id number] [facility] [address] [place] [address] 02/22/2021 11:17:30 02/22/2021 13:17:08 screening for malformation 892658196 Z36.3 [id number] Sheba Groves CNM [facility] [address] [place] [address] 02/22/2021 11:18:34 02/22/2021 11:54:45 Routine care [id number] Z34.92 [id number] Yamileth Gongora [facility] [address],[place] [address] 03/21/2021 15:29:42 03/21/2021 16:20:16 screening [id number] Z36.2 [id number] Kirsten Bañuelos MD [facility] [address],[place] [address] 03/21/2021 15:30:27 03/22/2021 16:08:35 Routine care [id number] Z34.02 [id number] Kirsten Bañuelos MD [facility] [address],[place] [address] 04/17/2021 16:25:40 04/17/2021 16:53:38 Routine care 037725445 Z34.02 [id number] Ashley Portillo [facility] [address],[place] [address] 05/01/2021 16:55:37 05/01/2021 18:22:24 Routine care 594194317 Z34.93 [id number] Sheba Groves [facility] [address],[place] [address] 05/17/2021 16:20:57 05/17/2021 17:39:19 Routine care [id number] Z34.92 [id number] Caesar London MD [facility] [address],[place] [address] 06/01/2021 11:57:43 06/01/2021 12:43:55 Routine care [id number] Z34.01 [id number] Yamileth Gongora [facility] [address] [place] [address] 06/15/2021 16:58:57 06/15/2021 17:35:14 Uterine size for dates discrepancy 973356280 O26.841 Z3A.36 [id number] Caesar London MD [facility] [address],[place] [address] 06/15/2021 16:59:29 06/15/2021 18:10:00 Routine care 140745455 Z34.01 [id number] Caesar London MD [facility] [address],[place] [address] 06/22/2021 16:41:26 06/22/2021 20:03:46 Routine care [id number] Z34.01 [id number] Caesar London MD [facility] [address],[place] [address] 06/23/2021 14:42:53 06/23/2021 15:37:07 -induced hypertension 73193693 O13.9 [id number] Sabra Doran [facility] [address],[place] [address] 06/23/2021 15:59:05 06/23/2021 17:01:20 -induced hypertension 17316940 O13.9 [id number] Caesar London MD [facility] [address],[place] [address] 07/05/2021 17:13:20 07/05/2021 18:23:01 -induced hypertension 85562296 O13.9 this patient is a 35-year-ol d female presents for follow-up. She had gestationa l hypertensi on was delivered early. She presents for blood pressure check. Her blood pressures more slightly elevated. We agreed not to treat. She is given preeclamps ia precaution s. We talked about preeclamps ia in its progressio n. Talked about gestationa l hypertensi on in detail. We spent over 15 minutes face-to-fa ce. She will follow-up in 3 weeks. She is going to monitor her blood pressure at home. [id number] Caesar London MD [facility] [address],[place] [address] 07/25/2021 10:33:06 07/25/2021 11:54:48 care 505615320 Z39.2 this patient is a 35-year-ol d female presents for follow-up. She has not intercours e. She no trouble with bleeding. She is breastfeed ing. Her mood is good. Her baby is well. We have agreed to insert Mirena. We had lengthy discussion on contracept ion. [id number] Caesar London MD [facility] [address],[place] [address] 08/11/2021 11:00:15 08/11/2021 11:40:19 Contraception care management 315048070 Z30.9 IUD inserted without complicati ons. [id number] Caesar London MD [facility] [address],[place] [address] 09/11/2021 17:05:49 09/12/2021 14:35:43 Contraception care management [id number] Z30.9 this patient is a 35-year-ol d female presents for IUD check. She is reporting intermitte nt bleeding. It is moderate. She denies any pain. Speculum exam was performed. The IUD appears well placed within the uterus. She was to continue to eat with the IUD. We agreed to talk in 4 weeks for bleeding persisted. [id number] Caesar London MD [facility] [address],[place] [address] 12/29/2021 14:00:32 12/29/2021 15:32:40 Gynecologic examination 80068718 Z01.419 Annual gynecologi dorohtea exam performed. Patient will come back in a year unless there are new symptoms. Suggest Calcium with Vitamin D if not eating in diet. Patient advised to get annual flu shot. Recommend yearly physicals and preform monthly breast exams. Genetic testing is available for patients with family history of cancer. Engage in safe sexual practices, use condoms. Encouraged to have daily exercise. Avoid tobacco and illicit drugs, moderation of alcohol. If BMI greater than 25 dietary consult advised. If you have any questions please call or email.\ Cholestero l - today Pap - today [id number] JOEY Ramos [facility] [address],[place] [address] 01/10/2023 16:47:21 01/11/2023 10:09:24 Gynecologic examination [id number] Z01.419 Z11.51 [facility] - Mirena IUD, inserted 08/11/21hap py with IUD and would like to continue with this method of BCpap updatedSTI testing declinedUT D with PCP for routine labsRTC in 1 yr or sooner if needed Take Calcium with Vitamin D daily if not receiving in daily diet. It is strongly advised to have an annual flu shot and up can obtain at most pharmacies . If you have not had a TDap shot in the last 10 years you should obtain one as well. Discussed with patient & provided with informatio n regarding Gardisil vaccine to prevent the 4 strains for HPV that cause cervical cancer if under age 26.Encoura ge safe sexual practices, to use condoms and limit partners if not already in a monogamous relationsh ip.Do monthly self breast exams. Engage in daily exercise of low impact aerobic exercise 45-60 minutes 4-5 times weekly. Avoid tobacco and illicit drugs as well as using moderation with alcohol intake less than 1-2 8 oz beverages daily. This lifestyle behavior pattern will lead to less health conditions and longer life span. If BMI greater than 25 weight watchers or dietary consult advised. Patient received above instructio ns, and questions have been answered. If you have any questions please call or respond to this email. Patient was made aware of the patient portal and may obtain a paper copy of today's plan if desired. Health Concerns Section Related Observation LastModified by Organization Detai ls LastModified Time None Recorded Concern Status LastModified by Organization Details LastModified Time None Recorded Advance Directives Directive N: Payers Encounter Date Sequence Insurance Name Policy Number Policy Ramachandran Covered Member ID Ramachandran Member ID Guarantor Name 07/25/2021 1 [employer] [id number] Leila Schramek [id number] Leila Schramek 08/11/2021 1 [employer] [id number] Leila Schramek [id number] Leila Schramek 09/11/2021 1 [employer]MR [id number] Leila Schramek [id number] Leila Schramek 12/29/2021 1 UMR [id number] Leila Schramek [id number] Leila Schramek 01/10/2023 1 UMR [id number] Leila Schramek [id number] Leila Schramek Notes Date Note Type Note Provider Name and Address Organization Details Recorded Time 07/25/2021 text/html this patient is a 35-year-old female presents for follow-up. She has not intercourse. She no trouble with bleeding. She is . Her mood is good. Her baby is well. We have agreed to insert Mirena. We had lengthy discussion on contraception. Caesar oLndon MD [address], [place], [address], [facility] 07/25/2021 11:49:54 08/11/2021 text/html Patient presents for IUD insertion. Caesar London MD [address], [place], [address], [facility] 08/11/2021 11:34:09 09/11/2021 text/html this patient is a 35-year-old female presents for IUD check. She is reporting intermittent bleeding. It is moderate. She denies any pain. Speculum exam was performed. The IUD appears well placed within the uterus. She was to continue to eat with the IUD. We agreed to talk in 4 weeks for bleeding persisted. Caesar London MD [address], [place], [address], [facility] 09/11/2021 19:52:47 12/29/2021 text/html Annual GYNReport ed bypatient.History: no gynecologic complaints Menstrual cycle:Normal menses Urinary symptoms:No hematuria; No incontinence Vulva:No genital lesion Vagina:Normal vaginal discharge Breast:No breast pain; No breast lump; No nipple discharge Current Contraception:Sati sfied with current contraception; Intrauterine device (iud) Sexual complaints:No sexual complaints; No pain during intercourse Menopausal Symptoms:No menopausal symptoms; Normal vaginal lubrication Psychological symptoms:No depression;Anxiety Caesar London MD [address], [place], [address], [facility] 12/29/2021 15:01:32 01/10/2023 text/html Annual GYNReport ed bypatient.Menstrua l cycle:Normal menses Urinary symptoms:No hematuria; No incontinence Vulva:No genital lesion Vagina:Normal vaginal discharge Breast:No breast pain; No breast lump; No nipple discharge Current Contraception:Sati sfied with current contraception; Intrauterine device (iud); mirena IUD, inserted 08/12/2019 Sexual complaints:No sexual complaints; No pain during intercourse; Normal libido Menopausal Symptoms:No menopausal symptoms; Normal vaginal lubrication Psychological symptoms:No depression; No anxiety; No PMDD Preventive measures:Encourage self breast examination; Encourage regular exercise; Encourage no tobacco use; Encourage regular mammograms starting age 40 JOEY Ramos [address], [place], [address], [place] [facility] 01/11/2023 08:53:56 OBGyn Episode Ob Episode Information Episode Created Date Number of Fetuses Patient Bloodtype Patient rh Status Prepregnancy Weight lbs Domestic Partner Domestic Partner Phone Father Name Remittance Clerk Status 12/29/19 21 1 O Positive 162 CLOSED Fetus Data First Name Last Name Admitted to NICU Weight (g) Sex Living Outcome Pediatric Complications Fetus ID Race Codes Race Delivery Type 3005.04 7 F true Full Term meconium [id number] Vaginal Delivery Problems Problem Notes Problem Name Start Date End Date Resolution Snomed Code Not e Anemia [id number] slowfe nile ly 1 tab Bogdan Calculation Initial Bogdan Date Initial Exam Date Initial Exam Provider Initial Ultrasound Date Last Menstrual Period Date Ultra Sound Weeks Gestation 07/13/2021 12/28/2020 12/15/2020 10/06/2020 10 Eighteen To Twenty Week Bogdan Update Ultra Sound Date Fundal Height At Umbil Quickening Date Ultra Sound Latest Weeks Gestation Final Bogdan Confirmed By Final Bogdan Confirmed Date Final Bogdan Date Ultra Sound Latest Days Gestation 0 [email or web address] 12/28/2020 07/10/19 22 0 Pre- Flowsheet Flowsheet Date 12/28/2020 Castillo Score Blood Edema Fundus Height Fundus Units Glucose Ketones Leukocytes Nitrite Labor Signs Protein Cervic Dilation Cervic Effacement Cervic Station 12 Type Weight in lbs Pre/Post Dialysis Refused Weight 164.82917975056 BP Diastolic BP Location Tested BP Systolic BP Type 80 R arm 129 sitting Fetus Heart Rate Present A 158 Fetus Movement Comments This patient is a 35-year-ol d 1 at 12 weeks gestation who presents for initial care. She is unremarkable medical, surgical, obstetric history. We talked about care in great detail. She has received COVID shot and is going to get COVID booster. She is going to get flu shot as well. She has no problems at this time. To begin routine care. Flowsheet Date 01/25/2021 Castillo Score Blood Edema Fundus Height Fundus Units Glucose Ketones Leukocytes Nitrite Labor Signs Protein Cervic Dilation Cervic Effacement Cervic Station Type Weight in lbs Pre/Post Dialysis Refused BP Diastolic BP Location Tested BP Systolic BP Type Fetus Heart Rate Present Fetus Movement Comments Flowsheet Date 01/25/2021 Castillo Score Blood Edema Fundus Height Fundus Units Glucose Ketones Leukocytes Nitrite Labor Signs Protein Cervic Dilation Cervic Effacement Cervic Station neg none trace Type Weight in lbs Pre/Post Dialysis Refused Weight 166.957906554188 BP Diastolic BP Location Tested BP Systolic BP Type 83 134 Fetus Heart Rate Present A 146 Present Fetus Movement A Yes Comments patient has had nausea and v omiting and was in ER. pt thought was having gender us today, not on schedule, was able to squeeze in after appt, doing well, no more nausea or vomiting,precautions reviewed f/u 4 weeks anatomy Flowsheet Date 02/22/2021 Castillo Score Blood Edema Fundus Height Fundus Units Glucose Ketones Leukocytes Nitrite Labor Signs Protein Cervic Dilation Cervic Effacement Cervic Station neg trace trace Type Weight in lbs Pre/Post Dialysis Refused Weight 174.17599540106 BP Diastolic BP Location Tested BP Systolic BP Type 87 145 90 150 Fetus Heart Rate Present Fetus Movement A Yes Comments patient states that has been stressed at work, is having some discharge and swelling. lots of stress at work, asymptomatic, anatomy scan today, precautions reviewed f/u 4 weeks Flowsheet Date 02/22/2021 Castillo Score Blood Edema Fundus Height Fundus Units Glucose Ketones Leukocytes Nitrite Labor Signs Protein Cervic Dilation Cervic Effacement Cervic Station Type Weight in lbs Pre/Post Dialysis Refused BP Diastolic BP Location Tested BP Systolic BP Type Fetus Heart Rate Present Fetus Movement Comments Flowsheet Date 03/21/2021 Castillo Score Blood Edema Fundus Height Fundus Units Glucose Ketones Leukocytes Nitrite Labor Signs Protein Cervic Dilation Cervic Effacement Cervic Station Type Weight in lbs Pre/Post Dialysis Refused BP Diastolic BP Location Tested BP Systolic BP Type Fetus Heart Rate Present Fetus Movement Comments Flowsheet Date 03/21/2021 Castillo Score Blood Edema Fundus Height Fundus Units Glucose Ketones Leukocytes Nitrite Labor Signs Protein Cervic Dilation Cervic Effacement Cervic Station neg trace 24 none trace Type Weight in lbs Pre/Post Dialysis Refused Weight 175.043899917481 BP Diastolic BP Location Tested BP Systolic BP Type 76 138 Fetus Heart Rate Present A 135 Fetus Movement A Yes Comments Doing well. US today anatomy now complete. Flu shot done, COVID booster done, Tdap discussed and encouraged. GCT next visit. Discussed she likely has at least some prehypertension- will monitor. Flowsheet Date 04/17/2021 Castillo Score Blood Edema Fundus Height Fundus Units Glucose Ketones Leukocytes Nitrite Labor Signs Protein Cervic Dilation Cervic Effacement Cervic Station neg trace 30 none trace Type Weight in lbs Pre/Post Dialysis Refused Weight 182.433894583115 BP Diastolic BP Location Tested BP Systolic BP Type 75 123 Fetus Heart Rate Present A 130 Fetus Movement A Yes Comments Doing great. GCT today. Got Tdap. BP good today. Flowsheet Date 05/01/2021 Castillo Score Blood Edema Fundus Height Fundus Units Glucose Ketones Leukocytes Nitrite Labor Signs Protein Cervic Dilation Cervic Effacement Cervic Station none 30 Type Weight in lbs Pre/Post Dialysis Refused Weight 182.247962082352 BP Diastolic BP Location Tested BP Systolic BP Type 81 130 Fetus Heart Rate Present A 134 Fetus Movement A Yes Comments Doing well. Had tdap. Sciati ca. Discussed stretches to minimize discomfort. Plan to return in 2 weeks for routine visit. Flowsheet Date 05/17/2021 Castillo Score Blood Edema Fundus Height Fundus Units Glucose Ketones Leukocytes Nitrite Labor Signs Protein Cervic Dilation Cervic Effacement Cervic Station neg none 33 trace Type Weight in lbs Pre/Post Dialysis Refused Weight 184.372820532885 BP Diastolic BP Location Tested BP Systolic BP Type 83 139 Fetus Heart Rate Present A 135 Fetus Movement A Yes Comments PATIENT STATES THAT HAVING C ONTRACTIONS, DISCHARGE, AND SWELLING. 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 Two obtained a growth ultrasound with estimated weight. Flowsheet Date 06/15/2021 Castillo Score Blood Edema Fundus Height Fundus Units Glucose Ketones Leukocytes Nitrite Labor Signs Protein Cervic Dilation Cervic Effacement Cervic Station Type Weight in lbs Pre/Post Dialysis Refused BP Diastolic BP Location Tested BP Systolic BP Type Fetus Heart Rate Present Fetus Movement Comments Flowsheet Date 06/15/2021 Castillo Score Blood Edema Fundus Height Fundus Units Glucose Ketones Leukocytes Nitrite Labor Signs Protein Cervic Dilation Cervic Effacement Cervic Station 36 Type Weight in lbs Pre/Post Dialysis Refused Weight 189.597649006425 BP Diastolic BP Location Tested BP Systolic BP Type 85 R arm 146 sitting 88 L arm 137 sitting Fetus Heart Rate Present A 145 Fetus Movement A Yes Comments gbs, head is low, cervix too posterior to reach Flowsheet Date 06/22/2021 Castillo Score Blood Edema Fundus Height Fundus Units Glucose Ketones Leukocytes Nitrite Labor Signs Protein Cervic Dilation Cervic Effacement Cervic Station 37 Type Weight in lbs Pre/Post Dialysis Refused Weight 190.978299087563 BP Diastolic BP Location Tested BP Systolic BP Type 87 R arm 132 sitting Fetus Heart Rate Present A 145 Fetus Movement A Yes Comments No complaints, good mo vement, no signs or symptoms of labor. Flowsheet Date 06/23/2021 Castillo Score Blood Edema Fundus Height Fundus Units Glucose Ketones Leukocytes Nitrite Labor Signs Protein Cervic Dilation Cervic Effacement Cervic Station 38 0cm Type Weight in lbs Pre/Post Dialysis Refused Weight 193.83948971247 BP Diastolic BP Location Tested BP Systolic BP Type 93 R arm 151 sitting 86 L arm 149 sitting Fetus Heart Rate Present A 145 Fetus Movement Comments this patient is a 35-year-ol d 137 weeks gestation. She is now ruled in for gestational hypertension. Her cervical exam was unfavorable. We will induce her in 2 days. She was given preeclampsia precautions. She is asked to check her blood pressure if she could. She was given blood pressures for which to report to Labor and delivery on. Flowsheet Date 06/23/2021 Castillo Score Blood Edema Fundus Height Fundus Units Glucose Ketones Leukocytes Nitrite Labor Signs Protein Cervic Dilation Cervic Effacement Cervic Station Type Weight in lbs Pre/Post Dialysis Refused BP Diastolic BP Location Tested BP Systolic BP Type Fetus Heart Rate Present Fetus Movement Comments Flowsheet Date 07/05/2021 Castillo Score Blood Edema Fundus Height Fundus Units Glucose Ketones Leukocytes Nitrite Labor Signs Protein Cervic Dilation Cervic Effacement Cervic Station Type Weight in lbs Pre/Post Dialysis Refused Weight 173.595285033585 BP Diastolic BP Location Tested BP Systolic BP Type 95 168 93 151 90 150 Fetus Heart Rate Present Fetus Movement Comments Menstrual History Last Menstrual Date Menses Monthly On Bcp Conception Prior Menses Frequency Hcg Plus Date Menarche Onset Age 0810/06/2020 Genetic Screening And Infection History Question Response Note Mental Retardation/Autism false Patient's Age Will Be 35 Years Or Older At Estim ated Date of Delivery false Thalassemia (Greek, Albanian, Mediterranean, Or Background): MCV < 80 false Neural Tube Defect (Meningomyelocele, Spina Bifi da, Or Anencephaly) false Congenital Heart Defect false Down Syndrome false Jorge L-Sachs (eg, Roman Catholic, Cajun, Tamazight-Lithuanian) f alse Rosio Disease false Sickle Cell Disease Or Trait () false Hemophilia Or Other Blood Disorders false Muscular Dystrophy false Cystic Fibrosis false [place] false Intellectual Disability/Autism false If Yes, Was Person Tested For Fragile X? false Other Inherited Genetic Or Chromosomal Disorder false Maternal Metabolic Disorder (eg, Type 1 Diabetes , PKU) false Patient Or Baby's Father Had A Child With Defects Not Listed Above false Recurrent Loss, Or A Stillbirth false Medications (including Suppl ements, Vitamins, Herbs, OTC Drugs), Illicit/Recreational Drugs, Alcohol false If Yes, Agent(s) And Strength/Dosage false Any Other Genetic History false Live With Someone With TB Or Exposed To TB false Patient Or Partner Has History Of Genital Herpes false Rash Or Viral Illness Since Last Menstrual Perio d false History Of STD, Gonorrhea, Chlamydia, HPV, Syphi lis false Other Infection History false History of HIV false History of Hepatitis false Prior GBS-infected child false Hemoglobinopathy Or Carrier false Other Structural Defect false Recent Travel History Outside of Country false Delivery Information Delivery Date Delivery Type Labor Anesthesia Weeks Gestation Incision Type Labor Labor Length Hrs Delivered By Post Complications Tubal Sterilization Discharge Date Comments 2 [facility]du[facility] 38.1 Caesar Sheth MD Hemorrhage Bakri balloon insertion Discharge Information Feeding Method Contraceptive Method Maternal HG B and HCT Levels Breast
--- OUTSIDE RECORDS SUMMARY | 2024-04-02 12:32 | XMS_ITS | Patient Health Record ---
Author Organization [facility] Address [address], [place] [address] Care Team Providers Care Band Tacker Name Role Phone NADEEMNicole Primary Care Provider [phone] SCHUYLER MISTRY Unavailable [phone] Allergies Allergen (clinical drug ingredient) Drug/Non Drug Allergy documented on EMR Reaction Allergy Type Onset Date Status ciprofloxacin Cipro Unknown Drug Allergy Act any sulfamethoxazole / trimethoprim Bactrim vomitting Drug Allergy Active Reason For Referral No Information Medications Medication SIG (Take, Route, Frequency, Duration) Notes Start Date End Date Status Macrobid macrocrystals-monohydrate 100 mg 1 cap(s) orally 2 times a day for 5 day(s) 08/02/2016 Active fluconazole 150 mg 1 tab(s) orally once for 1 dose(s) 08/02/2016 Active Zovia 1/35 35 mcg-1 mg 1 tab(s) orally o nce a day for 28 Active Immunizations Vaccine Route Administration Date Status Comme nts Fluzone Quadrivalent 3yrs and older(VFC) IM Intramuscular 10/20/2009 Administered Pt was give n flu shot at [facility]. Lot# [id number]. Notice placed in folder for scanning. Gardasil (HPV) Unknown 02/26/2007 Administered Gardasil (HPV) Unknown 04/25/2007 Administered Gardasil (HPV)-VFC IM Intramuscular 09/19/2007 Administere d Influenza Unknown 01/15/2008 Administered Influenza Unknown 11/20/2008 Administered Influenza Unknown 12/30/2010 Administered [employer] fluzone lot [id number] left deltoid Social History Tobacco Use: Social History Observation Description Date Details (start date - stop date) Never Smoker NA - NA Tobacco Use: Question Answer Notes Are you a: nonsmoker Problems Problem Type SNOMED Code ICD Code Onset Dates Problem Status W/U Status Risk Notes Problem 87171422 Acne (706.1) Active confirmed Problem 179522503 Encounter for surveillance of contraceptive pills (Z30.41) Active confirmed Plan Of Treatment No Information Medical (General) History Medical History History ICD Code depression FLU SHOT 2010 NONE 2016 Surgical History Surgery Date(Month/Year) tonsillectomy 2010 dental surgery 2006 Hospitalization History Reason Date(Month/Year) SEE ABOVE
--- OUTSIDE RECORDS SUMMARY | 2024-04-02 12:32 | XMS_ITS | Continuity of Care Document ---
Author Organization [facility] Address [address] [place] [address] [place] [address] Phone Care Team Providers Care Primary Education Professor Name Role Phone Camden Vilchis MD Unavailable Unavailable Allergies, Adverse Reactions, Alerts Substance Reaction Status Criticality Sulfa (Sulfonamide Antibiotics) Active No Information Procedures Procedure Date PREV VISIT, NEW, AGE 18-39 Advance Directives Directive Yes / No Effective Date File Name No Information Encounters Encounter Description Practice Location Reason(s) For Visit Diagnoses Date Provider Providers Copied on Encounter [facility], [place], [address] [place], [place], [id number], tel:[phone] [facility], [place] No Information Deng Hannah. [address] [facility] [place], [id number], [place]. tel:[phone] PREV VISIT, NEW, AGE 18-39 [facility], [place], [address] [place], [place], [id number], tel:[phone] [facility] Medicine physical (chief complaint) Encounter for general adult medical examination without abnormal findings Deng Hannah. [address] [facility] [facility] [place], [place], [id number], [place]. tel:[phone] Family History Family Member Type Diagnosis Age At Onset Brother Problem of MVA Father Problem Hypertension Mother Problem Hypertension Father Problem High cholesterol Mother Problem High cholesterol Payers Payer name Insurance type Covered alliance party ID Authoriza tion(s) No Information Social History Type Description Quantity Date Captured Comments Alcohol Use Details Unknown Caffeine Use Details Unknown Tobacco Use Status No Information Smoking Status No Information Sex Female Chief Complaint And Reason For Visit No Information Plan Of Treatment Date Type Action Status No Information History Of Present Illness Encounter Date Complaint History Of Prese nt Illness physical Pt needs annual physical. Pt is in good health .Pt missed her last period. Her last period was around 10/08/20. pt denies any abd pain or vaginal bleeding pt c/o mild nausea, worse in the morning but no vomiting. Pt did home testing which positive. Pt denies any other complaints. Instructions Date Instruction Additional Infor mation No Information Assessments Type Assessment Date No Information
--- OUTSIDE RECORDS SUMMARY | 2024-04-02 12:33 | XMS_ITS | Continuity of Care Document ---
Author Organization [facility] Address [address] [place] [address] [place] [address] Phone Care Team Providers Care Pressurizer Name Role Phone Camden Vilchis MD Unavailable Unavailable Allergies, Adverse Reactions, Alerts Substance Reaction Status Criticality Sulfa (Sulfonamide Antibiotics) Active No Information Procedures Procedure Date PREV VISIT, NEW, AGE 18-39 Advance Directives Directive Yes / No Effective Date File Name No Information Encounters Encounter Description Practice Location Reason(s) For Visit Diagnoses Date Provider Providers Copied on Encounter [facility], [address] [place], [place], [id number], tel:[phone] [facility] No Information Deng Hannah. [address] [facility] [place], [place], [id number], [place]. tel:[phone] PREV VISIT, NEW, AGE 18-39 [facility], [address] [place], [place], [id number], tel:[phone] [facility] Medicine physical (chief complaint) Encounter for general adult medical examination without abnormal findings Deng Hannah. [address] [facility] [place], [id number], [place]. tel:[phone] Family History Family Member Type Diagnosis Age At Onset Brother Problem of MVA Father Problem Hypertension Mother Problem Hypertension Father Problem High cholesterol Mother Problem High cholesterol Payers Payer name Insurance type Covered republican ID Authoriza tion(s) No Information Social History [...]
== END 2024-04-02 12:27 | disposition home or self-care (01) ==
PROVIDERS: Emergency Provider Nurse Practitioner Family
DX: J01.90 Acute sinusitis, unspecified (principal)
CPT/HCPCS: 99213; G0463

== ENCOUNTER 2024-07-06 15:39 | Outpatient (CLI) | payer OTHER, SELFPAY ==
--- OUTSIDE RECORDS SUMMARY | 2024-07-06 16:16 | XMS_ITS | Data Portability ---
Author Organization [facility] Address [address] [place] [address] Care Team Providers Care Air Pollution Compliance Inspector Name Role Phone GAGANDEEP CANSECO Primary Care [...] None recorded. Lab CBC w/ auto diff [facility] (Lab), [address], [place], [address], 01:42:58 CMP, serum or plasma [facility] (Lab), [address], [place], [address], 01:42:59 lipid panel, blood [facility] (Lab), [address], [place], [address], 01:42:59 TSH, serum or plasma [facility] (Lab), [address] [facility], [place], [address], 01:43:00 vitamin D, 25-hydrox y, total, serum [facility] (Lab), [address] [facility], [place], [address], 01:43:00 Referral None recorded. Procedures None recorded. [...] Weeks 8,099 - 58,17 6 Not Available [facility] (Lab) [address], [place], [address], 08/11/2021 03:14:42 08/12/19 22 08/11/2021 CT/GC AND TRICH OMONA S VAGIN CHON (RRNA ), URINE chlamydia trachomatis, PCR Negati ve negati ve Not Available [facility] (Lab) [address] [facility], [place], [address], 08/12/2021 13:10:16 08/12/19 22 08/11/2021 CT/GC AND TRICH OMONA S VAGIN CHON (RRNA ), URINE neisseria gonorrhoeae, PCR Negati ve negati ve Not Available [facility] (Lab) [address] [facility], [place], [address], 08/12/2021 13:10:16 08/12/19 22 08/11/2021 CT/GC AND TRICH OMONA S VAGIN CHNO (RRNA ), URINE trichomonas vaginalis ribosomal RNA (rrna) Negati ve negati ve Not Available [facility] (Lab) [address] [facility], [place], [address], 08/12/2021 13:10:16 12/30/19 22 12/29/2021 CBC W/DIF F WBC 11.3 10'3/ uL 3.6-10 .2 high Not Available [facility] [address] [place] [address], [address], 12/30/2021 01:42:58 12/30/19 22 12/29/2021 CBC W/DIF F RBC 5.22 10'6/ uL (based on docume nted legal sex) 4.10-5 .30 Not Available [facility] [address] [place], [address], 12/30/2021 01:42:58 12/30/19 22 12/29/2021 CBC W/DIF F HGB 14.1 g/dL (based on docume nted legal sex) 11.9-1 5.8 Not Available [facility] [address] [place], [place] [address], [place], [address], 12/30/2021 01:42:58 12/30/1912/29/2021 CBC W/DIF F HCT 43.5 % (based on docume nted legal sex) 37.4-4 8.3 Not Available [facility] [place], [address], 12/30/2021 01:42:58 12/30/1912/29/2021 CBC W/DIF F MCV 83.3 fL 82.0-9 9.0 Not Available [facility] [place], [address], 12/30/2021 01:42:58 12/30/1912/29/2021 CBC W/DIF F MCH 27.0 pg 27.0-3 3.0 Not Available [facility] [address] [place] [address], [address], 12/30/2021 01:42:58 12/30/1912/29/2021 CBC W/DIF F MCHC 32.4 g/dL 32.0-3 6.0 Not Available [facility] [place], [address], 12/30/2021 01:42:58 12/30/1912/29/2021 CBC W/DIF F RDW 13.8 % 11.0-1 5.0 Not Available [facility] [address] [place], [place] [address], [address], 12/30/2021 01:42:58 12/30/1912/29/2021 CBC W/DIF F plt 363 10'3/ uL 150-45 0 Not Available [facility] [place], [address], 12/30/2021 01:42:58 12/30/1912/29/2021 CBC W/DIF F MPV 11.9 fL 9.8-12 .7 Not Available [facility] [address] [place] [address], [address], 12/30/2021 01:42:58 12/30/1912/29/2021 CBC W/DIF F NRBC's 0.0 % 0 Not Available [facility] [address] [place] [address], [address], 12/30/2021 01:42:58 12/30/1912/29/2021 CBC W/DIF F absolute NRBCs 0.0 10'3/ uL 0 Not Available [facility] [address] [place] [address], [address], 12/30/2021 01:42:58 12/30/19 22 12/29/2021 CBC W/DIF F neutrophils 60.4 % 37.0-7 2.0 Not Available [facility] [address] [place] [address], [address], 12/30/2021 01:42:58 12/30/1912/29/2021 CBC W/DIF F lymphocytes 30.0 % 16.0-4 8.0 Not Available [facility] [address] [place] [address], [address], 12/30/2021 01:42:58 12/30/1912/29/2021 CBC W/DIF F monocytes 7.6 % 4.0-14 .0 Not Available [facility] [address] [place] [address], [address], 12/30/2021 01:42:58 12/30/1912/29/2021 CBC W/DIF F eosinophils 1.2 % 0.0-9. 0 Not Available [facility] [address] [place] [address], [address], 12/30/2021 01:42:58 12/30/19 22 12/29/2021 CBC W/DIF F basophils 0.3 % 0.0-2. 0 Not Available [facility] [address] [place] [address], [address], 12/30/2021 01:42:58 12/30/1912/29/2021 CBC W/DIF F immature granulocytes 0.5 % no define d refere nce range Not Available [facility] [address] [place] [address], [address], 12/30/2021 01:42:58 12/30/1912/29/2021 CBC W/DIF F absolute neutrophils 6.8 10'3/ uL 1.1-6. 0 high Not Available [facility] [address] [place] [address], [address], 12/30/2021 01:42:58 12/30/19 22 12/29/2021 CBC W/DIF F absolute lymphocytes 3.4 10'3/ uL 0.7-3. 4 Not Available [facility] [address] [place] [address], [address], 12/30/2021 01:42:58 12/30/1912/29/2021 CBC W/DIF F absolute monocytes 0.9 10'3/ uL 0.3-1. 0 Not Available [facility] [address] [place] [address], [address], 12/30/2021 01:42:58 12/30/19 22 12/29/2021 CBC W/DIF F absolute eosinophils 0.1 10'3/ uL 0.0-0. 6 Not Available [facility] [address] [place], [address], 12/30/2021 01:42:58 12/30/1912/29/2021 CBC W/DIF F absolute basophils 0.0 10'3/ uL 0.0-0. 1 Not Available [facility] [address] [place] [address], [address], 12/30/2021 01:42:58 12/30/19 22 12/29/2021 CBC W/DIF [...] resul ts are expec salma. Not Available [facility] [address] [place] [address], [address], 12/30/2021 01:42:58 12/30/1912/29/2021 LIPID PANEL ,AMA (LDL- CALC) total cholesterol 180 mg/dL 0-199 Not Available [facility] [address] [place] [address], [address], 12/30/2021 01:42:59 12/30/1912/29/2021 LIPID PANEL ,AMA (LDL- CALC) triglyceride s 84 mg/dL 0.00-1 50.00 NCEP Refer ence Value s for Trigl yceri bart: Alisa l: <150 mg/dL Borde rline High: 150 - 199 mg/dL High: 200 - 499 mg/dL Very High: >/= 500 mg/dL Not Available [facility] [address] [place], [address], 12/30/2021 01:42:59 12/30/1912/29/2021 LIPID PANEL ,AMA (LDL- CALC) HDL cholesterol 58 mg/dL >40 Not Available [address], [address], 12/30/2021 01:42:59 12/30/19 22 12/29/2021 LIPID PANEL [...] mg/dL , HDL <40 mg/dL Not Available [address], [address], 12/30/2021 01:42:59 12/30/1912/29/2021 LIPID PANEL ,AMA (LDL- CALC) non-HDL cholesterol 122 mg/dL no refere nce range A reaso nable goal for non-H DL tari stero l is one that is 30 mg/dL highe r than the LDL tari stero l goal. Not Available [facility] Infectious [address], [address], 12/30/2021 01:42:59 12/30/1912/29/2021 LIPID PANEL ,AMA (LDL- CALC) chol/HDL ratio 3.1 . 0.0-5. 0 Not Available [address], [address], 12/30/2021 01:42:59 12/30/19 22 12/29/2021 CMP(C OMPRE HENSI VE METAB OLIC PANEL ) sodium 137 mmol/ L 133-14 6 Not Available [facility] Infectious Disease [address] [place] [address] [place], [address], 12/30/2021 01:42:59 12/30/1912/29/2021 CMP(C OMPRE HENSI VE METAB OLIC PANEL ) potassium 4.1 mmol/ L 3.5-5. 1 Not Available [facility] Infectious Disease [facility] [place], [address], 12/30/2021 01:42:59 12/30/1912/29/2021 CMP(C OMPRE HENSI VE METAB OLIC PANEL ) chloride 102 mmol/ L 98-107 Not Available [facility] Infectious Disease [facility] [place], [address], 12/30/2021 01:42:59 12/30/1912/29/2021 CMP(C OMPRE HENSI VE METAB OLIC PANEL ) carbon dioxide 24 mmol/ L 21-31 Not Available [facility] Infectious Disease [facility] [place], [address], 12/30/2021 01:42:59 12/30/1912/29/2021 CMP(C OMPRE HENSI VE METAB OLIC PANEL ) anion gap 11 mmol/ L 4-13 Not Available [facility] Infectious Disease [address] [place] [address], [address], 12/30/2021 01:42:59 12/30/1912/29/2021 CMP(C OMPRE HENSI VE METAB OLIC PANEL ) blood urea nitrogen 19 mg/dL 7-25 Not Available [facility] Infectious Disease [facility] [place], [address], 12/30/2021 01:42:59 12/30/19 22 12/29/2021 CMP(C OMPRE HENSI VE METAB OLIC PANEL ) creatinine 0.63 mg/dL 0.60-1 .30 Not Available [facility] Infectious Disease [address] [place] [place] [address] [place], [address], 12/30/2021 01:42:59 12/30/1912/29/2021 CMP(C OMPRE HENSI VE METAB OLIC PANEL ) egfrcr (CKD-epi 2020) >90 mL/mi n/1.7 3_m2 >=60 Not Available [facility] Infectious Disease [address] [place] [address], [address], 12/30/2021 01:42:59 12/30/1912/29/2021 CMP(C OMPRE HENSI VE METAB OLIC PANEL ) calcium 9.5 mg/dL 8.3-10 .5 Not Available [facility] Disease [address] [place] [address] [place], [address], 12/30/2021 01:42:59 12/30/1912/29/2021 CMP(C OMPRE HENSI VE METAB OLIC PANEL ) glucose 77 mg/dL 70-100 Not Available [facility] Infect[facility] Disease [address] [place] [address], [address], 12/30/2021 01:42:59 12/30/1912/29/2021 CMP(C OMPRE HENSI VE METAB OLIC PANEL ) protein, total 7.5 g/dL 6.4-8. 3 Not Available [facility] Disease [address] [place] [address], [address], 12/30/2021 01:42:59 12/30/1912/29/2021 CMP(C OMPRE HENSI VE METAB OLIC PANEL ) albumin 4.6 g/dL 3.5-5. 0 Not Available [facility] Infectious Disease [address] [place] [address], [address], 12/30/2021 01:42:59 12/30/1912/29/2021 CMP(C OMPRE HENSI VE METAB OLIC PANEL ) ALT 11 units /L 9-43 Not Available [facility] Infectious Disease [address] [place] [address], [address], 12/30/2021 01:42:59 12/30/19 22 12/29/2021 CMP(C OMPRE HENSI VE METAB OLIC PANEL ) alkaline phosphatase 123 units /L 34-104 high Not Available [facility] Infectious Disease [address] [place] [address], [address], 12/30/2021 01:42:59 12/30/1912/29/2021 CMP(C OMPRE HENSI VE METAB OLIC PANEL ) AST 87 units /L 13-39 high Not Available [facility] Infectious Disease [address] [place] [address], [address], 12/30/2021 01:42:59 12/30/1912/29/2021 CMP(C OMPRE HENSI VE METAB OLIC PANEL ) bilirubin, total 1.0 mg/dL 0.2-1. 2 Not Available [facility] Disease [address] [place] [address], [address], 12/30/2021 01:42:59 12/30/19 22 12/29/2021 TSH, REFLE X FREE T4 TSH 1.09 uIU/m L 0.30-5 .33 Not Available [facility] Infectious Disease [address] [place] [address], [address], 12/30/2021 01:43:00 12/30/1912/29/2021 VITAM IN D, 25-OH (TOTA L D2/D3 ) vitamin D, 25-hydroxy, total 25.9 NG/mL 30.0-1 00.0 low [place]ive of Defic iency : <20 ng/mL [facility] st[facility] of Insuf ficie ncy: 20-29 ng/mL [facility] st[facility] of Suffi cienc y: 30-10 0 ng/mL Sugge stive of Toxic ity: >150 ng/mL Not Available [facility] [address], [place], [address], 12/30/2021 01:43:00 12/30/19 22 12/29/2021 IMAGE GUIDE [...] as clini siri rojas nted. Not Available [facility] (Lab) [address] [facility], [place], [address], 01/04/2022 13:25:17 01/11/20 23 01/10/2023 IMAGE GUIDE [...] as clini siri rojas nted. Not Available [facility] (Lab) [address], [place], [address], 01/14/2023 13:15:25 Result Notes None recorded. Problems Name Problem SNOMED Code Status Onset Date Resolution Date Notes Provider Name and Address Organization Details Recorded Time 39473615 Completed 202007/21/2021 Rakel Acevedo [facility] 2 11:54:33 Anemia 756940434 Completed slowfe daily 1 tab Rakel Acevedo [facility] 2 11:54:28 Problem Notes None recorded. Procedures Surgical History Date Name Laterality Status Provider Name and Address Organization Details Recorded Time 2 Date of Last Pap Smear completed [facility] 01/03/2023 16:51:59 2 IUD Insertion completed [facility] 08/11/2021 11:31:46 1 extraction of wisdom tooth completed Dayanara Alvarado [facility] 02/22/2021 11:34:14 9 tonsilectomy/a denoids completed Dayanara Alvarado [facility] 02/22/2021 11:34:27 tonsilectomy/a denoids completed Anju Chester [facility] 01/10/2023 17:00:06 Imaging Results None recorded. Procedure Notes None recorded. Medical Equipment None Reported. Allergies Allergen ID Allergen Name Allergen Category Reaction Reaction Severity Criticality Documentation Date Start Date Code Code System Note Provider Name and Address Organization Details Recorded Time 94048 Substance with sulfonami de structure and antibacte rial mechanism of action (substanc e) medicatio n Not available Not available Not available 12/14/2020 22971 8003 SNOMED Sabra Kebede [facility] 12:52:00 31891 Bactrim medicatio n nausea severe Not available 12/14/2020 08476 9 RxNorm Sabra Kebede [facility] 12:52:09 87182 sulfabenz amide Not available nausea moderate Not available 12/28/2020 05595 RxNorm Nora Young [facility] 17:45:06 Medications Name Sig Start Date [...] Updated DateTime 07/25/2021 157.48 cm 29.6 kg/m2 09348.96 g 121 mm[Hg] 85 mm[Hg] [facility] 2 10:51:30 Date Recorded Body height Body mass index (BMI) Body weight Systolic blood pressure Diastolic blood pressure Provider Name and Address Organization Details Last Updated DateTime 08/11/2021 157.48 cm 29.8 kg/m2 35719.56 g 132 mm[Hg] 86 mm[Hg] [facility] 2 11:13:08 Date Recorded Body height Body mass index (BMI) Body weight Systolic blood pressure Diastolic blood pressure Provider Name and Address Organization Details Last Updated DateTime 09/11/2021 157.48 cm 29.6 kg/m2 08838.96 g 138 mm[Hg] 73 mm[Hg] [facility] 2 17:29:54 Date Recorded Body height Body mass index (BMI) Body weight Systolic blood pressure Diastolic blood pressure Provider Name and Address Organization Details Last Updated DateTime 12/29/2021 157.48 cm 29.3 kg/m2 18245.78 g 130 mm[Hg] 89 mm[Hg] [facility] 2 14:15:55 Date Recorded Body height Body mass index (BMI) Body weight Systolic blood pressure Diastolic blood pressure Provider Name and Address Organization Details Last Updated DateTime 01/10/2023 157.48 cm 29.4 kg/m2 93798.37 g 132 mm[Hg] 85 mm[Hg] Anju Chester [facility] 3 16:59:18 Social History Question Answer Notes LastModified by Organizat ion Details LastModified Time Tobacco Smoking Status Never Smoker Elbert hernandez [facility] 09/11/2021 17:06:50 Do You Have An Advance Directive? No Information n ot available 12/28/2020 What Is Your Level Of Alcohol Consumption? None Information not available 12/28/2020 If You Are , What Was Your Level Of Alcohol Consumption Prior To ? None [email or web address] Information not available 09/11/2021 How Many Years [...] Or The Highest Degree You Have Received? [id number] Information not available 12/28/2020 What Is Your Occupation? P[employer]atic [employer] Information not available 12/28/2020 Are There Any [...] Anxious, Or Unable To Sleep At Night)? [id number] Information not available 12/28/2020 Do You Use Any Illicit Or Recreational Drugs? No Information not available 12/28/2020 Do You Use Sunscreen Routinely? Yes Information not available 12/28/2020 Has Tobacco Cessation Counseling Been Provided? No [email or web address] Information not available 09/11/2021 Have You Used IV Drugs? No Information not available 12/28/2020 Do You Or Have You Ever Used Any Other Forms Of Tobacco Or Nicotine? No Information not available 09/11/2021 Sex: Unknown Functional Status Question Answer Note LastModified by Organizat ion Details LastModified Time Do you have difficulty walking or climbing stairs? No [email or web address] Information not available 09/11/2021 Are you able to walk? [email or web address] Information not available 12/28/2020 Are you able to care for yourself? Yes [email or web address] Information not available 09/11/2021 Do you have difficulty dressing or bathing? No Information not available 09/11/2021 What is your exercise level? Moderate Information not available 12/28/2020 Mental Status None recorded. Family History Relationship Description Onset Age of this Age Resolved Age Notes LastModified by Organization Details LastModified Time Mother Hypertensive disorder [email or web address] Not available 2020 10:36:57 Father Hypertensive disorder [email or web address] Not available 2020 10:36:57 Maternal Grandmother Hypertensive disorder Not available 2020 10:36:57 Maternal Grandmother Malignant neoplasm of lung Not available 2020 17:45:09 Maternal Grandmother Heart disease Not available 2020 17:45:09 Maternal Grandmother Disorder of lung Not available 2020 17:45:09 Paternal Grandmother Disorder of thyroid gland Not available 2020 17:45:10 Medical History Condition Response Allergies (Food, seasonal, environmental ) Y Other N Breast Cancer N Drug/Latex Allergies/Reactions Y Blood Transfusion N Dermatologic Disorders N Lung Disease N [...] SNOMED-CT Code Diagnosis ICD10 Code Diagnosis Note [id number] [address] [address] 12/15/2020 10:28:27 12/15/2020 11:31:00 Gynecologic examination 06512823 Z01.419 Z11.51 test positive 071715409 Z32.01 Risk factors addressed: Tobacco Cessation, Safe Sexual Practices, environmen soren, work hazards, travel restrictio ns, seat belt use.Eat a health well balanced diet, avoid alcohol, tobacco, and street drugs.Enga ge in daily low impact exercise, avoid temperatur e extremes, and cat, rodent, and bird feces.Avoi d travel to areas where zika virus is a concern.Of fered cf/sma/nip t. Considerin g all 3. Handouts given and discussed with patient.Ch ildbirth classes recommende d.New OB sheet given.If previous , counseling . Pt has already had covid vaccine. Encouraged flu vaccine.Pt verbalizes that she understand s the importance of above instructio ns.All questions were answered.P atient reminded to have annual well woman examinatio n and address [facility] [id number] Caesar London MD [facility] [address],[place] [address] 12/15/2020 12:27:50 12/15/2020 12:52:32 [id number] MD Emeka Beltre [address],[place] [address] 12/28/2020 16:56:07 12/28/2020 17:44:50 Uterine size for dates discrepancy 647176634 O26.841 Z3A.12 [id number] Caesar London MD [facility] [address],[place] [address] 12/28/2020 16:59:53 12/29/2020 15:30:56 Routine care 383598107 Z34.01 [id number] Sheba Groves [facility] [address],[place] [address] 01/25/2021 17:56:16 01/30/2021 13:38:53 Routine care 346757490 Z34.92 [id number] Caesar London MD [facility] [address],[place] [address] 01/25/2021 18:49:00 01/26/2021 03:50:12 [id number] Caesar London MD [facility] [address],[place] [address] 02/22/2021 11:17:30 02/22/2021 13:17:08 screening for malformation 454911013 Z36.3 [id number] Sheba Groves [facility] [address],[place] [address] 02/22/2021 11:18:34 02/22/2021 11:54:45 Routine care 461175366 Z34.92 [id number] Kirsten Bañuelos MD [facility] [address],[place] [address] 03/21/2021 15:29:42 03/21/2021 16:20:16 screening 055009822 Z36.2 [id number] Kirsten Bañuelos MD [facility] [address],[place] [address] 03/21/2021 15:30:27 03/22/2021 16:08:35 Routine care 943249324 Z34.02 [id number] Kirsten Bañuelos MD [facility] [address],[place] [address] 04/17/2021 16:25:40 04/17/2021 16:53:38 Routine care 812303153 Z34.02 [id number] Ashley Portillo [facility] [address],[place] [address] 05/01/2021 16:55:37 05/01/2021 18:22:24 Routine care 372006100 Z34.93 [id number] Sheba Groves, [facility] [address],[place] [address] 05/17/2021 16:20:57 05/17/2021 17:39:19 Routine care 581209302 Z34.92 [id number] Caesar London MD [facility] [address],[place] [address] 06/01/2021 11:57:43 06/01/2021 12:43:55 Routine care 708218544 Z34.01 [id number] Caesar London MD [facility] [address],[place] [address] 06/15/2021 16:58:57 06/15/2021 17:35:14 Uterine size for dates discrepancy 160640642 O26.841 Z3A.36 [id number] MD Emeka Beltre [address],[place] [address] 06/15/2021 16:59:29 06/15/2021 18:10:00 Routine care 216455685 Z34.01 [id number] MD Emeka Beltre [address],[place] [address] 06/22/2021 16:41:26 06/22/2021 20:03:46 Routine care 587597916 Z34.01 [id number] MD Emeka Beltre [address],[place] [address] 06/23/2021 14:42:53 06/23/2021 15:37:07 -induced hypertension 46898080 O13.9 [id number] MD Emeka Beltre [address],[place] [address] 06/23/2021 15:59:05 06/23/2021 17:01:20 -induced hypertension 20857057 O13.9 [id number] Caesar London MD [facility] [address],[place] [address] 07/05/2021 17:13:20 07/05/2021 18:23:01 -induced hypertension 80795474 O13.9 this patient is a 35-year-ol d [...] to monitor her blood pressure at home. [id number] MD Emeka Beltre [address],[place] [address] 07/25/2021 10:33:06 07/25/2021 11:54:48 care 827198503 Z39.2 this patient is a 35-year-ol d female presents for follow-up. She has not intercours e. She no trouble with bleeding. She is breastfeed ing. Her mood is good. Her baby is well. We have agreed to insert Mirena. We had lengthy discussion on contracept ion. [id number] Caesar London MD [facility] [address],[place] [address] 08/11/2021 11:00:15 08/11/2021 11:40:19 Contraception care management 913963470 Z30.9 IUD inserted without complicati ons. [id number] Caesar London MD [facility] [address],[place] [address] 09/11/2021 17:05:49 09/12/2021 14:35:43 Contraception care management 149790248 Z30.9 this patient is a 35-year-ol d female presents for IUD check. She is reporting intermitte nt bleeding. It is moderate. She denies any pain. Speculum exam was performed. The IUD appears well placed within the uterus. She was to continue to eat with the IUD. We agreed to talk in 4 weeks for bleeding persisted. [id number] Caesar London MD [facility] [address],[place] [address] 12/29/2021 14:00:32 12/29/2021 15:32:40 Gynecologic examination 69339382 Z01.419 Annual gynecologi dorothea exam performed. Patient will come back in [...] Cholestero l - today Pap - today [id number] JOEY Ramos [facility] [address],[place] [address] 01/10/2023 16:47:21 01/11/2023 10:09:24 Gynecologic examination 90172510 Z01.419 Z11.51 WWEBC - Mirena IUD, inserted 08/11/21hap py with [...] Member ID Guarantor Name 07/25/2021 1 UMR [id number] Leila Schramek [id number] Leila Schramek 08/11/2021 1 UMR [id number] Leila Schramek [id number] Leila Schramek 09/11/2021 1 UMR [id number] Leila Schramek [id number] Leila Schramek 12/29/2021 1 UMR [id number] Leila Schramek [id number] Leila Schramek 01/10/2023 1 UMR [id number] Leila Schramek [id number] Leila Guillen Notes Date Note Type Note Provider Name and Address Organization Details Recorded Time 07/25/2021 text/html this patient is a 35-year-old female presents for follow-up. She has not intercourse. She no trouble with bleeding. She is . Her mood is good. Her baby is well. We have agreed to insert Mirena. We had lengthy discussion on contraception. Caesar London MD [address], [place], [address], [facility] 07/25/2021 11:49:54 08/11/2021 text/html Patient presents for IUD insertion. Caesar London MD [address], [place], [address], [facility] 08/11/2021 11:34:09 09/11/2021 text/html this [...] persisted. Caesar London MD [address], [place], [address], [facility] 09/11/2021 19:52:47 12/29/2021 text/html Annual [...] depression;Anxiety Caesar London MD [address], [place], [address], [facility] 12/29/2021 15:01:32 01/10/2023 text/html Annual [...] age 42 JOEY Ramos [address], [place], [address], [facility] 01/11/2023 08:53:56 OBGyn Episode Ob Episode Information Episode Created Date Number of Fetuses Patient Bloodtype Patient rh Status Prepregnancy Weight lbs Domestic Partner Domestic Partner Phone Father Name Freight Loader Status 12/29/19 21 1 O Positive 162 CLOSED Fetus Data First Name Last Name Admitted to NICU Weight (g) Sex Living Outcome Pediatric Complications Fetus ID Race Codes Race Delivery Type 3005.04 7 F true Full Term meconium [id number] Vaginal Delivery Problems Problem Notes Problem Name Start Date End Date Resolution Snomed Code Not e Anemia [id number] slowfe nile ly 1 tab Bogdan Calculation [...] Weight in lbs Pre/Post Dialysis Refused Weight 164.67207145822 BP Diastolic BP Location Tested BP Systolic [...] Weight in lbs Pre/Post Dialysis Refused Weight 166.096429819791 BP Diastolic BP Location Tested BP Systolic [...] Weight in lbs Pre/Post Dialysis Refused Weight 174.60617532573 BP Diastolic BP Location Tested BP Systolic [...] Weight in lbs Pre/Post Dialysis Refused Weight 175.704156273495 BP Diastolic BP Location Tested BP Systolic [...] Weight in lbs Pre/Post Dialysis Refused Weight 182.814004153659 BP Diastolic BP Location Tested BP Systolic [...] Weight in lbs Pre/Post Dialysis Refused Weight 182.198885563640 BP Diastolic BP Location Tested BP Systolic [...] Weight in lbs Pre/Post Dialysis Refused Weight 184.621202110403 BP Diastolic BP Location Tested BP Systolic BP Type 83 139 Fetus Heart Rate Present A 135 Fetus Movement A Yes Comments PATIENT STATES THAT HAVING C ONTRACTIONS, DISCHARGE, AND SWELLING. reviewed precautions, has preadmit scheduled, dr bran as wardrobe custodian, f/u 2 weeks Flowsheet Date 06/01/2021 Castillo Score Blood Edema Fundus Height Fundus Units Glucose Ketones Leukocytes Nitrite Labor Signs Protein Cervic Dilation Cervic Effacement Cervic Station 37 Type Weight in lbs Pre/Post Dialysis Refused Weight 187.981732754718 BP Diastolic BP Location Tested BP Systolic [...] Weight in lbs Pre/Post Dialysis Refused Weight 189.054473214349 BP Diastolic BP Location Tested BP Systolic [...] Weight in lbs Pre/Post Dialysis Refused Weight 190.436928419897 BP Diastolic BP Location Tested BP Systolic [...] Weight in lbs Pre/Post Dialysis Refused Weight 193.27857177355 BP Diastolic BP Location Tested BP Systolic [...] Weight in lbs Pre/Post Dialysis Refused Weight 173.715779261400 BP Diastolic BP Location Tested BP Systolic [...] Estim ated Date of Delivery false Thalassemia (Swedish, Cuban, Mediterranean, Or Background): MCV < 80 false Neural Tube Defect (Meningomyelocele, Spina Bifi da, Or Anencephaly) false Congenital Heart Defect false Down Syndrome false Jorge L-Sachs (eg, Episcopal, Cajun, Tuvaluan-Shannon) f alse Rosio Disease false Sickle Cell Disease Or Trait () false Hemophilia Or Other Blood Disorders false Muscular Dystrophy false Cystic Fibrosis false [place]'s Chorea false Intellectual Disability/Autism false If Yes, [...] Comments 2 Induce d Regional-Ep idural 38.1 false Caesar London MD Hemorrhage Bakri balloon insertion Discharge Information Feeding Method Contraceptive Method Maternal HG B and HCT Levels Breast
--- OUTSIDE RECORDS SUMMARY | 2024-07-06 16:16 | XMS_ITS | Patient Health Record ---
Author Organization [facility] Address [address], [place] [address] Care Team Providers Care Senior Product Development Manager Name Role Phone NADEEMNicole Primary Care Provider SCHUYLER MISTRY Unavailable [phone] Allergies Allergen (clinical drug ingredient) Drug/Non Drug [...] Pt was give n flu shot at [facility]. Lot# [id number]. Notice placed in folder for scanning. Gardasil (HPV) Unknown 02/26/2007 Administered Gardasil (HPV) Unknown 04/25/2007 Administered Gardasil (HPV)-VFC IM Intramuscular 09/19/2007 Administere d Influenza Unknown 01/15/2008 Administered Influenza Unknown 11/20/2008 Administered Influenza Unknown 12/30/2010 Administered [place] [employer] fluzone lot [id number] left deltoid Social History Tobacco Use: Social History Observation Description Date Details (start date - stop date) Never Smoker NA - NA Tobacco Use: Question Answer Notes Are you a: nonsmoker Problems Problem Type SNOMED Code ICD Code Onset Dates Problem Status W/U Status Risk Notes Problem 74571466 Acne (706.1) Active confirmed Problem 156562143 Encounter for surveillance of contraceptive pills (Z30.41) Active confirmed Plan Of Treatment No Information Medical (General) History Medical History History ICD Code depression FLU SHOT 2010 NONE 2016 Surgical History Surgery Date(Month/Year) tonsillectomy 2010 dental surgery 2006 Hospitalization History Reason Date(Month/Year) SEE ABOVE
--- OUTSIDE RECORDS SUMMARY | 2024-07-06 16:16 | XMS_ITS | Continuity of Care Document ---
Author Organization [facility] Address [address] [place] [address] [place] [address] Phone Care Team Providers Care Fisher Scallop Name Role Phone Camden Vilchis MD Unavailable Unavailable Allergies, Adverse Reactions, Alerts Substance Reaction Status Criticality Sulfa (Sulfonamide Antibiotics) Active No Information Procedures Procedure Date PREV VISIT, NEW, AGE 18-39 Advance Directives Directive Yes / No Effective Date File Name No Information Encounters Encounter Description Practice Location Reason(s) For Visit Diagnoses Date Provider Providers Copied on Encounter [facility], [address] [place], [place], [id number], tel:[phone] [facility] No Information Deng Hannah. [address] [facility] [place], [id number], [place]. tel:[phone] PREV VISIT, NEW, AGE 18-39 [facility], [address] [place], [id number], tel:[phone] [facility] Medicine physical (chief complaint) Encounter for general adult medical examination without abnormal findings Deng Hannah. [address] [facility] [place], [id number], [place]. tel:[phone] Family History Family Member Type Diagnosis Age [...]
[2024-07-06 19:39] LABS: Basophils Absolute Auto 0.1 K/mm3 (0.0-0.1); Basophils Percent Auto 0.6 % (0.2-1.2); Eosinophils Absolute Auto 0.7 K/mm3 (0-0.3); Eosinophils Percent Auto 5.6 % (0-4.4); Hematocrit 40.2 % (37.0-47.0); Hemoglobin 13.3 g/dL (12.0-15.0); Immature Granulocyte Absolute 0.06 K/mm3 (0.00-0.031); Immature Granulocyte Percent A 0.5 % (0-0.5); Lymphocytes Absolute Auto 3.98 K/mm3 (0.9-3.2); Lymphocytes Percent Auto 32.1 % (18.3-44.2); Mean Corpuscular HGB Conc 33.1 g/dl (32-36); Mean Corpuscular Hemoglobin 28.5 pg (26-34); Mean Corpuscular Volume 86.3 fl (80-100); Monocytes Absolute Auto 0.8 K/mm3 (0.1-0.6); Monocytes Percent Auto 6.6 % (2.6-8.5); Neutrophils Absolute Auto 6.8 K/mm3 (1.3-6.7); Neutrophils Percent Auto 54.6 % (45.5-73.1); Platelet Count Result 274 k/mm3 (150-375); Red Blood Count 4.66 M/mm3 (4.2-5.4); White Blood Count 12.4 K/mm3 (4.5-10.0)
[2024-07-06 19:45] LABS: Alanine Aminotransferase 21 U/L (6-35); Albumin Level 4.2 g/dL (3.5-5.1); Alkaline Phosphatase 115 U/L (38-126); Anion Gap 9 mmol/L (4-12); Aspartate Amino Transferase 93 U/L (14-36); Bilirubin,Total 0.4 mg/dL (0.2-1.3); Blood Urea Nitrogen 17 mg/dL (7-17); Calcium 8.8 mg/dL (8.4-10.2); Carbon Dioxide 26 mmol/L (22-30); Chloride 102 mmol/L (98-107); Estimated Glomerular Filt Rate > 60; Glucose 102 mg/dL (65-110); Potassium 3.7 mmol/L (3.4-5.0); Sodium 137 mmol/L (137-145)
== END 2024-07-06 15:40 | disposition home or self-care (01) ==
LOC: ANHGOSHLAB 15:40
PROVIDERS: PCP Internal Medicine; Visit Provider Clinical Nurse Specialist
DX: D72.829 Elevated white blood cell count, unspecified (principal); R74.8 Abnormal levels of other serum enzymes
CPT/HCPCS: 36415; 80053; 85025

== ENCOUNTER 2024-08-03 00:48 | Emergency (ER) | payer OTHER, SELFPAY ==
[2024-08-03] VITALS (11 sets, daily range): BP systolic 101–126; BP diastolic 60–83; PULSE 66–78; RESP 10–20; TEMP 36.6; O2SAT 98–100
--- NOTE | ~2024-08-03 | CT_ITS ---
CT ANGIOGRAM NECK AND HEAD History: Acute onset paresthesias. Technique: Axial noncontrast imaging of brain was performed. Serial spiral axial images through the h ead and neck were then obtained during arterial phase IV injection of 100 cc of Omnipaque 350. 3-D po stprocessing and MIP images were then reconstructed on the remote workstation. Dose reduction techniq ue was used on this scan by utilizing automated exposure control and iterative reconstruction techniq ue. The dose-length product (DLP) was 1752.45 mGy-cm. CTA neck findings: Bilateral vertebral arteries are patent. Bilateral common carotid, internal carot id, and external carotid arteries are patent. No large vessel occlusion or stenosis. No aneurysm. The proximal right internal carotid artery demonstrates 0% stenosis relative to the normal distal artery lumen diameter. The proximal left internal carotid artery demonstrates 0% stenosis relative to the n ormal distal artery lumen diameter. CTA head findings: Distal vertebral arteries, basilar artery, and posterior cerebral arteries are pat ent. Distal internal carotid arteries, middle cerebral arteries, and anterior cerebral arteries are p atent. No large vessel occlusion or stenosis. No aneurysm seen. Axial noncontrast imaging of the brain is unremarkable. No acute infarct, intracranial hemorrhage, or mass lesion seen. No mass effect or midline shift. Kuhn-white differentiation intact. Ventricles and subarachnoid spaces are unremarkable. Paranasal sinuses and mastoid air cells are clear, aside from a cyst or polyp in the left maxillary sinus. Calvarium intact. Impression: Unremarkable exam. Reviewed, dictated and finalized at [facility]. Impression: Unremarkable exam.
--- NOTE | ~2024-08-03 | CT_ITS ---
Noncontrast CT scan of the cervical spine Technique: Multiple contiguous axial [address] images of the cervical spine were obtained and rec onstructed in 2D sagittal and coronal planes on the acquisition scanner. Dose reduction technique was used on this scan by utilizing automated exposure control, adjustment of the mA and/or kV according to patient size. The dose-length product (DLP) was 419.42 mGy-cm. Clinical History: Bilateral paresthesias Findings: No fractures or dislocations. There is minimal reversal normal cervical lordosis2. The int ervertebral disc spaces are preserved. No prevertebral soft tissue swelling. Impression: No fracture or subluxation of the cervical spine. No evidence for canal stenosis, cord compression, or neural foraminal narrowing. Reviewed, dictated and finalized at [facility]. Impression: No fracture or subluxation of the cervical spine. No evidence for canal stenosis, cord compression, or neural foraminal narrowing .
--- NOTE | ~2024-08-03 | XR_ITS ---
Clinical Indication: Arm tingling PA and lateral views of the chest: Comparison: None Findings: The lungs are clear, without evidence of focal consolidation or pleural effusion. Cardiome diastinal silhouette is within normal limits. Bones and soft tissues are unremarkable. Impression: Normal chest. Reviewed, dictated and finalized at [facility]. Impression: Normal chest.
--- OUTSIDE RECORDS SUMMARY | 2024-08-03 00:52 | XMS_ITS | Continuity of Care Document ---
Author Organization [facility] Address [address] [place] [address] [place] [address] Phone Care Team Providers Care Platen Drier Operator Name Role Phone Camden Vilchis MD Unavailable Unavailable Allergies, Adverse Reactions, Alerts Substance Reaction Status Criticality Sulfa (Sulfonamide Antibiotics) Active No Information Procedures Procedure Date PREV VISIT, NEW, AGE 18-39 Advance Directives Directive Yes / No Effective Date File Name No Information Encounters Encounter Description Practice Location Reason(s) For Visit Diagnoses Date Provider Providers Copied on Encounter [facility] [place], [address] [place], [place], [id number], tel:[phone] [facility] [place] No Information Deng Hannah. [address] [facility] [place], [id number], [place]. tel:[phone] PREV VISIT, NEW, AGE 18-39 [facility] [place], [address] [place], [place], [id number], tel:[phone] [facility] Medicine physical (chief complaint) Encounter for general adult medical examination without abnormal findings Deng Hannah. [address] [facility] [place], [id number], [place]. tel:[phone] Family History Family Member Type Diagnosis Age [...]
--- OUTSIDE RECORDS SUMMARY | 2024-08-03 00:52 | XMS_ITS | Patient Health Record ---
Author Organization [facility] Address [address], [place] [address] Care Team Providers Care County Director Name Role Phone NADEEMNicole Primary Care Provider [phone] SCHUYLER MISTRY Unavailable [phone] Allergies Allergen (clinical drug ingredient) Drug/Non Drug [...] for 1 dose(s) 08/02/2016 Active Zovia 1/35 (28 Day) 35 mcg-1 mg 1 tab(s) orally once a day for 28 Active Immunizations Vaccine Route Administration Date Status Comme nts Fluzone Quadrivalent 3yrs and older(VFC) IM Intramuscular 10/20/2009 Administered Pt was give n flu shot at [facility]. Lot# [id number]. Notice placed in folder for scanning. Gardasil (HPV) Unknown 02/26/2007 Administered Gardasil (HPV) Unknown 04/25/2007 Administered Gardasil (HPV)-VFC IM Intramuscular 09/19/2007 Administere d Influenza Unknown 01/15/2008 Administered Influenza Unknown 11/20/2008 Administered Influenza Unknown 12/30/2010 Administered [employer] fluzone lot [id number] left deltoid Social History Tobacco Use: Social History Observation Description Date Details (start date - stop date) Never Smoker NA - NA Tobacco Use: Question Answer Notes Are you a: nonsmoker Problems Problem Type SNOMED Code ICD Code Onset Dates Problem Status W/U Status Risk Notes Problem 82521966 Acne (706.1) Active confirmed Problem 802688135 Encounter for surveillance of contraceptive pills (Z30.41) Active confirmed Plan Of Treatment No Information Medical (General) History Medical History History ICD Code depression FLU SHOT 2010 NONE 2016 Surgical History Surgery Date(Month/Year) tonsillectomy 2010 dental surgery 2006 Hospitalization History Reason Date(Month/Year) SEE ABOVE
--- OUTSIDE RECORDS SUMMARY | 2024-08-03 00:52 | XMS_ITS | Data Portability ---
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 Lab CBC w/ auto diff [facility] (Lab), [address], [place], [address], 01:42:58 CMP, serum or plasma [facility] (Lab), [address], [place], [address], 01:42:59 lipid panel, blood [facility] (Lab), [address], [place], [address], 01:42:59 TSH, serum or plasma [facility] (Lab), [address], [place], [address], 01:43:00 vitamin D, 25-hydrox y, total, serum [facility] (Lab), [address], [place], [address], 01:43:00 Referral None recorded. Procedures None recorded. [...] Weeks 8,099 - 58,17 6 Not Available [facility] (Lab) [address], [place], [address], 08/11/2021 03:14:42 08/12/19 22 08/11/2021 CT/GC AND TRICH OMONA S VAGIN CHON (RRNA ), URINE chlamydia trachomatis, PCR Negati ve negati ve Not Available [facility] (Lab) [address], [place], [address], 08/12/2021 13:10:16 08/12/19 22 08/11/2021 CT/GC AND TRICH OMONA S VAGIN CHON (RRNA ), URINE neisseria gonorrhoeae, PCR Negati ve negati ve Not Available [facility] (Lab) [address], [place], [address], 08/12/2021 13:10:16 08/12/19 22 08/11/2021 CT/GC AND TRICH OMONA S VAGIN CHON (RRNA ), URINE trichomonas vaginalis ribosomal RNA (rrna) Negati ve negati ve Not Available [facility] (Lab) [address], [place], [address], 08/12/2021 13:10:16 12/30/19 22 12/29/2021 CBC W/DIF F WBC 11.3 10'3/ uL 3.6-10 .2 high Not Available [facility] [address] [place] [address], [address], 12/30/2021 01:42:58 12/30/19 22 12/29/2021 CBC W/DIF F RBC 5.22 10'6/ uL (based on docume nted legal sex) 4.10-5 .30 Not Available [facility] [address] [place], [address], 12/30/2021 01:42:58 12/30/19 22 12/29/2021 CBC W/DIF F HGB 14.1 g/dL (based on docume nted legal sex) 11.9-1 5.8 Not Available [facility] [address] [place], [place] [address], [address], 12/30/2021 01:42:58 12/30/1912/29/2021 CBC W/DIF F HCT 43.5 % (based on docume nted legal sex) 37.4-4 8.3 Not Available [facility] [place], [address], 12/30/2021 01:42:58 12/30/1912/29/2021 CBC W/DIF F MCV 83.3 fL 82.0-9 9.0 Not Available [facility] [place], [address], 12/30/2021 01:42:58 12/30/1912/29/2021 CBC W/DIF F MCH 27.0 pg 27.0-3 3.0 Not Available [facility] [address] [place] [address], [place], [address], 12/30/2021 01:42:58 12/30/1912/29/2021 CBC W/DIF F MCHC 32.4 g/dL 32.0-3 6.0 Not Available [facility] [place], [address], 12/30/2021 01:42:58 12/30/1912/29/2021 CBC W/DIF F RDW 13.8 % 11.0-1 5.0 Not Available [facility] [address] [place], [place] [address], [place], [address], 12/30/2021 01:42:58 12/30/1912/29/2021 CBC W/DIF F plt 363 10'3/ uL 150-45 0 Not Available [facility] [place], [address], 12/30/2021 01:42:58 12/30/1912/29/2021 CBC W/DIF F MPV 11.9 fL 9.8-12 .7 Not Available [facility] [address] [place], [place] [address], [place], [address], 12/30/2021 01:42:58 12/30/1912/29/2021 CBC W/DIF F NRBC's 0.0 % 0 Not Available [facility] [address] [place] [address], [address], 12/30/2021 01:42:58 12/30/1912/29/2021 CBC W/DIF F absolute NRBCs 0.0 10'3/ uL 0 Not Available [facility] [address] [place] [address], [address], 12/30/2021 01:42:58 12/30/19 22 12/29/2021 CBC W/DIF F neutrophils 60.4 % 37.0-7 2.0 Not Available [facility] [address] [place] [address], [address], 12/30/2021 01:42:58 12/30/1912/29/2021 CBC W/DIF F lymphocytes 30.0 % 16.0-4 8.0 Not Available [facility] [address] [place] [address], [address], 12/30/2021 01:42:58 12/30/1912/29/2021 CBC W/DIF F monocytes 7.6 % 4.0-14 .0 Not Available [facility] [address] [place] [address], [address], 12/30/2021 01:42:58 12/30/1912/29/2021 CBC W/DIF F eosinophils 1.2 % 0.0-9. 0 Not Available [facility] Disease [address] [place] [address], [place], [address], 12/30/2021 01:42:58 12/30/19 22 12/29/2021 CBC W/DIF F basophils 0.3 % 0.0-2. 0 Not Available [facility] Disease [address] [place] [address], [address], 12/30/2021 01:42:58 12/30/1912/29/2021 CBC W/DIF F immature granulocytes 0.5 % no define d refere nce range Not Available [facility] Disease [address] [place] [address], [address], 12/30/2021 01:42:58 12/30/1912/29/2021 CBC W/DIF F absolute neutrophils 6.8 10'3/ uL 1.1-6. 0 high Not Available [facility] Disease [address] [place] [address], [address], 12/30/2021 01:42:58 12/30/19 22 12/29/2021 CBC W/DIF F absolute lymphocytes 3.4 10'3/ uL 0.7-3. 4 Not Available [facility] Disease [address] [place] [address], [address], 12/30/2021 01:42:58 12/30/1912/29/2021 CBC W/DIF F absolute monocytes 0.9 10'3/ uL 0.3-1. 0 Not Available [facility] Disease [address] [place] [address], [address], 12/30/2021 01:42:58 12/30/19 22 12/29/2021 CBC W/DIF F absolute eosinophils 0.1 10'3/ uL 0.0-0. 6 Not Available [facility] [address] [place], [address], 12/30/2021 01:42:58 12/30/1912/29/2021 CBC W/DIF F absolute basophils 0.0 10'3/ uL 0.0-0. 1 Not Available [facility] [address] [place] [address], [address], 12/30/2021 01:42:58 12/30/19 22 12/29/2021 CBC W/DIF [...] resul ts are expec salma. Not Available [facility] Disease [address] [place] [address], [address], 12/30/2021 01:42:58 12/30/1912/29/2021 LIPID PANEL ,AMA (LDL- CALC) total cholesterol 180 mg/dL 0-199 Not Available [facility] [address] [place] [address], [address], 12/30/2021 01:42:59 12/30/1912/29/2021 LIPID PANEL ,AMA (LDL- CALC) triglyceride s 84 mg/dL 0.00-1 50.00 NCEP Refer ence Value s for Trigl yceri bart: Alisa l: <150 mg/dL Borde rline High: 150 - 199 mg/dL High: 200 - 499 mg/dL Very High: >/= 500 mg/dL Not Available [facility] Infectious Disease [address] [place], [address], 12/30/2021 01:42:59 12/30/1912/29/2021 LIPID PANEL ,AMA (LDL- CALC) HDL cholesterol 58 mg/dL >40 Not Available [address], [address], 12/30/2021 01:42:59 12/30/19 22 12/29/2021 LIPID PANEL [...] mg/dL , HDL <40 mg/dL Not Available [address], [address], 12/30/2021 01:42:59 12/30/1912/29/2021 LIPID PANEL ,AMA (LDL- CALC) non-HDL cholesterol 122 mg/dL no refere nce range A reaso nable goal for non-H DL tari stero l is one that is 30 mg/dL highe r than the LDL tari stero l goal. Not Available [facility] Infectious [address], [address], 12/30/2021 01:42:59 12/30/1912/29/2021 LIPID PANEL ,AMA (LDL- CALC) chol/HDL ratio 3.1 . 0.0-5. 0 Not Available [address], [address], 12/30/2021 01:42:59 12/30/19 22 12/29/2021 CMP(C OMPRE HENSI VE METAB OLIC PANEL ) sodium 137 mmol/ L 133-14 6 Not Available [facility] Infectious Disease [address] [place] [address] [place], [address], 12/30/2021 01:42:59 12/30/1912/29/2021 CMP(C OMPRE HENSI VE METAB OLIC PANEL ) potassium 4.1 mmol/ L 3.5-5. 1 Not Available [facility] Infectious Disease [facility] [place], [address], 12/30/2021 01:42:59 12/30/1912/29/2021 CMP(C OMPRE HENSI VE METAB OLIC PANEL ) chloride 102 mmol/ L 98-107 Not Available [facility] Infectious Disease [facility] [place], [address], 12/30/2021 01:42:59 12/30/1912/29/2021 CMP(C OMPRE HENSI VE METAB OLIC PANEL ) carbon dioxide 24 mmol/ L 21-31 Not Available [facility] Infectious [facility] [place], [address], 12/30/2021 01:42:59 12/30/1912/29/2021 CMP(C OMPRE HENSI VE METAB OLIC PANEL ) anion gap 11 mmol/ L 4-13 Not Available [facility] Infectious Disease [address] [place] [address], [place], [address], 12/30/2021 01:42:59 12/30/1912/29/2021 CMP(C OMPRE HENSI VE METAB OLIC PANEL ) blood urea nitrogen 19 mg/dL 7-25 Not Available [facility] Infectious [facility] [place], [address], 12/30/2021 01:42:59 12/30/19 22 12/29/2021 CMP(C OMPRE HENSI VE METAB OLIC PANEL ) creatinine 0.63 mg/dL 0.60-1 .30 Not Available [facility]ious Disease [address] [place], [place] [address] [place], [address], 12/30/2021 01:42:59 12/30/1912/29/2021 CMP(C OMPRE HENSI VE METAB OLIC PANEL ) egfrcr (CKD-epi 2020) >90 mL/mi n/1.7 3_m2 >=60 Not Available [facility] Infectious Disease [address] [place] [address], [place], [address], 12/30/2021 01:42:59 12/30/1912/29/2021 CMP(C OMPRE HENSI VE METAB OLIC PANEL ) calcium 9.5 mg/dL 8.3-10 .5 Not Available [facility] Infectious Disease [address] [place], [place] [address] [place], [address], 12/30/2021 01:42:59 12/30/1912/29/2021 CMP(C OMPRE HENSI VE METAB OLIC PANEL ) glucose 77 mg/dL 70-100 Not Available [facility] Infectious Disease [address] [place], [place] [address], [place], [address], 12/30/2021 01:42:59 12/30/1912/29/2021 CMP(C OMPRE HENSI VE METAB OLIC PANEL ) protein, total 7.5 g/dL 6.4-8. 3 Not Available [facility] Infectious Disease [address] [place] [address], [place], [address], 12/30/2021 01:42:59 12/30/1912/29/2021 CMP(C OMPRE HENSI VE METAB OLIC PANEL ) albumin 4.6 g/dL 3.5-5. 0 Not Available [facility] Infectious Disease [address] [place], [place] [address], [place], [address], 12/30/2021 01:42:59 12/30/1912/29/2021 CMP(C OMPRE HENSI VE METAB OLIC PANEL ) ALT 11 units /L 9-43 Not Available [facility] Infectious Disease [address] [place] [address], [address], 12/30/2021 01:42:59 12/30/19 22 12/29/2021 CMP(C OMPRE HENSI VE METAB OLIC PANEL ) alkaline phosphatase 123 units /L 34-104 high Not Available [facility] Infectious Disease [address] [place] [address], [address], 12/30/2021 01:42:59 12/30/1912/29/2021 CMP(C OMPRE HENSI VE METAB OLIC PANEL ) AST 87 units /L 13-39 high Not Available [facility] Infectious Disease [address] [place] [address], [address], 12/30/2021 01:42:59 12/30/1912/29/2021 CMP(C OMPRE HENSI VE METAB OLIC PANEL ) bilirubin, total 1.0 mg/dL 0.2-1. 2 Not Available [facility] [address] [place] [address], [address], 12/30/2021 01:42:59 12/30/19 22 12/29/2021 TSH, REFLE X FREE T4 TSH 1.09 uIU/m L 0.30-5 .33 Not Available [facility] Infectious Disease [address] [place] [address], [address], 12/30/2021 01:43:00 12/30/1912/29/2021 VITAM IN D, 25-OH (TOTA L D2/D3 ) vitamin D, 25-hydroxy, total 25.9 NG/mL 30.0-1 00.0 low [place] stive of Defic iency : <20 ng/mL [place] stive of Insuf ficie ncy: 20-29 ng/mL Sugge stive of Suffi cienc y: 30-10 0 ng/mL Sugge stive of Toxic ity: >150 ng/mL Not Available [facility] [address], [place], [address], 12/30/2021 01:43:00 12/30/19 22 12/29/2021 IMAGE GUIDE [...] as clini siri rojas nted. Not Available [facility] (Lab) [address], [place], [address], 01/04/2022 13:25:17 01/11/20 23 01/10/2023 IMAGE GUIDE [...] cance r preve ntion . If repor samla cytol ogic findi ng do not corre late with physi dorothea and/o r histo rical findi ngs, ena reed ion is recom ewa d, as clini siri rojas nted. Not Available [facility] (Lab) [address], [place], [address], 01/14/2023 13:15:25 Result Notes None recorded. Problems Name Problem SNOMED Code Status Onset Date Resolution Date Notes Provider Name and Address Organization Details Recorded Time 61989215 Completed 202007/21/2021 Rakel Acevedo [facility] 2 11:54:33 Anemia 773634603 Completed slowfe daily 1 tab Rakel Acevedo [facility] 2 11:54:28 Problem Notes None recorded. Procedures Surgical History Date Name Laterality Status Provider Name and Address Organization Details Recorded Time 2 Date of Last Pap Smear completed [facility] 01/03/2023 16:51:59 2 IUD Insertion completed [facility] 08/11/2021 11:31:46 1 extraction of wisdom tooth completed Dayanara Alvarado [facility] 02/22/2021 11:34:14 9 tonsilectomy/a denoids completed Dayanara Alvarado [facility] 02/22/2021 11:34:27 tonsilectomy/a denoids completed Anju Chester [facility] 01/10/2023 17:00:06 Imaging Results None recorded. Procedure Notes None recorded. Medical Equipment None Reported. Allergies Allergen ID Allergen Name Allergen Category Reaction Reaction Severity Criticality Documentation Date Start Date Code Code System Note Provider Name and Address Organization Details Recorded Time 46380 Substance with sulfonami de structure and antibacte rial mechanism of action (substanc e) medicatio n Not available Not available Not available 12/14/2020 [address] [facility] 12:52:00 03278 Bactrim medicatio n nausea severe Not available 12/14/2020 [address] [facility] 12:52:09 50316 sulfabenz amide Not available nausea moderate Not available 12/28/[address] [facility] 17:45:06 Medications Name Sig Start Date [...] Updated DateTime 07/25/2021 157.48 cm 29.6 kg/m2 60899.96 g 121 mm[Hg] 85 mm[Hg] [facility] 2 10:51:30 Date Recorded Body height Body mass index (BMI) Body weight Systolic blood pressure Diastolic blood pressure Provider Name and Address Organization Details Last Updated DateTime 08/11/2021 157.48 cm 29.8 kg/m2 09400.56 g 132 mm[Hg] 86 mm[Hg] [facility] 2 11:13:08 Date Recorded Body height Body mass index (BMI) Body weight Systolic blood pressure Diastolic blood pressure Provider Name and Address Organization Details Last Updated DateTime 09/11/2021 157.48 cm 29.6 kg/m2 23947.96 g 138 mm[Hg] 73 mm[Hg] [facility] 2 17:29:54 Date Recorded Body height Body mass index (BMI) Body weight Systolic blood pressure Diastolic blood pressure Provider Name and Address Organization Details Last Updated DateTime 12/29/2021 157.48 cm 29.3 kg/m2 11104.78 g 130 mm[Hg] 89 mm[Hg] [facility] 2 14:15:55 Date Recorded Body height Body mass index (BMI) Body weight Systolic blood pressure Diastolic blood pressure Provider Name and Address Organization Details Last Updated DateTime 01/10/2023 157.48 cm 29.4 kg/m2 74321.37 g 132 mm[Hg] 85 mm[Hg] Anju Chester [facility] 3 16:59:18 Social History Question Answer Notes LastModified by Organizat ion Details LastModified Time Tobacco Smoking Status Never Smoker Elbert hernandez [facility] 09/11/2021 17:06:50 Do You Have An Advance Directive? No Information n ot available 12/28/2020 If You Are , What Was Your Level Of Alcohol Consumption Prior To ? None [email or web address] Information not available 09/11/2021 How Many Years [...] Or The Highest Degree You Have Received? [id number] Information not available 12/28/2020 Are There Any [...] Has Tobacco Cessation Counseling Been Provided? No [email or web address] Information not available 09/11/2021 Have You Used IV Drugs? No Information not available 12/28/2020 Do You Have Difficulty Walking Or Climbing Stairs? No [email or web address] Information not available 09/11/2021 Sex: Unknown Functional Status Question Answer Note LastModified by Organizat ion Details LastModified Time Do you use any illicit or recreational drugs? No Information not available 12/28/2020 Do you or have you ever used any other forms of tobacco or nicotine? No [email or web address] Information not available 09/11/2021 What is your level of alcohol consumption? None Information not available 12/28/2020 Are you able to walk? [email or web address] Information not available 12/28/2020 Are you able to care for yourself? 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 No [email or web address] Information not available 09/11/2021 What is your exercise level? Moderate Information not available 12/28/2020 Mental Status Question Answer Note LastModified by Organization D etails LastModified Time Do you feel stressed (tense, restless, nervous, or anxious, or unable to sleep at night)? [id number] Information not available 12/28/2020 Family History Relationship Description Onset Age of this Age Resolved Age Notes LastModified by Organization Details LastModified Time Mother Hypertensive disorder [email or web address] Not available 2020 10:36:57 Father Hypertensive disorder Not available 2020 10:36:57 Maternal Grandmother Hypertensive disorder [email or web address] Not available 2020 10:36:57 Maternal Grandmother Malignant neoplasm of lung Not available 2020 17:45:09 Maternal Grandmother Heart disease Not available 2020 17:45:09 Maternal Grandmother Disorder of lung Not available 2020 17:45:09 Paternal Grandmother Disorder of thyroid gland Not available 2020 17:45:10 Medical History Condition Response Allergies (Food, seasonal, environmental ) Y Other N Drug/Latex Allergies/Reactions Y Blood Transfusion N Breast Cancer N Dermatologic Disorders N Lung Disease N Defects or Inherited Disease N Breast Problem N Gestational Diabetes N Hematologic disorders N Anesthesia Complications N History of STI N Deep Vein Thrombosis N Polycystic ovary syndrome N Anxiety Disorder Y Autoimmune disease N Arthritis N Polyps N Infertility N Acid Reflux (GERD) N History of abnormal pap N Cancer N Varicosities N Stroke N Neurologic/Epilepsy N Endometriosis N High Cholesterol N Fibromyalgia N Headaches N Kidney Disease N Heart Problems N Thyroid Problems N Kidney or Bladder Problems N GI Problems N Eating Disorder [...] SNOMED-CT Code Diagnosis ICD10 Code Diagnosis Note [id number] Ashley Portillo CNM [place] [address] [address] 12/15/2020 10:28:27 12/15/2020 11:31:00 Gynecologic examination 36381003 Z01.419 Z11.51 test positive 869512867 Z32.01 Risk factors addressed: Tobacco Cessation, Safe [...] annual well woman examinatio n and address [facility] . [id number] Caesar London MD [place] [address],[place] [address] 12/15/2020 12:27:50 12/15/2020 12:52:32 [id number] Caesar London MD [place] [address],[place] [address] 12/28/2020 16:56:07 12/28/2020 17:44:50 Uterine size for dates discrepancy 802934890 O26.841 Z3A.12 [id number] Caesar London MD [place] [address],[place] [address] 12/28/2020 16:59:53 12/29/2020 15:30:56 Routine care 007778708 Z34.01 [id number] [facility] [address],[place] [address] 01/25/2021 17:56:16 01/30/2021 13:38:53 Routine care 741965653 Z34.92 [id number] Caesar London MD [place] [address],[place] [address] 01/25/2021 18:49:00 01/26/2021 03:50:12 [id number] Caesar London MD [place] [address],[place] [address] 02/22/2021 11:17:30 02/22/2021 13:17:08 screening for malformation 996707055 Z36.3 [id number] [facility] [address],[place] [address] 02/22/2021 11:18:34 02/22/2021 11:54:45 Routine care 372780000 Z34.92 [id number] Kirsten Bañuelos MD [place] [address],[place] [address] 03/21/2021 15:29:42 03/21/2021 16:20:16 screening 616365241 Z36.2 [id number] Kirsten Bañuelos MD [place] [address],[place] [address] 03/21/2021 15:30:27 03/22/2021 16:08:35 Routine care 156015514 Z34.02 [id number] Kirsten Bañuelos MD [place] [address],[place] [address] 04/17/2021 16:25:40 04/17/2021 16:53:38 Routine care 247709218 Z34.02 [id number] Ashley Portillo [facility] [address],[place] [address] 05/01/2021 16:55:37 05/01/2021 18:22:24 Routine care 351790845 Z34.93 [id number] Sheba Groves [facility] [address],[place] [address] 05/17/2021 16:20:57 05/17/2021 17:39:19 Routine care 577105878 Z34.92 [id number] Caesar London MD [place] [address],[place] [address] 06/01/2021 11:57:43 06/01/2021 12:43:55 Routine care 562692785 Z34.01 [id number] MD Emeka Beltre [address],[place] [address] 06/15/2021 16:58:57 06/15/2021 17:35:14 Uterine size for dates discrepancy 845943186 O26.841 Z3A.36 [id number] Caesar London MD [place] [address],[place] [address] 06/15/2021 16:59:29 06/15/2021 18:10:00 Routine care 146094843 Z34.01 [id number] Caesar London MD [place] [address],[place] [address] 06/22/2021 16:41:26 06/22/2021 20:03:46 Routine care 517915141 Z34.01 [id number] Caesar London MD [place] [address],[place] [address] 06/23/2021 14:42:53 06/23/2021 15:37:07 -induced hypertension 00932178 O13.9 [id number] Caesar London MD [place] [address],[place] [address] 06/23/2021 15:59:05 06/23/2021 17:01:20 -induced hypertension 75167356 O13.9 [id number] Caesar London MD [place] [address],[place] [address] 07/05/2021 17:13:20 07/05/2021 18:23:01 -induced hypertension 87676615 O13.9 this patient is a 35-year-ol d [...] to monitor her blood pressure at home. [id number] MD Emeka Beltre [address],[place] [address] 07/25/2021 10:33:06 07/25/2021 11:54:48 care 995367222 Z39.2 this patient is a 35-year-ol d female presents for follow-up. She has not intercours e. She no trouble with bleeding. She is breastfeed ing. Her mood is good. Her baby is well. We have agreed to insert Mirena. We had lengthy discussion on contracept ion. [id number] Caesar London MD [place] [address],[place] [address] 08/11/2021 11:00:15 08/11/2021 11:40:19 Contraception care management 111325907 Z30.9 IUD inserted without complicati ons. [id number] Caesar London MD [place] [address],[place] [address] 09/11/2021 17:05:49 09/12/2021 14:35:43 Contraception care management 741884334 Z30.9 this patient is a 35-year-ol d female presents for IUD check. She is reporting intermitte nt bleeding. It is moderate. She denies any pain. Speculum exam was performed. The IUD appears well placed within the uterus. She was to continue to eat with the IUD. We agreed to talk in 4 weeks for bleeding persisted. [id number] Caesar London MD [place] [address],[place] [address] 12/29/2021 14:00:32 12/29/2021 15:32:40 Gynecologic examination 52119091 Z01.419 Annual gynecologi dorothea exam performed. Patient [...] Cholestero l - today Pap - today [id number] JOEY Ramos Philo [address],[place] [address] 01/10/2023 16:47:21 01/11/2023 10:09:24 Gynecologic examination [id number] Z01.419 Z11.51 WWEB - Mirena IUD, inserted 08/11/21hap py with [...] Member ID Guarantor Name 07/25/2021 1 UMR [id number] Leila Schramek [id number] Leila Schramek 08/11/2021 1 UMR [id number] Leila Schramek [id number] Leila Schramek 09/11/2021 1 UMR [id number] Leila Schramek [id number] Leila Schramek 12/29/2021 1 UMR [id number] Leila Schramek [id number] Leila Schramek 01/10/2023 1 UMR [id number] Leila Guillen [id number] Leila Guillen Notes Date Note Type Note [...] contraception. Caesar London MD [address], [place], [address], [facility] 07/25/2021 11:49:54 08/11/2021 text/html Patient presents for IUD insertion. Caesar London MD [address], [place], [address], [facility] 08/11/2021 11:34:09 09/11/2021 text/html this patient [...] persisted. Caesar London MD [address], [place], [address], [facility] 09/11/2021 19:52:47 12/29/2021 text/html Annual GYNReport ed bypatient.History: no gynecologic complaints Menstrual cycle:Normal menses Urinary symptoms:No hematuria; No incontinence Vulva:No genital lesion Vagina:Normal vaginal discharge Breast:No breast pain; No breast lump; No nipple discharge Current Contraception:Sati sfied with current contraception; Intrauterine device (iud) Sexual complaints:No sexual complaints; No pain during intercourse Menopausal Symptoms:No menopausal symptoms; Normal vaginal lubrication Psychological symptoms:No depression;Anxiety Casear London MD [address], [place], [address], [facility] 12/29/2021 15:01:32 01/10/2023 text/html Annual GYNReport [...] age 42 JOEY Ramos [address], [place], [address], [facility] 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 Status 12/29/19 21 1 O Positive 162 CLOSED Fetus Data First Name Last Name Admitted to NICU Weight (g) Sex Living Outcome Pediatric Complications Fetus ID Race Codes Race Delivery Type 3005.04 7 F true Full Term meconium [id number] Vaginal Delivery Problems Problem Notes Problem Name Start Date End Date Resolution Snomed Code Not e Anemia [id number] slowfe nile ly 1 tab Bogdan Calculation [...] Weight in lbs Pre/Post Dialysis Refused Weight 164.30006274674 BP Diastolic BP Location Tested BP Systolic [...] Weight in lbs Pre/Post Dialysis Refused Weight 166.478940377811 BP Diastolic BP Location Tested BP Systolic [...] Weight in lbs Pre/Post Dialysis Refused Weight 174.02625953108 BP Diastolic BP Location Tested BP Systolic [...] Weight in lbs Pre/Post Dialysis Refused Weight 175.035086118969 BP Diastolic BP Location Tested BP Systolic [...] Weight in lbs Pre/Post Dialysis Refused Weight 182.719874616062 BP Diastolic BP Location Tested BP Systolic [...] Weight in lbs Pre/Post Dialysis Refused Weight 182.303629106915 BP Diastolic BP Location Tested BP Systolic [...] Weight in lbs Pre/Post Dialysis Refused Weight 184.709648934832 BP Diastolic BP Location Tested BP Systolic BP Type 83 139 Fetus Heart Rate Present A 135 Fetus Movement A Yes Comments PATIENT STATES THAT HAVING C ONTRACTIONS, DISCHARGE, AND SWELLING. reviewed precautions, has preadmit scheduled, dr bran as recovery auditor, f/u 2 weeks Flowsheet Date 06/01/2021 Castillo Score Blood Edema Fundus Height Fundus Units Glucose Ketones Leukocytes Nitrite Labor Signs Protein Cervic Dilation Cervic Effacement Cervic Station 37 Type Weight in lbs Pre/Post Dialysis Refused Weight 187.436699163844 BP Diastolic BP Location Tested BP Systolic BP Type 83 L arm 134 sitting Fetus Heart Rate Present A 143 Fetus Movement A Yes Comments no complaints, questions wer e answered, is measuring larger than dates. Two obtained [...] Weight in lbs Pre/Post Dialysis Refused Weight 189.664722870976 BP Diastolic BP Location Tested BP Systolic [...] Weight in lbs Pre/Post Dialysis Refused Weight 190.059521444546 BP Diastolic BP Location Tested BP Systolic [...] Weight in lbs Pre/Post Dialysis Refused Weight 193.44140313479 BP Diastolic BP Location Tested BP Systolic [...] Weight in lbs Pre/Post Dialysis Refused Weight 173.317655774943 BP Diastolic BP Location Tested BP Systolic [...] Estim ated Date of Delivery false Thalassemia (Maldivian, Greenlandic, Mediterranean, Or Background): MCV < 80 false Neural Tube Defect (Meningomyelocele, Spina Bifi da, Or Anencephaly) false Congenital Heart Defect false Down Syndrome false Jorge L-Sachs (eg, Sikh, Cajun, Croatian-Citizen Of The [place]) f alse Rosio Disease false Sickle Cell Disease Or Trait () false Hemophilia Or Other Blood Disorders false Muscular Dystrophy false Cystic Fibrosis false [place]'s Chorea false Intellectual Disability/Autism false If Yes, [...]
--- NOTE | 2024-08-03 01:02 | ECG_ITS ---
Test Date: 2024-08-03 01:13:35 Measurements Intervals Timbo Rate: 69 P: 55 IN: 144 QRS: 55 QRSD: 90 T: 37 QT: 415 QTc: 447 Interpretive Statements SINUS RHYTHM NORMAL ECG No previous ECG available for comparison Electronically Signed On 08-03-2024 06:17:41 CDT by Rory Cespedes D.O.
[2024-08-03 01:30] LABS: Basophils Percent Auto 0.3 % (0.2-1.2); Eosinophils Absolute Auto 0.5 K/mm3 (0-0.3); Eosinophils Percent Auto 3.5 % (0-4.4); Hematocrit 38.8 % (37.0-47.0); Hemoglobin 13.1 g/dL (12.0-15.0); Immature Granulocyte Absolute 0.08 K/mm3 (0.00-0.031); Immature Granulocyte Percent A 0.6 % (0-0.5); Lymphocytes Absolute Auto 4.96 K/mm3 (0.9-3.2); Lymphocytes Percent Auto 35.8 % (18.3-44.2); Mean Corpuscular HGB Conc 33.8 g/dl (32-36); Mean Corpuscular Hemoglobin 28.9 pg (26-34); Mean Corpuscular Volume 85.7 fl (80-100); Mean Platelet Volume 11.3 fl (7.4-10.4); Monocytes Percent Auto 7.5 % (2.6-8.5); Neutrophils Absolute Auto 7.2 K/mm3 (1.3-6.7); Neutrophils Percent Auto 52.3 % (45.5-73.1); Platelet Count Result 272 k/mm3 (150-375); Red Blood Count 4.53 M/mm3 (4.2-5.4); Red Cell Distribution Width 12.2 % (11.5-14.5); White Blood Count 13.9 K/mm3 (4.5-10.0)
[2024-08-03 01:32] LABS: Alanine Aminotransferase 26 U/L (6-35); Albumin Level 4.2 g/dL (3.5-5.1); Alkaline Phosphatase 97 U/L (38-126); Anion Gap 7 mmol/L (4-12); Aspartate Amino Transferase 95 U/L (14-36); Bilirubin,Total 0.6 mg/dL (0.2-1.3); Blood Urea Nitrogen 16 mg/dL (7-17); Carbon Dioxide 25 mmol/L (22-30); Chloride 105 mmol/L (98-107); Estimated CRCL calculation 94 ml/min; Estimated Glomerular Filt Rate > 60; Glucose 106 mg/dL (65-110); Lipase 44 U/L (23-300); Potassium 3.4 mmol/L (3.4-5.0); Sodium 137 mmol/L (137-145)
[2024-08-03 01:41] LABS: Partial Thromboplastin Time 22.4 Seconds (22.3-36.8); Prothrombin Time 13.3 Seconds (11.1-14.7)
[2024-08-03 01:44] LABS: Troponin I < 0.012 ng/mL (0.000-0.034)
--- NOTE | 2024-08-03 03:26 | ED_ITS ---
HPI - General Adult General Chief complaint: Unspecified Stated complaint: head tingling, bilateral arm numbness Time Seen by Provider: 08/03/24 02:33 Source: patient Mode of arrival: ambulatory Limitations: no limitations History of Present Illness HPI narrative: Left-hand dominant female presents with report of acute onset symptoms of head tingling, dizziness, and bilateral arm numbness and tingling starting when she woke up at 12:15 a.m. he reports had tingling in dizziness has since subsided and she reports the pins and needle sensation that she was experiencing had been intermittent and had been throughout bilateral upper extremities but now is currently only in her hands but does affect all fingers. Denies any trauma or anticoagulation. No history of diabetes. She denies any vision changes or unilateral symptoms. No slurred speech. She denies any associated headache. No history of headaches. Denies any chest pain shortness of breath. When asked this has happened before she states that a few weeks ago she woke up out of sleep and 1 of her shoulders was numb but that this also resolved. Related Data Home Medications ?Medication ?Instructions ?Recorded ?Confirmed ?Last Taken ?Type doxycycline hyclate 20 mg tablet mg PO 07/09/24 07/09/24 Unknown History Allergies Allergy/AdvReac Type Severity Reaction Status Date / Time Sulfa (Sulfonamide AdvReac Vomiting Verified 08/03/24 00:50 Antibiotics) sulfabenzamide AdvReac Vomiting Verified 08/03/24 00:50 sulfamethoxazole (From AdvReac Vomiting Verified 08/03/24 00:50 Bactrim) trimethoprim (From Bactrim) AdvReac Vomiting Verified 08/03/24 00:50 PMFSH Past Medical History Medical History Left hand dominant Family History Family History Father Kidney disease Hypertension Mother High cholesterol Hypertension Grandparent Heart disease Emphysema lung Chronic obstructive pulmonary disease Grandparent Cerebrovascular accident Graves disease Grandparent Chronic obstructive pulmonary disease Social History Social History Social History: Caffeine- coffee daily Smoking status: Never smoker Alcohol intake: current Alcohol use details: Rarely Substance use: never Substance use type: does not use Do You Feel Safe in your Home?: Yes Lack of Transportation: No Lack of Food: Never True Current Housing: I Have Housing Concerned About Future Housing: No Difficulty Paying Gas/Electric Bills: No Difficulty Paying for Meds: No Currently Unemployed: No Education: Bachelor's Degree Difficulty w/ Childcare or Family Care: No Living arrangements: with family Spiritual care concerns: No Exam 2 Narrative: GENERAL: Well-appearing, well-nourished, and in no acute distress. HEAD: Normocephalic, atraumatic. EYES: Non injected, non icteric. Visual ring intact. Horizontal extraocular movements intact without nystagmus. pERRL 3mm. ENT: Nares clear, no rhinorrhea or epistaxis. Gross auditory acuity intact. NECK: Supple. No meningismus. CHEST: Speaking in full sentences. No respiratory distress. HEART: Regular rate and rhythm. . ABDOMEN: Soft, nondistended. EXTREMITIES: Normal range of motion. No lower extremity edema. SKIN: Warm, dry, no rash. NEURO: No focal deficits. Alert and oriented. Answering questions. Following commands. Normal speech without aphasia or dysarthria. No motor drift x4. Sensation intact throughout. No extinction. No ataxia on zyiwcd-qzcc-nscnye bilaterally. Smile is without asymmetry/loss of nasolabial fold. PSYCH: Normal mood and affect. Course Vital Signs Vital signs: Vital Signs Temperature 97.9 F 08/03/24 00:50 Pulse Rate 71 08/03/24 00:50 Respiratory Rate 18 08/03/24 00:50 Blood Pressure 115/66 08/03/24 00:50 Pulse Oximetry 100 08/03/24 00:50 Oxygen Delivery Room Air 08/03/24 00:50 Temperature 97.9 F 08/03/24 00:50 Pulse Rate 78 08/03/24 06:03 Respiratory Rate 13 08/03/24 06:03 Blood Pressure 126/66 08/03/24 06:03 Pulse Oximetry 100 08/03/24 06:03 Oxygen Delivery Room Air 08/03/24 00:50 Medical Decision Making [facility] Narrative Medical decision making narrative: This is a left hand dominant 38 year old female who presents to the emergency department with report of head tingling dizziness, and bilateral arm numbness starting when she woke up at 12:15 a.m.. The patient is protecting their airway which is patent. An IV is established by nursing staff blood work sent to the lab for evaluation. In the emergency department they are afebrile with vital signs within normal limits. She reports the head tingling and dizziness have resolved and that the paresthesias are in and only localized to her bilateral throughout fingers at this time. An EKG will be performed. NIHSS was evaluated per below. NIHSS Level Of consciousness: 0 Month and age:0 Follows commands:0 Gaze palsy:0 Visual ring: 0 Facial palsy:0 Left arm motor drift:0 Right arm motor drift:0 Left leg motor drift:0 Right leg motor drift:0 Limb ataxia:0 Sensation:0 Aphasia:0 Dysarthria:0 Extinction:0 Total: 0 DIFFERENTIAL DIAGNOSES Considered Stroke (CVA / TIA) mimics including but not limited to: migraines, hypoglycemia, seizures/Roman's paralysis, sepsis/severe infections in patients with prior strokes (e.g. recrudescence), syncope, brain masses, transient global amnesia, panic attack/hyperventilation, and conversion disorders. Considered cervical canal stenosis. Labs: Troponin normal. Leukocytosis. Isolated AST elevation, chronic per review of the EMR. CPK mildly elevated but not to a degree to suggest acute rhabdomyolysis. Patient is able to tolerate p.o.. Symptoms are not unilateral. Little to suspect TIA/CVA. Symptoms have fully resolved at the time of reassessment. We extensively discussed patient's workup and the mild abnormalities. She notes that she worked out yesterday and that may explain the slightly elevated CPK. Given that she had experienced some shoulder numbness a few weeks ago that also resolved we discussed the importance of following up with her primary care physician and especially of she continues to have intermittent symptoms such as this the consideration for outpatient MRI. She verifies understanding and is in agreement. She states that she has been able to get some sleep well waiting in the emergency department overnight for her workup however I did provide her a work note. Differential Diagnosis Differential Diagnosis: CVA/TIA, multiple sclerosis, psychogenic; cervical stenosis. Vital Signs Vital Signs: Vital Signs Temperature 97.9 F 08/03/24 00:50 Pulse Rate 71 08/03/24 00:50 Respiratory Rate 18 08/03/24 00:50 Blood Pressure 115/66 08/03/24 00:50 Pulse Oximetry 100 08/03/24 00:50 Oxygen Delivery Room Air 08/03/24 00:50 Temperature 97.9 F 08/03/24 00:50 Pulse Rate 78 08/03/24 06:03 Respiratory Rate 13 08/03/24 06:03 Blood Pressure 126/66 08/03/24 06:03 Pulse Oximetry 100 08/03/24 06:03 Oxygen Delivery Room Air 08/03/24 00:50 Lab Data Lab results reviewed: Yes I reviewed the patient's lab results. 08/03/24 01:10 08/03/24 01:10 Labs: Lab Results 08/03/24 08/03/24 08/03/24 Range/Units 01:10 04:07 04:10 WBC 13.9 H (4.5-10.0) K/mm3 RBC 4.53 (4.2-5.4) M/mm3 Hgb 13.1 (12.0-15.0) g/dL Hct 38.8 (37.0-47.0) % MCV 85.7 (80-100) fl MCH 28.9 (26-34) pg MCHC 33.8 (32-36) g/dl RDW 12.2 (11.5-14.5) % Plt Count 272 (150-375) k/mm3 MPV 11.3 H (7.4-10.4) fl Immature Gran % (Auto) 0.6 H (0-0.5) % Neut % (Auto) 52.3 (45.5-73.1) % Lymph % (Auto) 35.8 (18.3-44.2) % [place] % (Auto) 7.5 (2.6-8.5) % Eos % (Auto) 3.5 (0-4.4) % Baso % (Auto) 0.3 (0.2-1.2) % Lymph # (Auto) 4.96 H (0.9-3.2) K/mm3 [place] # (Auto) 1.0 H (0.1-0.6) K/mm3 Eos # (Auto) 0.5 H (0-0.3) K/mm3 Baso # (Auto) 0.0 (0.0-0.1) K/mm3 Abs Immat Gran (auto) 0.08 H (0.00-0.031) K/mm3 Absolute Neuts (auto) 7.2 H (1.3-6.7) K/mm3 Absolute Nucleated RBC 0.000 (0.0-0.012) K/mm3 Nucleated RBC % 0.0 (0.0-0.2) % PT 13.3 (11.1-14.7) Seconds INR 1.0 APTT 22.4 (22.3-36.8) Seconds Sodium 137 (137-145) mmol/L Potassium 3.4 (3.4-5.0) mmol/L Chloride 105 (98-107) mmol/L Carbon Dioxide 25 (22-30) mmol/L Anion Gap 7 (4-12) mmol/L BUN 16 (7-17) mg/dL Creatinine 0.71 (0.7-1.0) mg/dL Estim Creat Clear Calc 94 ml/min Estimated GFR > 60 (59 - ) Glucose 106 (65-110) mg/dL Calcium 9.0 (8.4-10.2) mg/dL Magnesium 2.0 (1.6-2.3) mg/dL Total Bilirubin 0.6 (0.2-1.3) mg/dL AST 95 H (14-36) U/L ALT 26 (6-35) U/L Alkaline Phosphatase 97 (38-126) U/L Total Creatine Kinase 557 H (30-135) U/L Troponin I < 0.012 (0.000-0.034) ng/mL Total Protein 7.0 (6.3-8.2) g/dL Albumin 4.2 (3.5-5.1) g/dL Lipase 44 (23-300) U/L Urine Color Yellow (Yellow) Urine Appearance Clear (Clear) Urine pH 5.5 (5.0-9.0) Ur Specific [place] 1.008 (1.001-1.035) Urine Protein Negative (Negative) mg/dL Urine Glucose (UA) Negative (Negative) mg/dL Urine Ketones Negative (Negative) mg/dL Ur Blood (Man) Negative (Negative) Urine Nitrate Negative (Negative) Urine Bilirubin Negative (Negative) Urine Urobilinogen 0.2 (<2.0) mg/dL Leukocyte Esterase Rfl Negative (Negative) TREVER/UL POC Urine HCG, Qual Negative (Negative) Urine Opiates Screen Negative (Negative) Urine Methadone Screen Negative (Negative) Ur Barbiturates Screen Negative (Negative) Ur Phencyclidine Scrn Negative (Negative) Ur Amphetamine Screen Negative (Negative) U Benzodiazepines Scrn Negative (Negative) Urine Cocaine Screen Negative (Negative) U Cannabinoids Screen Negative (Negative) Imaging Data Attestation: I personally reviewed and interpreted this imaging study as follows: My impression: No acute process on my independent interpretation of chest x-ray Radiologist's impression: CT Head Stat Rad: No acute intracranial finding CTA neck stat rad: No acute finding. Unremarkable arteries CTA head stat rad: No large vessel occlusion. If there is further concern consider MRI. CT C spine without contrast: No acute C-spine finding. ECG Data EKG #1: Attestation: I personally reviewed and interpreted this ECG as follows: ECG completion date: 08/03/24 ECG completion time: 01:13 Interpretation: Normal sinus rhythm at a rate of 69 beats per minute. NC interval 144. QRS 90. QT/QTC 415/435. Normal axis. Good R-wave progression across the precordial leads. No T-wave inversions. Normal ECG. Discharge Plan Discharge Clinical Impression: Leukocytosis, Episode of dizziness, Paresthesias, Elevated SGOT (AST), Increased CPK level Patient Disposition: Home Condition: Stable Instructions: Antibiotic Form, Leukocytosis (ED), Paresthesia (ED), Dizziness (ED) Additional Instructions: Continue taking your medications as prescribed. Follow-up with your primary care provider. Return to the emergency department with any new worsening or unmanaged symptoms Patient Language: Irish Prescriptions: No Action doxycycline hyclate 20 mg tablet PO citalopram 20 mg tablet 20 mg PO DAILY Qty: 90 2RF Follow-up/Referrals: Perfecto Holder DO [Primary Care Provider] - Stand Alone Forms: Work/School Release IP Time of Disposition: 06:07
--- OUTSIDE RECORDS SUMMARY | 2024-08-03 03:27 | XMS_ITS | Continuity of Care Document ---
Author Organization [facility] Address [address] [place] [address] [place] [address] Phone Care Team Providers Care Clergy Member Name Role Phone Camden Vilchis MD Unavailable Unavailable Allergies, Adverse Reactions, Alerts Substance Reaction Status Criticality Sulfa (Sulfonamide Antibiotics) Active No Information Procedures Procedure Date PREV VISIT, NEW, AGE 18-39 Advance Directives Directive Yes / No Effective Date File Name No Information Encounters Encounter Description Practice Location Reason(s) For Visit Diagnoses Date Provider Providers Copied on Encounter [facility], [address] [place], [place], [id number], tel:[phone] [facility] No Information Deng Hannah. [address] [facility] [place], [id number], [place]. tel:[phone] PREV VISIT, NEW, AGE 18-39 [facility], [address] [place], [place], [id number], tel:[phone] [facility] Medicine physical (chief complaint) Encounter for general adult medical examination without abnormal findings Deng Hannah. [address] [facility] [place], [place], [id number], [place]. tel:[phone] Family History Family Member Type Diagnosis Age At Onset Brother Problem of MVA Father Problem Hypertension Mother Problem Hypertension Father Problem High cholesterol Mother Problem High cholesterol Payers Payer name Insurance type Covered democrat ID Authoriza tion(s) No Information Social History [...]
[2024-08-03 03:59] LABS: Creatine Kinase 557 U/L (30-135)
[2024-08-03 04:12] LABS: BEDSIDEPREGUCG Negative (Negative)
[2024-08-03 04:21] LABS: Add Urine Microscopic? NO; Appearance Urine Clear (Clear); Bilirubin Urine Negative (Negative); Blood Urine Negative (Negative); Color Urine Yellow (Yellow); Glucose Urine UA Negative (Negative); Ketones Urine Negative (Negative); Leukocyte Esterase Ur Negative LEU/UL (Negative); Nitrate Urine Negative (Negative); Protein Urine Negative (Negative); Specific Grav Ur 1.008 (1.001-1.035); Urobilinogen Urine 0.2 mg/dL (<2.0); pH Urine 5.5 (5.0-9.0)
[2024-08-03 04:39] LABS: Amphetamine Screen Urine Negative (Negative); Barbiturate Screen Urine Negative (Negative); Benzodiazepines Screen Urine Negative (Negative); Cannabinoid Screen Urine Negative (Negative); Cocaine Screen Urine Negative (Negative); Methadone Screen Urine Negative (Negative); Opiate Screen Urine Negative (Negative); Phencyclidine Screen Urine Negative (Negative)
== END 2024-08-03 06:25 | disposition home or self-care (01) ==
PROVIDERS: Emergency Medicine; Emergency Provider Student in an Organized Health Care Education/Training Program; PCP Internal Medicine
DX: D72.829 Elevated white blood cell count, unspecified (principal); R42 Dizziness and giddiness; R20.2 Paresthesia of skin; R74.01 Elevation of levels of liver transaminase levels
CPT/HCPCS: 36415; 70496; 70498; 71046; 72125; 80053; 80307; 81003; 81025; 82550; 83690; 83735; 84484; 85025; 85610; 85730; 93005; 99284; Q9967

== ENCOUNTER 2024-11-12 16:07 | Outpatient (CLI) | payer OTHER, SELFPAY ==
--- OUTSIDE RECORDS SUMMARY | 2024-11-12 16:53 | XMS_ITS | Patient Health Record ---
Author Organization [facility] Address [address], [place] [id number] Care Team Providers Care Manager Field Service Name Role Phone NADEEMNicole Primary Care Provider [phone] SCHUYLER MISTRY Unavailable [phone] Allergies Allergen (clinical drug ingredient) Drug/Non Drug [...] flu shot at [facility]. Lot# [id number]. Notice placed in folder for scanning. Gardasil (HPV) Unknown 02/26/2007 Administered Gardasil (HPV) Unknown 04/25/2007 Administered Gardasil (HPV)-VFC IM Intramuscular 09/19/2007 Administere d Influenza Unknown 01/15/2008 Administered Influenza Unknown 11/20/2008 Administered Influenza Unknown 12/30/2010 Administered [employer] fluzone lot [id number] left deltoid Social History Tobacco Use: Social History Observation Description Date Details (start date - stop date) Never Smoker NA - NA Tobacco Use: Question Answer Notes Are you a: nonsmoker Problems Problem Type SNOMED Code ICD Code Onset Dates Problem Status W/U Status Risk Notes Problem 03753578 Acne (706.1) Active confirmed Problem 469989217 Encounter for surveillance of contraceptive pills (Z30.41) Active confirmed Plan Of Treatment No Information Medical (General) History Medical History History ICD Code depression FLU SHOT 2010 NONE 2016 Surgical History Surgery Date(Month/Year) tonsillectomy 2010 dental surgery 2006 Hospitalization History Reason Date(Month/Year) SEE ABOVE
--- OUTSIDE RECORDS SUMMARY | 2024-11-12 16:53 | XMS_ITS | Clinical Summary ---
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 Name Role Phone Unavailable Primary Care Provider Unavailabl e Social History Tobacco Use Types Packs/Day Years Used Date Smoking Tobacco: Never Assessed Comments Unknown Sex and Gender Information Value Date Recorded Sex Assigned at Not on file Legal Sex Female 3:38 PM CDT Gender Identity Not on file Sexual Orientation Not on file Plan of Treatment Upcoming Encounters Date Type Department Care Team (Late st Contact Info) Description 11/13/2024 12:30 PM CDT Office Visit [facility] Oncology and Hematology - [address] [place] [address] Candi Bryan MD [address] [place] [address] Health Maintenance Due Date Last Done Comments DTAP/TDAP/TD VACCINES (1 - Tdap) 12/01/2006 HEPATITIS B VACCINES (1 of 3 - 19+ 3-dose series) 11/04 HPV/Cotest (21-29) 12/01/2008 HPV VACCINES (1 - 3-dose SCDM series) 12/01/2014 CERVICAL CANCER SCREENING 12/01/2017 HPV/Cotest (30-65) 12/01/2017 PAP SMEAR 12/01/2017 INFLUENZA VACCINE (#1) 2024 Insurance [facility] CHOICE [id number]
[2024-11-12 19:17] LABS: Hematocrit 40.7 % (37.0-47.0); Hemoglobin 13.2 g/dL (12.0-15.0); Immature Granulocyte Percent A 0.6 % (0-0.5); Lymphocytes Absolute Auto 3.94 K/mm3 (0.9-3.2); Mean Corpuscular HGB Conc 32.4 g/dl (32-36); Mean Corpuscular Hemoglobin 28.1 pg (26-34); Mean Corpuscular Volume 86.6 fl (80-100); Nucleated Red Blood Cells Absolute Auto 0.000 K/mm3 (0.0-0.012); Nucleated Red Blood Cells Perc 0.0 % (0.0-0.2); Platelet Count Result 346 k/mm3 (150-375); Red Blood Count 4.70 M/mm3 (4.2-5.4); White Blood Count 13.6 K/mm3 (4.5-10.0)
[2024-11-12 19:36] LABS: Alanine Aminotransferase 24 U/L (6-35); Albumin Level 4.5 g/dL (3.5-5.1); Alkaline Phosphatase 95 U/L (38-126); Aspartate Amino Transferase 95 U/L (14-36); Bilirubin,Total 0.6 mg/dL (0.2-1.3); Total Protein 8.1 g/dL (6.3-8.2)
[2024-11-13 13:50] LABS: Creatine Kinase 151 U/L (30-135)
[2024-11-16 14:08] LABS: Deamidated Gliadin Abs, IgA 3 units (0-19); Deamidated Gliadin Abs, IgG 1 units (0-19); Immunoglobulin A, Qn 222 mg/dL (87-352)
[2024-11-18 13:08] LABS: ANA by IFA Rfx Titer/Pattern Negative (.)
== END 2024-11-12 16:08 | disposition home or self-care (01) ==
LOC: ANHGOSHLAB 16:08
PROVIDERS: Visit Provider Nurse Practitioner
DX: R74.01 Elevation of levels of liver transaminase levels (principal); D72.829 Elevated white blood cell count, unspecified
CPT/HCPCS: 36415; 80076; 82550; 82784; 85025; 86038; 86231; 86258

== ENCOUNTER 2024-11-13 12:52 | Outpatient (CLI) | payer OTHER, SELFPAY ==
--- OUTSIDE RECORDS SUMMARY | 2024-11-13 12:30 | XMS_ITS | Encounter Summary ---
Author Organization [facility] FRANCA Hinojosa [facility] Address [address] [place] [address] Care Team Providers Care Promotions Firm Accounts Manager Name Role Phone Unavailable Primary Care Provider Unavailabl e Reason for Referral * Laboratory Services (Routine) - Open Specialty Diagnoses / Procedures Referred By Contac t Referred To Contact Diagnoses Leukocytosis, unspecified type Procedures BCR/ABL BY Candi Jensen MD [address] [place] [address] Phone: tel: fax: Referral ID Status Reason Start Date Expiration Date Visits Re quested Visits Authorized [id number] Open 11/13/2024 12/14/2025 1 1 Encounter Details Date Type Department Care Team (Late st Contact Info) Description 11/13/2024 12:30 PM CDT Office Visit [facility] Oncology and Hematology - [place] [address] [place] [address] Candi [place] MD [address] [place] [address] Leukocytosis, unspecified type (Primary Dx) Social History Tobacco Use Types Packs/Day Years Used Date Smoking Tobacco: Never Smokeless Tobacco: Never Tobacco Cessation:Counseling Given: Not Answered Alcohol Use Standard Drinks/Week Comments Not Currently 0 (1 standard drink = 0.6 oz pur e alcohol) Nothing since 03/2024 Comments Unknown Sex and Gender Information Value Date Recorded Sex Assigned at Not on file Legal Sex Female 3:38 PM CDT Gender Identity Not on file Sexual Orientation Not on file documented as of this encounter Last Filed Vital Signs Vital Sign Reading Time Taken Comments Blood Pressure 132/89 11/13/2024 12:09 PM CDT Pulse 85 11/13/2024 12:09 PM CDT Temperature 36.6 C (97.9 F) 11/13/2024 12:09 PM CDT Respiratory Rate 15 11/13/2024 12:09 PM CDT Oxygen Saturation 98% 11/13/2024 12:09 PM CDT Inhaled Oxygen Concentration - - Weight 82.4 kg (181 lb 9.6 oz) 11/13/2024 12:09 PM CDT Height 157.5 cm (5' 2) 11/13/2024 12:09 PM CDT Body Mass Index 33.22 11/13/2024 12:09 PM CDT documented in this encounter Plan of Treatment Upcoming Encounters Date Type Department Care Team (Late st Contact Info) Description 12/14/2024 4:30 PM CDT Telephone Check Up [facility] Oncology and Hematology - [place] [address] [place] [address] [address] [place] [phone] Angel Cano MD [address] [facility] [address] [place] [address] Scheduled Orders Name Type Priority Associated Diagnoses Orde r Schedule CBC WITH DIFFERENTIAL Lab Stat Leukocytosis, unspecified type Expected: 11/13/2024, Expires: 11/13/2025 FLOW CYTOMETRY PANEL Lab Routine Leukocytosis, unspecified type Expected: 11/13/2024, Expires: 11/13/2025 LACTATE DEHYDROGENASE Lab Routine Leukocytosis, unspecified type Expected: 11/13/2024, Expires: 11/13/2025 C-REACTIVE PROTEIN Lab Routine Leukocytosis, unspecified type Expected: 11/13/2024, Expires: 11/13/2025 SEDIMENTATION RATE Lab Routine Leukocytosis, unspecified type Expected: 11/13/2024, Expires: 11/13/2025 DAT SCREEN W/REFLEX Lab Routine Leukocytosis, unspecified type Expected: 11/13/2024, Expires: 11/13/2025 BCR/ABL BY FISH Lab Routine Leukocytosis, unspecified type Expected: 11/13/2024, Expires: 11/13/2025 documented as of this encounter Visit Diagnoses Diagnosis Leukocytosis, unspecified type- Primary documented in this encounter
--- NOTE | 2024-11-13 13:12 | CY_PTH ---
PATIENT: Leila Guillen LOC: [facility]#:[id number] AGE/SX: 38/F ROOM: RE11/13/[address]: Candi [place] MD : 1985 BED: DIS: 11/13/2024 SPEC #: [id number] RECD: 11/16/24 07:10 STATUS: WALTER REMame #: [id number] ALEXIA: 11/13/24 13:[address]: Candi [place] DEPT: [facility] Cytology RECD BY: Alok Powers ENTERED: 11/16/24 07:11 SP TYPE: Cytology OTHR DR: UNKNOWN,DOCTOR Tissues: A - Peripheral Blood Procedures: Flow Cytometry
[2024-11-13 13:20] LABS: Hematocrit 41.7 % (37.0-47.0); Hemoglobin 14.3 g/dL (12.0-15.0); Immature Granulocyte Percent A 0.8 % (0-0.5); Lymphocytes Absolute Auto 3.29 K/mm3 (0.9-3.2); Mean Corpuscular HGB Conc 34.3 g/dl (32-36); Mean Corpuscular Hemoglobin 28.9 pg (26-34); Mean Corpuscular Volume 84.2 fl (80-100); Nucleated Red Blood Cells Absolute Auto 0.000 K/mm3 (0.0-0.012); Nucleated Red Blood Cells Perc 0.0 % (0.0-0.2); Platelet Count Result 361 k/mm3 (150-375); Red Blood Count 4.95 M/mm3 (4.2-5.4); White Blood Count 11.5 K/mm3 (4.5-10.0)
--- OUTSIDE RECORDS SUMMARY | 2024-11-13 13:35 | XMS_ITS | Clinical Summary ---
Author Organization [facility] Address [address] [place] [address] Care Team Providers Care Communicable Disease Specialist Name Role Phone Unavailable Primary Care Provider Unavailabl e Source Comments [facility],non-owned Affiliates and Associated Physician Practices is amultiple site organization consisting of ambulatory clinics and hospital sitesin [place], [place], [place] and [place]. This disclosure is being madepursuant to the Care Everywhere program and may not contain all information available regarding this patient. Last updated 17.[facility] Health Encounters Date Type Department Care Team Description 10/14/2024 Travel from Last 3 Months Social History Tobacco Use Types Packs/Day Years Used Date Smoking Tobacco: Never Assessed Comments Unknown Sex and Gender Information Value Date Recorded Sex Assigned at Not on file Legal Sex Female 9:13 AM CDT Gender Identity Not on file Sexual Orientation Not on file Plan of Treatment Upcoming Encounters Date Type Department Care Team (Late st Contact Info) Description 01/25/2025 12:30 PM JOB COACH Procedure visit [facility] [place] [address] [place] [phone] 01/25/2025 1:00 PM JOB COACH Office Visit [facility] [place] [address] [place] [phone] Yumi Bettencourt, SPOOLING OPERATOR-RING STRIKER [address] [place] [address] OF GASTROENTEROLOGY [place], [place] [phone] Health Maintenance Due Date Last Done Comments HIV SCREENING 12/01/2002 HEPATITIS C SCREENING 11/27/2005 DTAP/TDAP/TD VACCINES (1 - Tdap) 12/01/2006 HEPATITIS B VACCINE (1 of 3 - 19+ 3-dose series) 12/01/2006 PAP SMEAR 12/01/2008 HPV VACCINE (1 - 3-dose SCDM series) 12/01/2014 DEPRESSION SCREENING 03/04/2024 COVID-19 VACCINE (1 - 2023-2 5 season) 2024 INFLUENZA VACCINE (#1) 2024 ZOSTER VACCINE (1 of 2) 12/01/2037 HIB VACCINE Aged Out No longer eligi ble based on patient's age to complete this topic MENINGOCOCCAL (Group B) VACC INE SHARED DECISION-MAKING Aged Out No longer eligibl e based on patient's age to complete this topic MENINGOCOCCAL GROUPS A/C/Y/W VACCINE Aged Out No longer eligible b ased on patient's age to complete this topic PNEUMOCOCCAL VACCINE Aged Out No long er eligible based on patient's age to complete this topic Insurance
--- OUTSIDE RECORDS SUMMARY | 2024-11-13 13:35 | XMS_ITS | Patient Health Record ---
Author Organization [facility] Address [address] [place], [place] [id number] Care Team Providers Care Top Lifter Name Role Phone NADEEMNicole Primary Care Provider [phone] SCHUYLER MISTRY Unavailable [phone] Allergies Allergen (clinical drug ingredient) Drug/Non Drug [...] Pt was give n flu shot at [facility]. Lot# [id number]. Notice placed in folder for scanning. Gardasil (HPV) Unknown 02/26/2007 Administered Gardasil (HPV) Unknown 04/25/2007 Administered Gardasil (HPV)-VFC IM Intramuscular 09/19/2007 Administere d Influenza Unknown 01/15/2008 Administered Influenza Unknown 11/20/2008 Administered Influenza Unknown 12/30/2010 Administered [place] [employer] fluzone lot [id number] left deltoid Social History Tobacco Use: Social History Observation Description Date Details (start date - stop date) Never Smoker NA - NA Tobacco Use: Question Answer Notes Are you a: nonsmoker Problems Problem Type SNOMED Code ICD Code Onset Dates Problem Status W/U Status Risk Notes Problem 96694553 Acne (706.1) Active confirmed Problem 605842221 Encounter for surveillance of contraceptive pills (Z30.41) Active confirmed Plan Of Treatment No Information Medical (General) History Medical History History ICD Code depression FLU SHOT 2010 NONE 2016 Surgical History Surgery Date(Month/Year) tonsillectomy 2010 dental surgery 2006 Hospitalization History Reason Date(Month/Year) SEE ABOVE
--- OUTSIDE RECORDS SUMMARY | 2024-11-13 13:35 | XMS_ITS | Clinical Summary ---
Author Organization [facility] Nathanael wynn [facility] Address [address] [facility] [place] [address] Care Team Providers Care Coin Dealer Name Role Phone Unavailable Primary Care Provider Unavailabl e Allergies Active Allergy Reactions Criticality Noted Date Comments Sulfa (Sulfonamide Antibiotics) Nausea and Vomiting Low 08/03/2024 Sulfamethoxazole-Trimethoprim Nausea and Vomiting Low 11/13/2024 Medications citalopram (CeleXA) 20 mg tablet Take 1 Tablet by mouth daily. 11/07/2024 Active doxycycline hyclate (VIBRAMYCIN) 20 mg Tablet Take 20 mg by mouth. 07/09/2024 Active Active Problems Problem Noted Date Diagnosed Date Leukocytosis 11/13/2024 Encounters Date Type Department Care Team Description 11/13/2024 12:30 PM CDT Office Visit [facility] Oncology and Hematology - [place] [address] [facility] [address] [place] [address] Candi [place] MD Leukocytosis, unspecified type (Primary Dx) from Last 3 Months Family History Medical History Relation Name Comments No Known Problems Brother No Known Problems Child No Known Problems Father No Known Problems Mother Relation Name Status Comments Brother Alive Child Alive Father Alive Mother Alive Social History Tobacco Use Types Packs/Day Years [...] on file Sexual Orientation Not on file Last Filed Vital Signs Vital Sign Reading [...] Mass Index 33.22 11/13/2024 12:09 PM CDT Plan of Treatment Upcoming Encounters Date Type Department Care Team (Late st Contact Info) Description 12/14/2024 4:30 PM CDT Telephone Check Up [facility] Oncology and Hematology [facility] [address] [facility] [address] [place] [address] Angel Cano MD [address] [facility] [address] [place] [address] Health Maintenance Due Date Last Done Comments HPV/Cotest (21-29) 12/01/2008 HPV VACCINES (1 - 3-dose SCD M series) 12/01/2014 CERVICAL CANCER SCREENING 12/01/2017 HPV/Cotest (30-65) 12/01/2017 PAP SMEAR 12/01/2017 Preventative Visit- Commercial 03/04/2024 INFLUENZA VACCINE (#1) 2024 3, 02/26/2022, 01/13/2021, Additional history exists DTAP/TDAP/TD VACCINES (7 - T d or Tdap) 04/14/2031 04/14/2021, 08/30/1993, 07/12/1989, Additional history exists HEPATITIS B VACCINES Completed 07/08/1997, 02/11/1997, 01/07/1997 Insurance [facility] CHOICE [id number]
[2024-11-13 14:20] LABS: CRP 0.8 mg/dL (<1.0)
[2024-11-17 12:08] LABS: ANA by IFA Rfx Titer/Pattern Positive (.)
== END 2024-11-13 12:53 | disposition home or self-care (01) ==
LOC: ANHLAB 12:54
PROVIDERS: Visit Provider Internal Medicine
DX: D72.829 Elevated white blood cell count, unspecified (principal)
CPT/HCPCS: 36415; 83615; 85025; 85652; 86038; 86140; 88184

== ENCOUNTER 2024-12-18 13:53 | Outpatient (CLI) | payer OTHER, SELFPAY ==
--- NOTE | ~2024-12-18 | MR_ITS ---
EXAMINATION: MR brain/brain stem wo/w con DATE: 12/18/2024 14:31 INDICATION: Anesthesia of skin. TECHNIQUE: Magnetic resonance imaging (MRI) of the brain and brainstem was performed without and with 17 mL MultiHance intravenous contrast. COMPARISON: Head CT 08/03/2024 FINDINGS: There is no intracranial hemorrhage, acute infarction, or abnormal intracranial mass lesion. The ventricles are normal in size. There are mucous retention cysts in the maxillary sinuses. There is mild mucosal thickening in the ethmoid sinuses. The orbits are normal. The mastoid air cells are normal. IMPRESSION: 1. Normal brain. Reviewed, dictated and finalized at location E. IMPRESSION: 1. Normal brain.
--- OUTSIDE RECORDS SUMMARY | 2024-12-18 13:59 | XMS_ITS | Clinical Summary ---
Author Organization [facility] Address [address] [facility] [place] [address] Care Team Providers Care Acute Care Physician Name Role Phone Unavailable Primary Care Provider Unavailabl e Source Comments [facility],non-owned Affiliates and Associated Physician Practices is amultiple site organization consisting of ambulatory clinics and hospital sitesin [place], [place], [place] and [place]. This disclosure is being madepursuant to the Care Everywhere program and may not contain all information available regarding this patient. Last updated 17.[facility] Health Encounters Date Type Department Care [...] st Contact Info) Description 01/25/2025 12:30 PM GLASS WOOL BLANKET MACHINE FEEDER Procedure visit [facility] [place] [address] [place] [phone] 01/25/2025 1:00 PM GLASS WOOL BLANKET MACHINE FEEDER Office Visit [facility] - [place] [address] [place] [phone] Yumi Bettencourt, BELT TENDER-GRIZZLY WORKER [address] [place] [address] OF GASTROENTEROLOGY [place], [place] [phone] Health Maintenance Due Date Last Done Comments [...]
--- OUTSIDE RECORDS SUMMARY | 2024-12-18 13:59 | XMS_ITS | Clinical Summary ---
Author Organization [facility] Nathanael wynn [place]ina Address [address] [place] [address] Care Team Providers Care Touring Production Manager Name Role Phone Unavailable Primary Care [...] Encounters Date Type Department Care Team Description 12/14/2024 4:30 PM CDT Telephone Check Up [facility] Oncology [facility] Hematology [facility] [address] [place] [address] Angel Cano MD Leukocytosis, unspecified type (Primary Dx) 12/08/2024 Abstract [facility] Oncology and [facility] [address] [place] [address] Angel Cano MD 11/18/2024 External Device Data STL ABSTRACTION Provider, Abstract 11/17/2024 External Device Data STL ABSTRACTION Provider, Abstract 11/17/2024 External Device Data STL ABSTRACTION Provider, Abstract 11/13/2024 12:30 PM CDT Office Visit [facility] Oncology [facility] [address] [place] [address] Candi [place] MD Leukocytosis, unspecified type (Primary [...] Care Team (Late st Contact Info) Description 06/16/2025 11:30 AM CDT Office Visit [facility] Oncology and Hematology - [place] [address] [facility] [address] [place] [address] Angel Cano MD [address] [facility] [address] [place] [address] Health Maintenance Due Date Last Done Comments Pre-Diabetes and Diabetes Screening 1985 DTAP/TDAP/TD VACCINES (1 - Tdap) 12/01/2006 HEPATITIS B VACCINES (1 of 3 - 19+ 3-dose series) 09/3 HPV/Cotest (21-29) 12/01/2008 HPV VACCINES (1 - 3-dose SCDM series) 12/01/2014 CERVICAL CANCER SCREENING 12/01/2017 HPV/Cotest (30-65) 12/01/2017 PAP SMEAR 12/01/2017 INFLUENZA VACCINE (#1) [address] [place] [place] [address] CHOICE [id number]
--- OUTSIDE RECORDS SUMMARY | 2024-12-18 13:59 | XMS_ITS | Patient Health Record ---
Author Organization [facility] Address [address] [place], [place] [address] Care Team Providers Care Patient Registrar Name Role Phone NADEEMNicole Primary Care Provider [phone] SCHUYLER MISTRY Unavailable [phone] Allergies Allergen (clinical drug ingredient) Drug/Non Drug [...] Pt was give n flu shot at [facility]. Lot# [id number]. Notice placed in folder for scanning. Gardasil (HPV) Unknown 02/26/2007 Administered Gardasil (HPV) Unknown 04/25/2007 Administered Gardasil (HPV)-VFC IM Intramuscular 09/19/2007 Administere d Influenza Unknown 01/15/2008 Administered Influenza Unknown 11/20/2008 Administered Influenza Unknown 12/30/2010 Administered [place] [employer] fluzone lot [id number] left deltoid Social History Tobacco Use: Social History Observation Description Date Details (start date - stop date) Never Smoker NA - NA Tobacco Use: Question Answer Notes Are you a: nonsmoker Problems Problem Type SNOMED Code ICD Code Onset Dates Problem Status W/U Status Risk Notes Problem 24311973 Acne (706.1) Active confirmed Problem 374927089 Encounter for surveillance of contraceptive pills (Z30.41) Active confirmed Plan Of Treatment No Information Medical (General) History Medical History History ICD Code depression FLU SHOT 2010 NONE 2016 Surgical History Surgery Date(Month/Year) tonsillectomy 2010 dental surgery 2006 Hospitalization History Reason Date(Month/Year) SEE ABOVE
--- OUTSIDE RECORDS SUMMARY | 2024-12-18 14:00 | XMS_ITS | Data Portability ---
Author Organization [facility] Address [address] [place] [address] Care Team Providers Care Labor Delivery Rn Name Role Phone GAGANDEEP CANSECO Primary Care Provider [phone] Assessment Encounter Date Assessment Date Assessment LastModified [...] None recorded. Lab CBC w/ auto diff [facility] (Lab), [address], [place], [address], 2 01:42:58 CMP, serum or plasma [facility] (Lab), [address], [place], [address], 2 01:42:59 lipid panel, blood [facility] (Lab), [address], [place], [address], 2 01:42:59 TSH, serum or plasma [facility] (Lab), [address], [place], [address], 01:43:00 vitamin D, 25-hydrox y, total, serum [facility] (Lab), [address], [place], [address], 2 01:43:00 Referral None recorded. Procedures None recorded. [...] Weeks 8,099 - 58,17 6 Not Available [facility] (Lab) [address], [place], [address], 08/11/2021 03:14:42 08/12/19 22 08/11/2021 CT/GC AND TRICH OMONA S VAGIN CHON (RRNA ), URINE chlamydia trachomatis, PCR Negati ve negati ve Not Available [facility] (Lab) [address], [place], [address], 08/12/2021 13:10:16 08/12/19 22 08/11/2021 CT/GC AND TRICH OMONA S VAGIN CHON (RRNA ), URINE neisseria gonorrhoeae, PCR Negati ve negati ve Not Available [facility] (Lab) [address], [place], [address], 08/12/2021 13:10:16 08/12/19 22 08/11/2021 CT/GC AND TRICH OMONA S VAGIN CHON (RRNA ), URINE trichomonas vaginalis ribosomal RNA (rrna) Negati ve negati ve Not Available [facility] (Lab) [address], [place], [address], 08/12/2021 13:10:16 12/30/19 22 12/29/2021 CBC W/DIF F WBC 11.3 10'3/ uL 3.6-10 .2 high Not Available [facility] [address] [place] [address], [address], 12/30/2021 01:42:58 12/30/19 22 12/29/2021 CBC W/DIF F RBC 5.22 10'6/ uL (based on docume nted legal sex) 4.10-5 .30 Not Available [facility] [address] [place] [address], [address], 12/30/2021 01:42:58 12/30/19 22 12/29/2021 CBC W/DIF F HGB 14.1 g/dL (based on docume nted legal sex) 11.9-1 5.8 Not Available [facility] [address] [place], [address], 12/30/2021 01:42:58 12/30/1912/29/2021 CBC W/DIF F HCT 43.5 % (based on docume nted legal sex) 37.4-4 8.3 Not Available [facility] [place], [address], 12/30/2021 01:42:58 12/30/1912/29/2021 CBC W/DIF F MCV 83.3 fL 82.0-9 9.0 Not Available [facility] [place], [address], 12/30/2021 01:42:58 12/30/1912/29/2021 CBC W/DIF F MCH 27.0 pg 27.0-3 3.0 Not Available [facility] [place], [address], 12/30/2021 01:42:58 12/30/1912/29/2021 CBC W/DIF F MCHC 32.4 g/dL 32.0-3 6.0 Not Available [facility] [place], [address], 12/30/2021 01:42:58 12/30/1912/29/2021 CBC W/DIF F RDW 13.8 % 11.0-1 5.0 Not Available [facility] [place], [address], 12/30/2021 01:42:58 12/30/1912/29/2021 CBC W/DIF F plt 363 10'3/ uL 150-45 0 Not Available [facility] [place], [address], 12/30/2021 01:42:58 12/30/1912/29/2021 CBC W/DIF F MPV 11.9 fL 9.8-12 .7 Not Available [facility] [address] [place], [place] [address], [address], 12/30/2021 01:42:58 12/30/1912/29/2021 CBC W/DIF F NRBC's 0.0 % 0 Not Available [facility] [address] [place], [place] [address] [place], [address], 12/30/2021 01:42:58 12/30/1912/29/2021 CBC W/DIF F absolute NRBCs 0.0 10'3/ uL 0 Not Available [facility] [address] [place] [address], [address], 12/30/2021 01:42:58 12/30/19 22 12/29/2021 CBC W/DIF F neutrophils 60.4 % 37.0-7 2.0 Not Available [facility] [address] [place] [address], [address], 12/30/2021 01:42:58 12/30/19 22 12/29/2021 CBC W/DIF F lymphocytes 30.0 % 16.0-4 8.0 Not Available [facility] [address] [place] [address], [address], 12/30/2021 01:42:58 12/30/1912/29/2021 CBC W/DIF F monocytes 7.6 % 4.0-14 .0 Not Available [facility] [address] [place] [address], [address], 12/30/2021 01:42:58 12/30/1912/29/2021 CBC W/DIF F eosinophils 1.2 % 0.0-9. 0 Not Available [facility] [address] [place], [place] [address], [address], 12/30/2021 01:42:58 12/30/1912/29/2021 CBC W/DIF F basophils 0.3 % 0.0-2. 0 Not Available [facility] [address] [place], [place] [address], [place], [address], 12/30/2021 01:42:58 12/30/1912/29/2021 CBC W/DIF F immature granulocytes 0.5 % no define d refere nce range Not Available [facility] [address] [place], [place] [address], [place], [address], 12/30/2021 01:42:58 12/30/1912/29/2021 CBC W/DIF F absolute neutrophils 6.8 10'3/ uL 1.1-6. 0 high Not Available [facility] [address] [place] [address], [address], 12/30/2021 01:42:58 12/30/19 22 12/29/2021 CBC W/DIF F absolute lymphocytes 3.4 10'3/ uL 0.7-3. 4 Not Available [facility] [address] [place] [address], [address], 12/30/2021 01:42:58 12/30/1912/29/2021 CBC W/DIF F absolute monocytes 0.9 10'3/ uL 0.3-1. 0 Not Available [facility] [address] [place] [address], [address], 12/30/2021 01:42:58 12/30/19 22 12/29/2021 CBC W/DIF F absolute eosinophils 0.1 10'3/ uL 0.0-0. 6 Not Available [facility] [address] [place], [place] [address], [place], [address], 12/30/2021 01:42:58 12/30/1912/29/2021 CBC W/DIF F absolute basophils 0.0 10'3/ uL 0.0-0. 1 Not Available [facility] [address] [place] [address], [address], 12/30/2021 01:42:58 12/30/1912/29/2021 CBC W/DIF F absolute immature granulocytes 0.1 10'3/ uL 0.00-0 .10 12/30 12:11 AM: P indic ates parti al resul ts on a panel have been relea sed. Addit alejo resul ts will follo w. 12/30 12:11 AM: This resul t has been final verif ied. No addit ional or misa ed resul ts are expec salma. Not Available [facility] [address] [place] [address], [address], 12/30/2021 01:42:58 12/30/1912/29/2021 LIPID PANEL ,AMA (LDL- CALC) total cholesterol 180 mg/dL 0-199 Not Available [facility] [address] [place] [address], [address], 12/30/2021 01:42:59 12/30/1912/29/2021 LIPID PANEL ,AMA (LDL- CALC) triglyceride s 84 mg/dL 0.00-1 50.00 NCEP Refer ence Value s for Trigl yceri bart: Alisa l: <150 mg/dL Borde rline High: 150 - 199 mg/dL High: 200 - 499 mg/dL Very High: >/= 500 mg/dL Not Available [facility] [address] [place] [address], [address], 12/30/2021 01:42:59 12/30/1912/29/2021 LIPID PANEL ,AMA (LDL- CALC) HDL cholesterol 58 mg/dL >40 Not Available [address], [address], 12/30/2021 01:42:59 12/30/19 22 12/29/2021 LIPID PANEL ,AMA (LDL- CALC) LDL cholesterol 105 mg/dL 0-99 high Cutof f value s recom ewa d by the Nat nal Tari stero l Educa tion Progr am: DEANNA ABLE: Tari stero l <200 mg/dL LDL <100 mg/dL BORDE RLINE : Tari stero l 200-2 39 mg/dL LDL 101-1 59 mg/dL HIGHE R RISK: Tari stero l >240 mg/dL LDL >160 mg/dL , HDL <40 mg/dL Not Available [facility] [address] [place] [address], [address], 12/30/2021 01:42:59 12/30/19 22 12/29/2021 LIPID PANEL ,AMA (LDL- CALC) non-HDL cholesterol 122 mg/dL no refere nce range A reaso nable goal for non-H DL tari stero l is one that is 30 mg/dL highe r than the LDL tari stero l goal. Not Available [facility] [address] [place] [address], [address], 12/30/2021 01:42:59 12/30/1912/29/2021 LIPID PANEL ,AMA (LDL- CALC) chol/HDL ratio 3.1 . 0.0-5. 0 Not Available [facility] [address] [place] [address], [address], 12/30/2021 01:42:59 12/30/1912/29/2021 CMP(C OMPRE HENSI VE METAB OLIC PANEL ) sodium 137 mmol/ L 133-14 6 Not Available [facility] [place], [address], 12/30/2021 01:42:59 12/30/1912/29/2021 CMP(C OMPRE HENSI VE METAB OLIC PANEL ) potassium 4.1 mmol/ L 3.5-5. 1 Not Available [facility] [address] [place], [place] [address], [address], 12/30/2021 01:42:59 12/30/1912/29/2021 CMP(C OMPRE HENSI VE METAB OLIC PANEL ) chloride 102 mmol/ L 98-107 Not Available [facility] [address] [place], [place] [address], [address], 12/30/2021 01:42:59 12/30/1912/29/2021 CMP(C OMPRE HENSI VE METAB OLIC PANEL ) carbon dioxide 24 mmol/ L 21-31 Not Available [facility] [address] [place], [place] [address], [address], 12/30/2021 01:42:59 12/30/19 22 12/29/2021 CMP(C OMPRE HENSI VE METAB OLIC PANEL ) anion gap 11 mmol/ L 4-13 Not Available [facility] [address] [place], [place] [address], [address], 12/30/2021 01:42:59 12/30/1912/29/2021 CMP(C OMPRE HENSI VE METAB OLIC PANEL ) blood urea nitrogen 19 mg/dL 7-25 Not Available [facility] [address] [place], [place] [address], [address], 12/30/2021 01:42:59 12/30/19 22 12/29/2021 CMP(C OMPRE HENSI VE METAB OLIC PANEL ) creatinine 0.63 mg/dL 0.60-1 .30 Not Available [facility] [place], [address], 12/30/2021 01:42:59 12/30/1912/29/2021 CMP(C OMPRE HENSI VE METAB OLIC PANEL ) egfrcr (CKD-epi 2020) >90 mL/mi n/1.7 3_m2 >=60 Not Available [facility] [place], [address], 12/30/2021 01:42:59 12/30/1912/29/2021 CMP(C OMPRE HENSI VE METAB OLIC PANEL ) calcium 9.5 mg/dL 8.3-10 .5 Not Available [facility] [place], [address], 12/30/2021 01:42:59 12/30/1912/29/2021 CMP(C OMPRE HENSI VE METAB OLIC PANEL ) glucose 77 mg/dL 70-100 Not Available [facility] [address] [place], [place] [address], [address], 12/30/2021 01:42:59 12/30/1912/29/2021 CMP(C OMPRE HENSI VE METAB OLIC PANEL ) protein, total 7.5 g/dL 6.4-8. 3 Not Available [facility] [place], [address], 12/30/2021 01:42:59 12/30/1912/29/2021 CMP(C OMPRE HENSI VE METAB OLIC PANEL ) albumin 4.6 g/dL 3.5-5. 0 Not Available [facility] [address] [place], [place] [address], [address], 12/30/2021 01:42:59 12/30/1912/29/2021 CMP(C OMPRE HENSI VE METAB OLIC PANEL ) ALT 11 units /L 9-43 Not Available [facility] [address] [place] [address], [address], 12/30/2021 01:42:59 12/30/19 22 12/29/2021 CMP(C OMPRE HENSI VE METAB OLIC PANEL ) alkaline phosphatase 123 units /L 34-104 high Not Available [facility] [address] [place] [address], [address], 12/30/2021 01:42:59 12/30/19 22 12/29/2021 CMP(C OMPRE HENSI VE METAB OLIC PANEL ) AST 87 units /L 13-39 high Not Available [facility] [address] [place] [address], [address], 12/30/2021 01:42:59 12/30/1912/29/2021 CMP(C OMPRE HENSI VE METAB OLIC PANEL ) bilirubin, total 1.0 mg/dL 0.2-1. 2 Not Available [facility] [address] [place] [address], [address], 12/30/2021 01:42:59 12/30/1912/29/2021 TSH, REFLE X FREE T4 TSH 1.09 uIU/m L 0.30-5 .33 Not Available [facility] [address] [place] [address], [address], 12/30/2021 01:43:00 12/30/1912/29/2021 VITAM IN D, 25-OH (TOTA L D2/D3 ) vitamin D, 25-hydroxy, total 25.9 NG/mL 30.0-1 00.0 low [place]ive of Defic iency : <20 ng/mL [place] stive of Insuf ficie ncy: 20-29 ng/mL Sug[place] stive of Suffi cienc y: 30-10 0 ng/mL Sugge stive of Toxic ity: >150 ng/mL Not Available [facility] [address], [place], [address], 12/30/2021 01:43:00 12/30/19 22 12/29/2021 IMAGE GUIDE D PAP AND HPV REGAR DLESS image guided Pap, HPV regardless of Pap result SEE RESULT S BELOW CASE REPOR T: Cytol ogy Gynec ologi dorothea Repor t Case: [id number] Autho maria t wright Provi jamar: Dontae London MD Colle cted: 12/29 1538 Order ing Locat ion: [place] [facility] Recei dave: 12/30 0425 First Scree n: Sherrie Fraire , CT Rescr een: Sukh Butt am, CT Speci men: Scree walter Pap - Image d, Cervi x STATE MENT OF ADEQU ACY: Satis facto ry for evalu ation Trans forma tion zone compo nent prese nt FINAL DIAGN OSIS: Negat any for Intra epith elial Lesio n or Jennifer garcia (NIL) . Marlene talley d by Sukh Butt am, CT on [...] is recom ewa d, as clini siri warrdonta nted. Not Available [facility] (Lab) [address], [place], [address], 01/04/2022 13:25:17 01/11/20 23 01/10/2023 IMAGE GUIDE D PAP AND HPV REGAR DLESS image guided Pap, HPV regardless of Pap result SEE RESULT S BELOW CASE REPOR T: Cytol ogy Gynec ologi dorothea Repor t Case: [id number] Autho maria t g Provi jamar: Freida Monge NP Colle cted: [...] Negat any for Intra epith elial Lesio anatoliy or Jennifer garcia (NIL) . Elect ros [...] as clini siri rojas nted. Not Available [facility] (Lab) [address], [place], [address], 01/14/2023 13:15:25 Result Notes None recorded. Problems Name Problem SNOMED Code Status Onset Date Resolution Date Notes Provider Name and Address Organization Details Recorded Time Anemia 710268106 Completed slowfe daily [facility] 11:54:28 94138106 Completed 202007/21/2021 Rakel hernandez [facility] 2 11:54:33 Problem Notes None recorded. Procedures Surgical History Date Name Laterality Status Provider Name and Address Organization Details Recorded Time 2 Date of Last Pap Smear completed [facility] 01/03/2023 16:51:59 2 IUD Insertion completed [facility] 08/11/2021 11:31:46 1 extraction of wisdom tooth completed Dayanara Alvarado [facility] 02/22/2021 11:34:14 9 tonsilectomy/a denoids completed Dayanara Alvarado [facility] 02/22/2021 11:34:27 tonsilectomy/a denoids completed Anju Chester [facility] 01/10/2023 17:00:06 Imaging Results None recorded. Procedure Notes None recorded. Medical Equipment None Reported. Allergies Allergen ID Allergen Name Allergen Category Reaction Reaction Severity Criticality Documentation Date Start Date Code Code System Note Provider Name and Address Organization Details Recorded Time 81547 Substance with sulfonami de structure and antibacte rial mechanism of action (substanc e) medicatio n Not available Not available Not available 12/14/2020 83142 8003 SNOMED Sabra Kebede [facility] 12:52:00 45811 Bactrim medicatio n nausea severe Not available 12/14/2020 34143 9 RxNorm Sabra Kebede [facility] 12:52:09 00357 sulfabenz amide Not available nausea moderate Not available 12/28/2020 34249 RxNorm Nora Young [facility] 17:45:06 Medications Name Sig Start [...] Body mass index (BMI) Body weight Systolic And Diastolic Provider Name and Address Organization Details Last Updated DateTime 07/25/2021 157.48 cm 29.6 kg/m2 89118.96 g 121/85 mm[Hg] [facility] 07/25/2021 10:51:30 Date Recorded Body height Body mass index (BMI) Body weight Systolic And Diastolic Provider Name and Address Organization Details Last Updated DateTime 08/11/2021 157.48 cm 29.8 kg/m2 97842.56 g 132/86 mm[Hg] [facility] 08/11/2021 11:13:08 Date Recorded Body height Body mass index (BMI) Body weight Systolic And Diastolic Provider Name and Address Organization Details Last Updated DateTime 09/11/2021 157.48 cm 29.6 kg/m2 56461.96 g 138/73 mm[Hg] [facility] 09/11/2021 17:29:54 Date Recorded Body height Body mass index (BMI) Body weight Systolic And Diastolic Provider Name and Address Organization Details Last Updated DateTime 12/29/2021 157.48 cm 29.3 kg/m2 87128.78 g 130/89 mm[Hg] [facility] 12/29/2021 14:15:55 Date Recorded Body height Body mass index (BMI) Body weight Systolic And Diastolic Provider Name and Address Organization Details Last Updated DateTime 01/10/2023 157.48 cm 29.4 kg/m2 15209.37 g 132/85 mm[Hg] Anju Chester [facility] 01/10/2023 16:59:18 Social History Question Answer Notes LastModified by Organizat ion Details LastModified Time Tobacco Smoking Status Never Smoker [facility] 09/11/2021 17:06:50 Do You Have An Advance Directive? No Information n ot available 12/28/2020 If You Are , What Was Your Level Of Alcohol Consumption Prior To ? None [email or web address] Information not available 09/11/2021 How Many Years [...] Or The Highest Degree You Have Received? [id number] Information not available 12/28/2020 Are There Any [...] Has Tobacco Cessation Counseling Been Provided? No [email or web address] Information not available 09/11/2021 Have You Used IV Drugs? No Information not available 12/28/2020 Do You Have Difficulty Walking Or Climbing Stairs? No [email or web address] Information not available 09/11/2021 Sex: Unknown Functional Status Question Answer Note LastModified by Organizat ion Details LastModified Time Do you use any illicit or recreational drugs? No Information not available 12/28/2020 Do you or have you ever used any other forms of tobacco or nicotine? No [email or web address] Information not available 09/11/2021 What is your level of alcohol consumption? None Information not available 12/28/2020 Are you able to walk independently without assistance or assistive devices? [email or web address] Information not available 12/28/2020 Are you able to care for yourself independently? 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 No Information not available 09/11/2021 What is your exercise level? Moderate Information not available 12/28/2020 Mental Status Question Answer Note LastModified by Organization D etails LastModified Time Do you feel stressed (tense, restless, nervous, or anxious, or unable to sleep at night)? [id number] Information not available 12/28/2020 Family History Relationship Description Onset Age of this Age Resolved Age Notes LastModified by Organization Details LastModified Time Mother Hypertensive disorder Not available 2020 10:36:57 Father Hypertensive disorder [email or web address] Not available 2020 10:36:57 Maternal Grandmother Hypertensive disorder [email or web address] Not available 2020 10:36:57 Maternal Grandmother Malignant neoplasm of lung Not available 2020 17:45:09 Maternal Grandmother Heart disease Not available 2020 17:45:09 Maternal Grandmother Disorder of lung Not available 2020 17:45:09 Paternal Grandmother Disorder of thyroid gland Not available 2020 17:45:10 Medical History Condition Response Allergies (Food, seasonal, environmental ) Y Other N Drug/Latex Allergies/Reactions Y Breast Cancer N Blood Transfusion N Lung Disease N Dermatologic Disorders N Defects or Inherited Disease N Breast Problem N Gestational Diabetes N Hematologic disorders N Anesthesia Complications N History of STI N Deep Vein Thrombosis N Polycystic ovary syndrome N Anxiety Disorder Y Autoimmune disease N Arthritis N Polyps N Infertility N History of abnormal pap N Acid Reflux (GERD) N Cancer N Varicosities N Stroke N [...] Diagnosis SNOMED-CT Code Diagnosis ICD10 Code Diagnosis IMO Codes Diagnosis Note [id number] [address] [address] 12/15/2020 10:28:27 12/15/2020 11:31:00 Gynecologic examination 02887823 Z01.419 Z11.51 test positive 164712680 Z32.01 Risk factors addressed: Tobacco Cessation, Safe Sexual Practices, environmen soren, work hazards, travel restrictio ns, seat belt use.Eat a health well balanced diet, avoid alcohol, tobacco, and street drugs.Enga ge in daily low impact exercise, avoid temperatur e extremes, and cat, rodent, and bird feces.Avoi d travel to areas where zika virus is a concern.Of fered cf/sma/nip t. Lloyd wright all 3. Handouts given and discussed with patient.Ch ildbirth classes recommende d.New OB sheet given.If previous , counseling . Pt has already had covid vaccine. Encouraged flu vaccine.Pt verbalizes that she understand s the importance of above instructio ns.All questions were answered.P atient reminded to have annual well woman examinatio n and address [facility] . [id number] Caesar London MD [place] [address] [address] 12/15/2020 12:27:50 12/15/2020 12:52:32 [id number] Caesar London MD [place] [address] [address] 12/28/2020 16:56:07 12/28/2020 17:44:50 Uterine size for dates discrepancy 582536331 O26.841 Z3A.12 [id number] Caesar London MD [place] [address] [address] 12/28/2020 16:59:53 12/29/2020 15:30:56 Routine care 426190387 Z34.01 [id number] Sheba Groves [facility] [address] [address] 01/25/2021 17:56:16 01/30/2021 13:38:53 Routine care [id number] Z34.92 [id number] Caesar London MD [place] [address] [address] 01/25/2021 18:49:00 01/26/2021 03:50:12 [id number] Caesar London MD [place] [address] [address] 02/22/2021 11:17:30 02/22/2021 13:17:08 screening for malformation 249386597 Z36.3 [id number] Sheba Groves [facility] [address],[place] [address] 02/22/2021 11:18:34 02/22/2021 11:54:45 Routine care 469022226 Z34.92 [id number] Kirsten Bañuelos MD [place] [address] [address] 03/21/2021 15:29:42 03/21/2021 16:20:16 screening 331267378 Z36.2 [id number] Kirsten Bañuelos MD [place] [address] [address] 03/21/2021 15:30:27 03/22/2021 16:08:35 Routine care 289914417 Z34.02 [id number] Kirsten Bañuelos MD [place] [address] [address] 04/17/2021 16:25:40 04/17/2021 16:53:38 Routine care 158016458 Z34.02 [id number] Ashley Portillo [facility] [address] [address] 05/01/2021 16:55:37 05/01/2021 18:22:24 Routine care 888206879 Z34.93 [id number] Sheba Groves, [facility] [address] [address] 05/17/2021 16:20:57 05/17/2021 17:39:19 Routine care 809012386 Z34.92 [id number] Caesar London MD [place] [address] [address] 06/01/2021 11:57:43 06/01/2021 12:43:55 Routine care 777359745 Z34.01 [id number] Caesar London MD [place] [address] [address] 06/15/2021 16:58:57 06/15/2021 17:35:14 Uterine size for dates discrepancy 794649387 O26.841 Z3A.36 [id number] Caesar London MD [place] [address],[place] [address] 06/15/2021 16:59:29 06/15/2021 18:10:00 Routine care [id number] Z34.01 [id number] Caesar London MD [place] [address],[place] [address] 06/22/2021 16:41:26 06/22/2021 20:03:46 Routine care 557531050 Z34.01 [id number] Caesar London MD [facility] [facility] [address],[place] [address] 06/23/2021 14:42:53 06/23/2021 15:37:07 -induced hypertension [id number] O13.9 [id number] Caesar London MD [facility] [address],[place] [address] 06/23/2021 15:59:05 06/23/2021 17:01:20 -induced hypertension [id number] O13.9 [id number] Caesar London MD [facility] [address],[place] [address] 07/05/2021 17:13:20 07/05/2021 18:23:01 -induced hypertension [id number] O13.9 this patient is a 35-year-ol d [...] to monitor her blood pressure at home. [id number] Caesar London MD [facility] [address],[place] [address] 07/25/2021 10:33:06 07/25/2021 11:54:48 care [id number] Z39.2 this patient is a 35-year-ol d female presents for follow-up. She has not intercours e. She no trouble with bleeding. She is breastfeed ing. Her mood is good. Her baby is well. We have agreed to insert Mirena. We had lengthy discussion on contracept ion. [id number] Caesar London MD [facility] [address],[place] [address] 08/11/2021 11:00:15 08/11/2021 11:40:19 Contraception care management [id number] Z30.9 IUD inserted without complicati ons. [id number] Caesar London MD [facility] [address],[place] [address] 09/11/2021 17:05:49 09/12/2021 14:35:43 Contraception care management [id number] Z30.9 this patient is a 35-year-ol d female presents for IUD check. She is reporting intermitte nt bleeding. It is moderate. She denies any pain. Speculum exam was performed. The IUD appears well placed within the uterus. She was to continue to eat with the IUD. We agreed to talk in 4 weeks for bleeding persisted. [id number] Caesar London MD [facility] [address],[place] [address] 12/29/2021 14:00:32 12/29/2021 15:32:40 Gynecologic examination [id number] Z01.419 Annual gynecologi dorothea exam performed. Patient [...] Cholestero l - today Pap - today [id number] JOEY Ramos [facility] [address],[place] [address] 01/10/2023 16:47:21 01/11/2023 10:09:24 Gynecologic examination [id number] Z01.419 Z11.51 [facility] Mi[facility] I[facility], inserted 08/11/21hap py [...] None Recorded Advance Directives Directive N: Payers Insurance Date Sequence Insurance Name Policy Number Policy Ramachandran Covered Member ID Ramachandran Member ID Guarantor Name 02/18/2023 1 [facility] [id number] Leila Guillen [id number] Leila Guillen Notes Date Note Type Note Provider Name and Address Organization Details Recorded Time 07/26/19 22 text/ht ml VisitReported by Patient this patient is a 35-year-old female presents for follow-up. She has not intercourse. She no trouble with bleeding. She is . Her mood is good. Her baby is well. We have agreed to insert Mirena. We had lengthy discussion on contraception. Caesar London MD [address], [place], [address], [facility] 07/25/2021 11:49:54 08/12/19 22 text/ht ml Patient presents for IUD insertion. Caesar London MD [address], [place], [address], [facility] 08/11/2021 11:34:09 09/12/19 22 text/ht ml this patient is a 35-year-old female presents for IUD check. She is reporting intermittent bleeding. It is moderate. She denies any pain. Speculum exam was performed. The IUD appears well placed within the uterus. She was to continue to eat with the IUD. We agreed to talk in 4 weeks for bleeding persisted. Caesar London MD [address], [place], [address], [facility] 09/11/2021 19:52:47 12/30/19 22 text/ht ml Annual GYNReported by PatientHistoryFor history, patient reportsno gynecologic complaints.Genitourinary symptomsFor menstrual cycle, patient reportsnormal menses. For urinary symptoms, patient reportsno hematuriaandno incontinence. For vulva, patient reportsno genital lesion. For vagina, patient reportsnormal vaginal discharge.Breast symptomsFor breast, patient reportsno breast pain,no breast lump, andno nipple discharge.ContraceptionFor current contraception, patient reportssatisfied with current contraceptionandintrauterine device (iud).Endocrine symptomsFor sexual complaints, patient reportsno sexual complaintsandno pain during intercourse. For menopausal symptoms, patient reportsno menopausal symptomsandnormal vaginal lubrication.Psychological symptomsFor psychological symptoms, patient reportsanxietybut reportsno depression. Caesra Lnodon MD [address], [place], [address], [facility] 12/29/2021 15:01:32 01/11/20 23 text/ht ml Annual GYNReported by PatientGenitourinary symptomsFor menstrual cycle, patient reportsnormal menses. For urinary symptoms, patient reportsno hematuriaandno incontinence. For vulva, patient reportsno genital lesion. For vagina, patient reportsnormal vaginal discharge.Breast symptomsFor breast, patient reportsno breast pain,no breast lump, andno nipple discharge.ContraceptionFor current contraception, patient reportssatisfied with current contraceptionandintrauterine device (iud)(mirena iud, inserted 08/12/2019).Endocrine symptomsFor sexual complaints, patient reportsno sexual complaints,no pain during intercourse, andnormal libido. For menopausal symptoms, patient reportsno menopausal symptomsandnormal vaginal lubrication.Psychological symptomsFor psychological symptoms, patient reportsno depression,no anxiety, andno pmdd.Preventative measuresFor preventive measures, patient reportsencourage self breast examination,encourage regular exercise,encourage no tobacco use, andencourage regular mammograms starting age 40. JOEY Ramos [address], [place], [address], [facility] 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 Status 12/29/19 21 1 O Positive 162 CLOSED Fetus Data First Name Last Name Admitted to NICU Weight (g) Sex Living Outcome Pediatric Complications Fetus ID Race Codes Race Delivery Type 3005.04 7 F true Full Term meconium [id number] Vaginal Delivery Problems Problem Notes Problem Name Start Date End Date Resolution Snomed Code Not e Anemia [id number] slowfe nile ly 1 tab Bogdan Calculation [...] Gestation 0 [email or web address] 12/28/2020 07/10/19 22 0 Pre-duarte Flowsheet Flowsheet Date 12/28/2020 Castillo Score Blood Edema Fundus Height Fundus Units Glucose Ketones Leukocytes Nitrite Labor Signs Protein Cervic Dilation Cervic Effacement Cervic Station 12 Type Weight in lbs Pre/Post Dialysis Refused Weight 164.14563759849 BP Diastolic BP Location Tested BP Systolic [...] Weight in lbs Pre/Post Dialysis Refused Weight 166.285469378232 BP Diastolic BP Location Tested BP Systolic [...] Weight in lbs Pre/Post Dialysis Refused Weight 174.89451890708 BP Diastolic BP Location Tested BP Systolic [...] Weight in lbs Pre/Post Dialysis Refused Weight 175.996849906928 BP Diastolic BP Location Tested BP Systolic [...] Weight in lbs Pre/Post Dialysis Refused Weight 182.274691547869 BP Diastolic BP Location Tested BP Systolic [...] Weight in lbs Pre/Post Dialysis Refused Weight 182.008976284175 BP Diastolic BP Location Tested BP Systolic [...] Weight in lbs Pre/Post Dialysis Refused Weight 184.799755635075 BP Diastolic BP Location Tested BP Systolic BP Type 83 139 Fetus Heart Rate Present A 135 Fetus Movement A Yes Comments PATIENT STATES THAT HAVING C ONTRACTIONS, DISCHARGE, AND SWELLING. 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, f/u 2 weeks Flowsheet Date 06/01/2021 Castillo Score Blood Edema Fundus Height Fundus Units Glucose Ketones Leukocytes Nitrite Labor Signs Protein Cervic Dilation Cervic Effacement Cervic Station 37 Type Weight in lbs Pre/Post Dialysis Refused Weight 187.434743767168 BP Diastolic BP Location Tested BP Systolic [...] Weight in lbs Pre/Post Dialysis Refused Weight 189.267816829807 BP Diastolic BP Location Tested BP Systolic [...] Weight in lbs Pre/Post Dialysis Refused Weight 190.691637759338 BP Diastolic BP Location Tested BP Systolic [...] Weight in lbs Pre/Post Dialysis Refused Weight 193.52739676816 BP Diastolic BP Location Tested BP Systolic [...] Weight in lbs Pre/Post Dialysis Refused Weight 173.012816511811 BP Diastolic BP Location Tested BP Systolic [...] Estim ated Date of Delivery false Thalassemia (Setswana, Lao, Mediterranean, Or Background): MCV < 80 false Neural Tube Defect (Meningomyelocele, Spina Bifi da, Or Anencephaly) false Congenital Heart Defect false Down Syndrome false Jorge L-Sachs (eg, Taoist, Cajun, Indian-Chinese) f alse Rosio Disease false Sickle Cell Disease Or Trait () false Hemophilia Or Other Blood Disorders false Muscular Dystrophy false Cystic Fibrosis false Elizabeth's Chorea false Intellectual Disability/Autism false If Yes, [...]
== END 2024-12-18 13:54 | disposition home or self-care (01) ==
PROVIDERS: PCP Internal Medicine; Visit Provider Nurse Practitioner
DX: R20.0 Anesthesia of skin (principal); R20.2 Paresthesia of skin; H53.9 Unspecified visual disturbance; R42 Dizziness and giddiness
CPT/HCPCS: 70553; A9577